=== PATIENT | male | born 1970 | race Caucasian/White ===

== ENCOUNTER 2016-09-28 19:17 | Emergency (ER) | payer MEDICAID, OTHER ==
[~2016-09-28] VITALS: Ht 170.2 cm; Wt 86.2 kg
[2016-09-28 19:56] LABS: BASOPHILS # (AUTO) 0.1 /CMM (0.0-0.2); BASOPHILS % (AUTO) 1.1 % (0.0-2.0); DIFF TOTAL % 100 %; EOSINOPHILS # (AUTO) 0.2 /CMM (0.0-0.7); EOSINOPHILS % (AUTO) 2.5 % (0.0-6.0); HEMATOCRIT 43 % (39-51); HEMOGLOBIN 14.6 g/dL (13.5-17.5); LYMPHOCYTES # (AUTO) 1.7 /CMM (0.8-4.8); LYMPHOCYTES % (AUTO) 22.7 % (20.0-44.0); MEAN CORPUSCULAR HEMOGLOBIN 31 PG (26.0-33.0); MEAN CORPUSCULAR HGB CONC 34 g/dl (31.0-36.0); MEAN CORPUSCULAR VOLUME 89 fL (80-96); MONOCYTES # (AUTO) 0.8 /CMM (0.1-1.30); MONOCYTES % (AUTO) 10.1 % (2.0-12.0); NEUTROPHILS # (AUTO) 4.9 /CMM (1.8-8.9); NEUTROPHILS % (AUTO) 63.6 % (43.0-81.0); PLATELET COUNT (AUTO) 317 /CMM (150-450); RED BLOOD CELL COUNT(AUTO) 4.78 MIL/uL (4.5-6.0); WHITE BLOOD COUNT (AUTO) 7.7 K/uL (4.3-11.0)
[2016-09-28 20:07] LABS: ANION GAP 13 (5-14); CALCIUM, SERUM 8.5 mg/dL (8.5-10.1); CARBON DIOXIDE 26 mmol/L (21-32); CHLORIDE 104 mmol/L (98-107); GFR 80 mL/min (>60); GLUCOSE 102 mg/dL (74-106); POTASSIUM 3.9 mmol/L (3.5-5.1); SODIUM SERUM 139 mmol/L (136-145); UREA NITROGEN, BLOOD 13 mg/dL (7-18)
[2016-09-28 20:17] LABS: ALANINE AMINOTRANSFERASE 67 U/L (12-78); ALBUMIN 3.9 g/dL (3.4-5.0); ASPARTATE AMINOTRANSFERASE 30 U/L (15-37); BILIRUBIN,TOTAL 0.2 mg/dL (0.2-1.0); TOTAL PROTEIN, SERUM 7.3 g/dL (6.4-8.2)
[2016-09-28 20:18] LABS: ACETAMINOPHEN 0 ug/ml (10-30); INDIRECT BILIRUBIN 0.2 mg/dL (0.0-1.1); SALICYLATE 2.7 mg/dL (2.8-20.0)
[2016-09-28 20:41] LABS: ADD UA MICROSCOPIC NO; KETONES,URINE Negative (NEGATIVE); LEUKOCYTE ESTERASE ,URINE Negative (NEGATIVE); PH,URINE 5.5 (5.0-8.0)
[2016-09-28 20:46] LABS: CANNABINOID, URINE NEGATIVE (NEGATIVE); PHENCYCLIDINE SCREEN,URINE NEGATIVE (NEGATIVE)
[2016-09-29 00:07] VITALS: BP 128/84
== END 2016-09-29 00:07 | disposition home or self-care (01) ==
LOC: ER 19:21
DX: F41.9 Anxiety disorder, unspecified (principal); K75.9 Inflammatory liver disease, unspecified; F22 Delusional disorders; Z88.1 Allergy status to other antibiotic agents; Z88.6 Allergy status to analgesic agent
CPT/HCPCS: 36415; 80048-TC; 80076-TC; 80305; 81000-TC; 85025-TC; A4606; G6038-TC; G6039-TC; G6040-TC; Z7610

== ENCOUNTER 2016-09-29 07:30 | Emergency (ER) | payer OTHER ==
[~2016-09-29] VITALS: Ht 170.2 cm; Wt 86.2 kg
[2016-09-29 07:38] VITALS: BP 141/79
== END 2016-09-29 08:20 | disposition left against medical advice (07) ==
LOC: ER 07:32
DX: F41.9 Anxiety disorder, unspecified (principal); Z88.1 Allergy status to other antibiotic agents; Z88.6 Allergy status to analgesic agent
CPT/HCPCS: A4606; Z7610

== ENCOUNTER 2017-05-17 16:50 | Emergency (ER) | payer OTHER ==
[~2017-05-17] VITALS: Ht 170.2 cm; Wt 86.2 kg
[2017-05-17 17:08] VITALS: BP 141/69
== END 2017-05-17 17:35 | disposition home or self-care (01) ==
LOC: ER 16:51
DX: Z76.0 Encounter for issue of repeat prescription (principal); Z76.5 Malingerer [conscious simulation]; K75.9 Inflammatory liver disease, unspecified; F20.0 Paranoid schizophrenia; F41.9 Anxiety disorder, unspecified; K46.9 Unspecified abdominal hernia without obstruction or gangrene; Z88.1 Allergy status to other antibiotic agents; Z88.8 Allergy status to other drugs, medicaments and biological substances
CPT/HCPCS: 99283; A4606; Z7610

== ENCOUNTER 2017-06-29 13:57 | Emergency (ER) | payer OTHER ==
[~2017-06-29] VITALS: Ht 170.2 cm; Wt 93.0 kg
[2017-06-29 14:06] VITALS: BP 128/72
--- NOTE | 2017-06-29 14:33 | NUR ---
URINE SENT TO LAB
[2017-06-29 14:57] LABS: BASOPHILS % (AUTO) 0.6 % (0.0-2.0); EOSINOPHILS # (AUTO) 0.2 /CMM (0.0-0.7); EOSINOPHILS % (AUTO) 2.9 % (0.0-6.0); HEMATOCRIT 42 % (39-51); HEMOGLOBIN 14.1 g/dL (13.5-17.5); LYMPHOCYTES # (AUTO) 2.2 /CMM (0.8-4.8); LYMPHOCYTES % (AUTO) 30.9 % (20.0-44.0); MEAN CORPUSCULAR HEMOGLOBIN 29 PG (26.0-33.0); MEAN CORPUSCULAR HGB CONC 33 g/dl (31.0-36.0); MEAN CORPUSCULAR VOLUME 88 fL (80-96); MONOCYTES # (AUTO) 0.9 /CMM (0.1-1.30); MONOCYTES % (AUTO) 11.7 % (2.0-12.0); NEUTROPHILS % (AUTO) 53.9 % (43.0-81.0); PLATELET COUNT (AUTO) 252 /CMM (150-450); RDW COEFFICIENT OF VARIATION 13.3 (11.5-15.0); RED BLOOD CELL COUNT(AUTO) 4.81 MIL/uL (4.5-6.0); WHITE BLOOD COUNT (AUTO) 7.3 K/uL (4.3-11.0)
[2017-06-29 15:06] LABS: CALCIUM, SERUM 8.6 mg/dL (8.5-10.1); POTASSIUM 4.3 mmol/L (3.5-5.1)
[2017-06-29 15:12] LABS: ALBUMIN 3.6 g/dL (3.4-5.0); BILIRUBIN,TOTAL 0.2 mg/dL (0.2-1.0)
[2017-06-29] MEDS ORDERED: LORAZEPAM INJ 2 MG/ML VIAL ONE (15:28)
[2017-06-29] MEDS ORDERED: LORAZEPAM INJ 2 MG/ML VIAL IM ONE (15:30)
== END 2017-06-29 15:44 | disposition home or self-care (01) ==
LOC: ER 14:01
DX: F41.9 Anxiety disorder, unspecified (principal); F20.9 Schizophrenia, unspecified; Z88.1 Allergy status to other antibiotic agents; Z88.6 Allergy status to analgesic agent
CPT/HCPCS: 36415; 80053; 83690; 85025; 96372; 99284; A4606; J2060; Z7610

== ENCOUNTER 2017-07-12 12:27 | Emergency (ER) | payer OTHER ==
[~2017-07-12] VITALS: Ht 170.2 cm; Wt 72.6 kg
[2017-07-12 12:31] VITALS: BP 132/98
--- NOTE | 2017-07-12 12:39 | NUR ---
PT VERBALLY DISCHARGE. STABLE CONDITION.
== END 2017-07-12 12:40 | disposition home or self-care (01) ==
LOC: ER 12:28
DX: F41.9 Anxiety disorder, unspecified (principal); Z76.0 Encounter for issue of repeat prescription; K75.9 Inflammatory liver disease, unspecified; F20.0 Paranoid schizophrenia; Z88.1 Allergy status to other antibiotic agents; Z88.8 Allergy status to other drugs, medicaments and biological substances
CPT/HCPCS: 99284; A4606; Z7610

== ENCOUNTER 2017-07-15 12:10 | Emergency (ER) | payer OTHER ==
[~2017-07-15] VITALS: Ht 170.2 cm; Wt 90.7 kg
--- NOTE | 2017-07-15 12:20 | NUR ---
SELF PRESENTS TO ER C/O " PARANOID ANXIOUS, PEOPLE FOLLOWING ME" DENIES SI/HI. A/OX4. BREATHING EVEN AND UNLABORED. NO SOB. VITALS STABLE. SAFETY AND COMFORT MEASURES IN PLACE. AWAITING MD ORDERS.
[2017-07-15] MEDS ORDERED: LORAZEPAM INJ 2 MG/ML VIAL ONE (12:47)
[2017-07-15 12:58] LABS: BASOPHILS # (AUTO) 0.1 /CMM (0.0-0.2); BASOPHILS % (AUTO) 0.8 % (0.0-2.0); EOSINOPHILS # (AUTO) 0.2 /CMM (0.0-0.7); EOSINOPHILS % (AUTO) 3.3 % (0.0-6.0); HEMATOCRIT 42 % (39-51); HEMOGLOBIN 14.1 g/dL (13.5-17.5); LYMPHOCYTES # (AUTO) 2.5 /CMM (0.8-4.8); LYMPHOCYTES % (AUTO) 33.9 % (20.0-44.0); MEAN CORPUSCULAR HEMOGLOBIN 30 PG (26.0-33.0); MEAN CORPUSCULAR HGB CONC 34 g/dl (31.0-36.0); MEAN CORPUSCULAR VOLUME 89 fL (80-96); MONOCYTES # (AUTO) 0.9 /CMM (0.1-1.30); MONOCYTES % (AUTO) 11.9 % (2.0-12.0); NEUTROPHILS # (AUTO) 3.5 /CMM (1.8-8.9); NEUTROPHILS % (AUTO) 50.1 % (43.0-81.0); PLATELET COUNT (AUTO) 266 /CMM (150-450); WHITE BLOOD COUNT (AUTO) 7.2 K/uL (4.3-11.0)
[2017-07-15 13:00] LABS: APPEARANCE,URINE Clear (CLEAR); BILIRUBIN,URINE Negative (NEGATIVE); BLOOD, URINE Negative Ery/uL (NEGATIVE); COLOR,URINE Yellow (YELLOW); KETONES,URINE Negative (NEGATIVE); LEUKOCYTE ESTERASE ,URINE Negative (NEGATIVE); NITRITE, URINE Negative (NEGATIVE); PH,URINE 5.5 (5.0-8.0); PROTEIN,URINE Negative (NEGATIVE); UGLUCOSE Negative (NEGATIVE); UROBILINOGEN,URINE 0.2 EU/dL (0.2)
[2017-07-15] MEDS ORDERED: LORAZEPAM INJ 2 MG/ML VIAL IVP ONE (13:00)
[2017-07-15] MEDS ORDERED: IV NS 0.9% 1,000 ML BAG IV ONE (13:00)
--- NOTE | 2017-07-15 13:02 | NUR ---
NEW IV STARTED ON LAC, 18 G. BLOOD DRAWN AND SENT TO LAB. PATIENT MEDICATED PER MD ORDERS.
[2017-07-15 13:09] LABS: CALCIUM, SERUM 8.5 mg/dL (8.5-10.1); CREATININE 0.9 mg/dL (0.6-1.3); POTASSIUM 3.8 mmol/L (3.5-5.1)
[2017-07-15 13:12] LABS: INR 0.86 (0.87-1.13); PROTHROMBIN TIME 8.9 SECS (9.5-12.7)
[2017-07-15 13:15] LABS: ALBUMIN 3.6 g/dL (3.4-5.0); BILIRUBIN,TOTAL 0.2 mg/dL (0.2-1.0)
[2017-07-15 16:03] VITALS: BP 134/76
--- NOTE | 2017-07-15 16:04 | NUR ---
IV removed. Catheter intact and site benign. Pressure and 4x4 applied to site. No bleeding noted. Patient discharged to home in stable condition. Written and verbal after care instructions given. Patient verbalizes understanding of instruction.
== END 2017-07-15 16:03 | disposition home or self-care (01) ==
LOC: ER 12:12
DX: F41.0 Panic disorder [episodic paroxysmal anxiety] (principal); Z86.19 Personal history of other infectious and parasitic diseases; F20.9 Schizophrenia, unspecified; F22 Delusional disorders; F17.200 Nicotine dependence, unspecified, uncomplicated; R79.1 Abnormal coagulation profile; Z88.6 Allergy status to analgesic agent; Z88.1 Allergy status to other antibiotic agents
CPT/HCPCS: 36415; 80048; 80076; 81001; 83690; 85025; 85730; 96361; 96374; 99284; A4606; J2060; J7030; Z7610; 81000-TC

== ENCOUNTER 2017-07-16 15:00 | Emergency (ER) | payer OTHER ==
[~2017-07-16] VITALS: Ht 170.2 cm; Wt 90.7 kg
--- NOTE | 2017-07-16 15:10 | NUR ---
SELF PRESENTS TO ER C/O DEPRESSION . DENIES SI/HI. ALSO C/O MILD NECK AND BACK PAIN. A/OX 4. BREATHING EVEN AND UNLABORED. NO SOB. VITALS STABLE. SAFETY AND COMFORT MEASURES IN PLACE. AWAITING MD ORDERS.
--- NOTE | 2017-07-16 16:03 | NUR ---
CALLED ART FOR PSYCH EVAL, ETA WITHIN THE HOUR
[2017-07-16] MEDS ORDERED: TRAMADOL HCL 50 MG TABLET ONE (16:26)
[2017-07-16] MEDS ORDERED: TRAMADOL HCL 50 MG TABLET PO ONE (16:30)
--- NOTE | 2017-07-16 16:30 | NUR ---
PATIENT MEDICATED PER MD ORDERS.
[2017-07-16] MEDS ORDERED: OLANZAPINE 5 MG/TAB.RAPDIS ONE (18:30)
[2017-07-16] MEDS ORDERED: OLANZAPINE 5 MG/TAB.RAPDIS PO ONE (18:30)
--- NOTE | 2017-07-16 19:00 | NUR ---
ASSUME PT CARE. RESTING IN BED. PROVIDED W/ SANDWICH AND ORAL FLUIDS. STABLE VITALS. SILVIA CONTINUE TO MONITOR.
--- NOTE | 2017-07-16 19:25 | NUR ---
FAXED PAPER WORK TO INTAKE AT [facility], I ALSO SPOKE WITH MAURILIO AND SHE NOTIFIED ME THAT THEY ARE WAITING FOR A DISCHARGE
--- NOTE | 2017-07-16 21:30 | NUR ---
SLEEPING. ON MONITOR. STABLE VITALS. WILL CONT TO MONITOR.
--- NOTE | 2017-07-16 23:25 | NUR ---
REPORT TO CHARGE NURSE ALLIE FOR [facility].
--- NOTE | 2017-07-17 01:53 | NUR ---
PT SLEEPING IN NAD, PT ON MONITOR, MD MADE AWARE WILL CONTINUE TO MONITOR.
--- NOTE | 2017-07-17 03:59 | NUR ---
Patient is resting comfortably in bed with eyes closed. Easily aroused. VSS
--- NOTE | 2017-07-17 05:51 | NUR ---
PT IN BED SLEEPING IN NAD, PT EASILY ARROUSIBLE, MD MADE AWARE WILL CONTINUE TO MONITOR.
--- NOTE | 2017-07-17 05:55 | NUR ---
[facility] CALLED AND THERE IS A BED AVAILABLE FOR PT
--- NOTE | 2017-07-17 06:30 | NUR ---
PT TOOK A TRAXI TO [facility] ALL LABS WERE GIVEN TO PT PRIOR TO LEAVING
[2017-07-17 07:14] VITALS: BP 116/76
== END 2017-07-17 07:14 ==
LOC: ER 15:05
DX: Z02.89 Encounter for other administrative examinations (principal); F32.9 Major depressive disorder, single episode, unspecified; F20.9 Schizophrenia, unspecified; F41.9 Anxiety disorder, unspecified; F17.200 Nicotine dependence, unspecified, uncomplicated; F22 Delusional disorders; Z86.19 Personal history of other infectious and parasitic diseases; Z88.1 Allergy status to other antibiotic agents; Z88.6 Allergy status to analgesic agent
CPT/HCPCS: 36415; 80305; A4606; G0480; Z7610

== ENCOUNTER 2017-08-16 13:43 | Emergency (ER) | payer OTHER ==
[~2017-08-16] VITALS: Ht 167.6 cm; Wt 72.6 kg
--- NOTE | 2017-08-16 15:25 | NUR ---
PRESENTS TO ER C/O PARANOIA. PATIENT A/OX 4, BUT SEEN TALKING TO SELF. PATIENT BREATHING EVEN AND UNLABORED. NO SOB. VITALS STABLE. SAFETY AND COMFORT MEASURES IN PLACE. AWAITING MD ORDERS.
[2017-08-16] MEDS ORDERED: OLANZAPINE 10 MG VIAL IM ONE ×2 (15:30→15:40)
[2017-08-16 15:42] LABS: BASOPHILS # (AUTO) 0.1 /CMM (0.0-0.2); BASOPHILS % (AUTO) 1.1 % (0.0-2.0); EOSINOPHILS # (AUTO) 0.2 /CMM (0.0-0.7); EOSINOPHILS % (AUTO) 2.8 % (0.0-6.0); HEMATOCRIT 45 % (39-51); LYMPHOCYTES # (AUTO) 2.6 /CMM (0.8-4.8); LYMPHOCYTES % (AUTO) 37.9 % (20.0-44.0); MEAN CORPUSCULAR HEMOGLOBIN 29 PG (26.0-33.0); MEAN CORPUSCULAR HGB CONC 33 g/dl (31.0-36.0); MEAN CORPUSCULAR VOLUME 88 fL (80-96); MONOCYTES # (AUTO) 0.7 /CMM (0.1-1.30); NEUTROPHILS # (AUTO) 3.2 /CMM (1.8-8.9); NEUTROPHILS % (AUTO) 47.2 % (43.0-81.0); PLATELET COUNT (AUTO) 347 /CMM (150-450); RDW COEFFICIENT OF VARIATION 13.2 (11.5-15.0); WHITE BLOOD COUNT (AUTO) 6.8 K/uL (4.3-11.0)
--- NOTE | 2017-08-16 15:46 | NUR ---
PATIENT MEDICATED PER MD ORDERS.
[2017-08-16 15:51] LABS: CARBON DIOXIDE 29 mmol/L (21-32); CHLORIDE 103 mmol/L (98-107); GLUCOSE 87 mg/dL (74-106); POTASSIUM 3.7 mmol/L (3.5-5.1); SODIUM SERUM 141 mmol/L (136-145); UREA NITROGEN, BLOOD 8 mg/dL (7-18)
[2017-08-16 16:04] LABS: ALANINE AMINOTRANSFERASE 81 U/L (12-78); ALBUMIN 4.3 g/dL (3.4-5.0); ALCOHOL, BLOOD < 3 mg/dL (0-0); ALKALINE PHOSPHATASE 85 U/L (46-116); ASPARTATE AMINOTRANSFERASE 38 U/L (15-37); BILIRUBIN,DIRECT 0.1 mg/dL (0.0-0.2); BILIRUBIN,TOTAL 0.7 mg/dL (0.2-1.0)
[2017-08-16 16:05] LABS: ACETAMINOPHEN < 2 ug/ml (10-30); SALICYLATE 2.2 mg/dL (2.8-20.0)
--- NOTE | 2017-08-16 19:00 | NUR ---
patient is resting in er bed. no distress noted, skin warm and dry. 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 will continue to monitor
--- NOTE | 2017-08-16 22:31 | NUR ---
urine sample obtained and sent to lab
[2017-08-16 23:07] LABS: APPEARANCE,URINE CLEAR (CLEAR); BILIRUBIN,URINE NEGATIVE (NEGATIVE); BLOOD, URINE NEGATIVE Ery/uL (NEGATIVE); COLOR,URINE YELLOW (YELLOW); KETONES,URINE NEGATIVE (NEGATIVE); LEUKOCYTE ESTERASE ,URINE NEGATIVE (NEGATIVE); NITRITE, URINE NEGATIVE (NEGATIVE); PROTEIN,URINE NEGATIVE (NEGATIVE); UGLUCOSE NEGATIVE (NEGATIVE); UROBILINOGEN,URINE 0.2 EU/dL (0.2)
--- NOTE | 2017-08-16 23:15 | NUR ---
CALLED ART PRODUCT MARKETING INTERN.
--- NOTE | 2017-08-17 01:05 | NUR ---
ART AT BED SIDE FOR PSYCH EVAL
--- NOTE | 2017-08-17 01:32 | NUR ---
per Art, we are awaiting call back from [facility] for placement Luan agrawal; [phone]
--- NOTE | 2017-08-17 01:59 | NUR ---
SPOKE WITH YI FROM [facility]. ACCEPTED DR. MARTINEZ. CALL [phone] FOR [id number] REPORT. CAN TRANSPORT S/P REPORT PER YI
--- NOTE | 2017-08-17 02:10 | NUR ---
SARIKA RN TOOK REPORT. PT WILL GO TO UNIT 1
--- NOTE | 2017-08-17 02:14 | NUR ---
[facility] CALLED FOR TRANSPORT. ETA: [phone] TRIP #: [id number]
--- NOTE | 2017-08-17 03:14 | NUR ---
REPORT WAS GIVEN TO EMT FOR TRANSPORT TO [facility]
[2017-08-17 03:16] VITALS: BP 126/77
== END 2017-08-17 03:16 ==
LOC: ER 13:46
DX: Z04.6 Encounter for general psychiatric examination, requested by authority (principal); F41.9 Anxiety disorder, unspecified; Z86.19 Personal history of other infectious and parasitic diseases; F20.0 Paranoid schizophrenia; F17.200 Nicotine dependence, unspecified, uncomplicated; Z88.1 Allergy status to other antibiotic agents; Z88.6 Allergy status to analgesic agent
CPT/HCPCS: 36415; 80048; 80076; 80305; 80329; 81001; 85025; 96372; 99284; A4606; G0480 ×2; J3490; Z7610; 81000-TC

== ENCOUNTER 2017-08-24 12:51 | Emergency (ER) | payer OTHER ==
[~2017-08-24] VITALS: Ht 170.2 cm; Wt 90.7 kg
--- NOTE | 2017-08-24 13:20 | NUR ---
AAOX3, C/O COUGH AND HEADACHE. RR IS EVEN AND UNLABORED WITH NAD NOTED. SKIN IS WARM AND DRY. AWIATING MD FOR EVAL.
--- NOTE | 2017-08-24 13:42 | NUR ---
CALLED RT FOR BREATHING TREATMENT.
[2017-08-24] MEDS: ALBUTEROL FS 2.5 MG/3 ML VIAL.NEB NEB ONE (13:46)
[2017-08-24] MEDS: IPRATROPIUM NEB FS 0.5 MG/2.5 ML AMPUL.NEB NEB ONE (13:46)
[2017-08-24] MEDS ORDERED: IPRATROPIUM NEB FS 0.5 MG/2.5 ML AMPUL.NEB ONE (13:49)
[2017-08-24] MEDS ORDERED: ALBUTEROL FS 2.5 MG/0.5 ML VIAL.NEB ONE (13:49)
[2017-08-24] MEDS ORDERED: HYDROCODONE/APAP 5/325MG 1 EACH TABLET ONE (14:17)
[2017-08-24] MEDS ORDERED: IBUPROFEN 600 MG TABLET PO ONE (14:18)
[2017-08-24] MEDS: HYDROCODONE/APAP 5/325MG 1 EACH TABLET PO ONE (14:18)
[2017-08-24] MEDS: IBUPROFEN 600 MG TABLET PO ONE (14:20)
[2017-08-24] MEDS ORDERED: LORAZEPAM 1 MG TABLET ONE (14:54)
[2017-08-24] MEDS: LORAZEPAM 1 MG TABLET PO ONE (14:56)
[2017-08-24] MEDS: predniSONE 20 MG TABLET PO ONE (14:56)
--- NOTE | 2017-08-24 14:56 | NUR ---
Patient discharged to home in stable condition. Written and verbal after care instructions given. Patient verbalizes understanding of instruction.
[2017-08-24 14:57] VITALS: BP 136/92
== END 2017-08-24 15:00 | disposition home or self-care (01) ==
LOC: ER 12:55
DX: J40 Bronchitis, not specified as acute or chronic (principal); F41.9 Anxiety disorder, unspecified; F17.200 Nicotine dependence, unspecified, uncomplicated; F20.9 Schizophrenia, unspecified; Z86.19 Personal history of other infectious and parasitic diseases; Z88.1 Allergy status to other antibiotic agents; Z88.6 Allergy status to analgesic agent
CPT/HCPCS: 71010; 94640; 99284; 99406; A4606; J7512; Z7610

== ENCOUNTER 2017-09-03 02:42 | Emergency (ER) | payer OTHER ==
[~2017-09-03] VITALS: Ht 170.2 cm; Wt 90.7 kg
--- NOTE | 2017-09-03 03:00 | NUR ---
TO BED 12 A 46 YO MALE PATIENT BIBSELF C/O INABILITY TO CONCETRATE DUE TO ANXIETY. ALSO PATIENT IS COMPLAINING OF LEFT ANKLE PAIN. PATIENT UNABLE TO DETERMINE CAUSE OF PAIN. VSS. NAD NOTED. NONDIAPHORETIC. COMFORT AND SAFETY MEASURES IN PLACE.
[2017-09-03] MEDS ORDERED: LORAZEPAM 1 MG TABLET PO ONE (04:00)
[2017-09-03] MEDS ORDERED: HYDROCODONE/APAP 5/325MG 1 EACH TABLET PO ONE (04:00)
--- NOTE | 2017-09-03 06:00 | NUR ---
PATIENT REFUSED NANCY WRAP ORDERED BY DR HAIR. ENCOURAGED PATIENT X3, HEALTH TEACHINGS DONE, PATIENT STILL REFUSED AND SAID, "I DONT NEED IT."
[2017-09-03] MEDS ORDERED: LORAZEPAM 1 MG TABLET ONE (06:04)
[2017-09-03] MEDS ORDERED: HYDROCODONE/APAP 5/325MG 1 EACH TABLET ONE (06:04)
--- NOTE | 2017-09-03 06:13 | NUR ---
Patient discharged to home in stable condition. Written and verbal after care instructions given. Patient verbalizes understanding of instruction. Cj is ambulatory with steady gait. vss. nad on dc. No further complaints.
[2017-09-03 06:14] VITALS: BP 154/98
== END 2017-09-03 06:14 | disposition home or self-care (01) ==
LOC: ER 02:44
DX: M25.572 Pain in left ankle and joints of left foot (principal); B19.20 Unspecified viral hepatitis C without hepatic coma; F41.9 Anxiety disorder, unspecified; F17.200 Nicotine dependence, unspecified, uncomplicated; Z59.0 Homelessness; Z71.6 Tobacco abuse counseling; F20.9 Schizophrenia, unspecified; Z88.1 Allergy status to other antibiotic agents; Z88.6 Allergy status to analgesic agent
CPT/HCPCS: 73610-TC; A4606; Z7610

== ENCOUNTER 2017-09-05 07:50 | Emergency (ER) | payer OTHER ==
[~2017-09-05] VITALS: Ht 170.2 cm; Wt 90.7 kg
--- NOTE | 2017-09-05 07:53 | NUR ---
CALLED FOR TRIAGE, NO RESPONSE, PT PHYSICALLY NOT IN WAITING ROOM
--- NOTE | 2017-09-05 08:12 | NUR ---
BB SELF FOR MEDICAL CLEARANCE FOR [facility] PER PT. PATIENT REPORTED SI WITH NO SPECIFIC PLAN. PT IS AFEBRILE. VSS.
--- NOTE | 2017-09-05 08:22 | NUR ---
CALLED [facility]YCHAITRIC LABOR[facility] JULIAN SHIN FOR EVALUATION
[2017-09-05] MEDS ORDERED: LORAZEPAM 1 MG TABLET PO ONE (08:30)
[2017-09-05] MEDS ORDERED: LORAZEPAM 1 MG TABLET ONE (08:34)
[2017-09-05 08:39] LABS: BASOPHILS # (AUTO) 0.1 /CMM (0.0-0.2); BASOPHILS % (AUTO) 0.7 % (0.0-2.0); EOSINOPHILS # (AUTO) 0.1 /CMM (0.0-0.7); EOSINOPHILS % (AUTO) 0.7 % (0.0-6.0); HEMATOCRIT 40 % (39-51); HEMOGLOBIN 13.5 g/dL (13.5-17.5); LYMPHOCYTES # (AUTO) 2.6 /CMM (0.8-4.8); LYMPHOCYTES % (AUTO) 24.2 % (20.0-44.0); MEAN CORPUSCULAR HEMOGLOBIN 30 PG (26.0-33.0); MEAN CORPUSCULAR HGB CONC 34 g/dl (31.0-36.0); MEAN CORPUSCULAR VOLUME 88 fL (80-96); MONOCYTES # (AUTO) 0.9 /CMM (0.1-1.30); MONOCYTES % (AUTO) 8.8 % (2.0-12.0); NEUTROPHILS # (AUTO) 6.9 /CMM (1.8-8.9); NEUTROPHILS % (AUTO) 65.6 % (43.0-81.0); PLATELET COUNT (AUTO) 395 /CMM (150-450); RDW COEFFICIENT OF VARIATION 13.6 (11.5-15.0); RED BLOOD CELL COUNT(AUTO) 4.53 MIL/uL (4.5-6.0); WHITE BLOOD COUNT (AUTO) 10.6 K/uL (4.3-11.0)
[2017-09-05 08:47] LABS: CALCIUM, SERUM 8.6 mg/dL (8.5-10.1); CARBON DIOXIDE 28 mmol/L (21-32); CHLORIDE 104 mmol/L (98-107); CREATININE 0.9 mg/dL (0.6-1.3); GLUCOSE 93 mg/dL (74-106); POTASSIUM 3.4 mmol/L (3.5-5.1); SODIUM SERUM 141 mmol/L (136-145); UREA NITROGEN, BLOOD 20 mg/dL (7-18)
[2017-09-05 08:56] LABS: ALANINE AMINOTRANSFERASE 59 U/L (12-78); ALBUMIN 3.6 g/dL (3.4-5.0); ALCOHOL, BLOOD < 3 mg/dL (0-0); ALKALINE PHOSPHATASE 78 U/L (46-116); ASPARTATE AMINOTRANSFERASE 25 U/L (15-37); BILIRUBIN,DIRECT 0.1 mg/dL (0.0-0.2); BILIRUBIN,TOTAL 0.7 mg/dL (0.2-1.0); TOTAL PROTEIN, SERUM 7.3 g/dL (6.4-8.2)
[2017-09-05 08:57] LABS: ACETAMINOPHEN < 10 ug/ml (10-30); SALICYLATE 2.3 mg/dL (2.8-20.0)
[2017-09-05] MEDS ORDERED: FLUOXETINE HCL 20 MG CAPSULE PO SCH (09:00)
[2017-09-05 10:08] LABS: APPEARANCE,URINE Clear (CLEAR); BILIRUBIN,URINE SMALL (NEGATIVE); BLOOD, URINE Negative Ery/uL (NEGATIVE); COLOR,URINE Yellow (YELLOW); KETONES,URINE Negative (NEGATIVE); LEUKOCYTE ESTERASE ,URINE Negative (NEGATIVE); NITRITE, URINE Negative (NEGATIVE); PH,URINE 5.5 (5.0-8.0); PROTEIN,URINE 30 mg/dl (NEGATIVE); UGLUCOSE Negative (NEGATIVE); UROBILINOGEN,URINE 0.2 EU/dL (0.2)
[2017-09-05 10:18] LABS: RBC,URINE 0-2 /HPF (0-2); WBC,URINE 0-2 /HPF (0-3)
[2017-09-05 10:19] LABS: BACTERIA,URINE Rare /HPF (None Seen); SQUAMOUS EPITHELIAL CELL,UR Few /HPF (None Seen)
[2017-09-05 12:29] VITALS: BP 129/68
== END 2017-09-05 12:29 | disposition home or self-care (01) ==
LOC: ER 07:53
DX: R45.851 Suicidal ideations (principal); F32.9 Major depressive disorder, single episode, unspecified; F41.9 Anxiety disorder, unspecified; F15.10 Other stimulant abuse, uncomplicated; F10.10 Alcohol abuse, uncomplicated; F17.200 Nicotine dependence, unspecified, uncomplicated; B19.20 Unspecified viral hepatitis C without hepatic coma; F20.0 Paranoid schizophrenia; Z88.6 Allergy status to analgesic agent; Z88.1 Allergy status to other antibiotic agents
CPT/HCPCS: 36415; 80048; 80076; 80305; 80329; 81001; 85025; 99284; 99406; A4606; G0480 ×2; Z7610; 81000-TC

== ENCOUNTER 2017-09-05 21:43 | Emergency (ER) | payer OTHER ==
[~2017-09-05] VITALS: Ht 170.2 cm; Wt 90.7 kg
[2017-09-05 22:13] VITALS: BP 115/71
== END 2017-09-06 06:55 | disposition home or self-care (01) ==
LOC: ER 21:45
DX: Z00.8 Encounter for other general examination (principal); B19.20 Unspecified viral hepatitis C without hepatic coma; F41.9 Anxiety disorder, unspecified; F17.200 Nicotine dependence, unspecified, uncomplicated; F20.0 Paranoid schizophrenia; Z88.6 Allergy status to analgesic agent; Z88.1 Allergy status to other antibiotic agents
CPT/HCPCS: 99281; A4606; Z7610; Z7502

== ENCOUNTER 2017-10-22 12:33 | Emergency (ER) | payer OTHER ==
[~2017-10-22] VITALS: Ht 170.2 cm; Wt 90.7 kg
--- NOTE | 2017-10-22 12:40 | NUR ---
PRESENTS TO ER, DISCHARGED 3 HRS AGO FROM [facility], STILL FEELING DEPRESSED. NO SI/HI. A/OX 4. BREATHING EVEN AND UNLABORED. NO SOB. VITALS STABLE. SAFTEY AND COMFORT MEASURES IN PLACE. AWAITING MD ORDERS.
--- NOTE | 2017-10-22 13:11 | NUR ---
SPOKE WITH [place],INTAKE AT [facility], WANTS FACESHEET AND MEDICAL CLEARANCE FAXED TO [phone], CELL IS [phone], CARI WILLIS AWARE. PT ALSO REQUESTED TO GO TO [facility]
[2017-10-22] MEDS ORDERED: ACETAMINOPHEN 325 MG TABLET PO ONE (13:30)
[2017-10-22 13:44] LABS: BASOPHILS % (AUTO) 0.7 % (0.0-2.0); EOSINOPHILS # (AUTO) 0.2 /CMM (0.0-0.7); EOSINOPHILS % (AUTO) 3.6 % (0.0-6.0); HEMATOCRIT 40 % (39-51); HEMOGLOBIN 13.5 g/dL (13.5-17.5); MEAN CORPUSCULAR HEMOGLOBIN 30 PG (26.0-33.0); MEAN CORPUSCULAR HGB CONC 34 g/dl (31.0-36.0); MEAN CORPUSCULAR VOLUME 88 fL (80-96); MONOCYTES # (AUTO) 0.9 /CMM (0.1-1.30); NEUTROPHILS # (AUTO) 3.1 /CMM (1.8-8.9); NEUTROPHILS % (AUTO) 49.7 % (43.0-81.0); PLATELET COUNT (AUTO) 277 /CMM (150-450); RDW COEFFICIENT OF VARIATION 14.5 (11.5-15.0); RED BLOOD CELL COUNT(AUTO) 4.48 MIL/uL (4.5-6.0); WHITE BLOOD COUNT (AUTO) 6.3 K/uL (4.3-11.0)
[2017-10-22 13:47] LABS: APPEARANCE,URINE CLEAR (CLEAR); BILIRUBIN,URINE NEGATIVE (NEGATIVE); BLOOD, URINE NEGATIVE Ery/uL (NEGATIVE); COLOR,URINE YELLOW (YELLOW); KETONES,URINE NEGATIVE (NEGATIVE); LEUKOCYTE ESTERASE ,URINE NEGATIVE (NEGATIVE); NITRITE, URINE NEGATIVE (NEGATIVE); PROTEIN,URINE NEGATIVE (NEGATIVE); UGLUCOSE NEGATIVE (NEGATIVE); UROBILINOGEN,URINE 0.2 EU/dL (0.2)
[2017-10-22] MEDS ORDERED: ACETAMINOPHEN ES 500 MG TABLET ONE (13:51)
--- NOTE | 2017-10-22 14:00 | NUR ---
PATIENT MEDICATED PER MD ORDERS.
[2017-10-22 14:14] LABS: ALANINE AMINOTRANSFERASE 74 U/L (12-78); ALBUMIN 3.5 g/dL (3.4-5.0); ALCOHOL, BLOOD < 3 mg/dL (0-0); ALKALINE PHOSPHATASE 97 U/L (46-116); ASPARTATE AMINOTRANSFERASE 30 U/L (15-37); BILIRUBIN,DIRECT 0.1 mg/dL (0.0-0.2); BILIRUBIN,TOTAL 0.2 mg/dL (0.2-1.0); CALCIUM, SERUM 8.8 mg/dL (8.5-10.1); CARBON DIOXIDE 27 mmol/L (21-32); CHLORIDE 106 mmol/L (98-107); CREATININE 0.9 mg/dL (0.6-1.3); GLUCOSE 86 mg/dL (74-106); POTASSIUM 4.3 mmol/L (3.5-5.1); SALICYLATE 3.1 mg/dL (2.8-20.0); SODIUM SERUM 142 mmol/L (136-145); UREA NITROGEN, BLOOD 15 mg/dL (7-18)
[2017-10-22 14:16] LABS: ACETAMINOPHEN < 2 ug/ml (10-30)
--- NOTE | 2017-10-22 14:40 | NUR ---
CALLED ART HOT PLATE PLYWOOD PRESS OPERATOR
--- NOTE | 2017-10-22 16:40 | NUR ---
CALLED [facility] INTAKE SPOKE WITH ANASTASIA, HE SAID HE WOULD CALL US WHEN A BED IS AVAILABLE.
[2017-10-22] MEDS ORDERED: LORAZEPAM 1 MG TABLET PO ONE (17:00)
--- NOTE | 2017-10-22 17:12 | NUR ---
CALLED [facility] FOR TRANSPORT ETA OF 1814 WAS GIVEN. TRIP#[id number]
--- NOTE | 2017-10-22 17:15 | NUR ---
REPORT GIVEN TO CHAKA SHIN AT [facility] UPON ADMISSION.
[2017-10-22] MEDS ORDERED: LORAZEPAM 1 MG TABLET ONE (17:23)
[2017-10-22 19:40] VITALS: BP 138/71
--- NOTE | 2017-10-22 19:40 | NUR ---
PATIENT TRANSFERRED TO [facility]. REPORT GIVEN TO EMT AT BEDSIDE. PATIENT TRANSFERRED IN STABLE CONDITION VIA AMBULANCE.
== END 2017-10-22 19:40 ==
LOC: ER 12:34
DX: Z04.6 Encounter for general psychiatric examination, requested by authority (principal); F32.9 Major depressive disorder, single episode, unspecified; M79.672 Pain in left foot; R45.851 Suicidal ideations; F15.10 Other stimulant abuse, uncomplicated; F41.9 Anxiety disorder, unspecified; F20.9 Schizophrenia, unspecified; F17.200 Nicotine dependence, unspecified, uncomplicated; Z88.1 Allergy status to other antibiotic agents; Z86.19 Personal history of other infectious and parasitic diseases; Z88.6 Allergy status to analgesic agent; Z60.2 Problems related to living alone
CPT/HCPCS: 36415; 73630; 80048; 80076; 80305; 80329; 81001; 85025; 99285; A4606; G0480 ×2; Z7610; 81000-TC

== ENCOUNTER 2017-12-14 17:31 | Emergency (ER) | payer OTHER ==
[~2017-12-14] VITALS: Ht 170.2 cm; Wt 97.1 kg
[2017-12-14 17:56] VITALS: BP 151/94
[2017-12-14] MEDS ORDERED: ALPRAZOLAM 0.5 MG TABLET ONE (18:19)
[2017-12-14] MEDS: ALPRAZOLAM 0.5 MG TABLET PO ONE (18:22)
== END 2017-12-14 18:33 | disposition home or self-care (01) ==
LOC: ER 17:32
DX: Z76.0 Encounter for issue of repeat prescription (principal); F41.9 Anxiety disorder, unspecified; F32.9 Major depressive disorder, single episode, unspecified; F20.0 Paranoid schizophrenia; F17.200 Nicotine dependence, unspecified, uncomplicated; Z86.19 Personal history of other infectious and parasitic diseases; Z88.1 Allergy status to other antibiotic agents; Z88.6 Allergy status to analgesic agent; Z60.2 Problems related to living alone
CPT/HCPCS: A4606; Z7610

== ENCOUNTER 2017-12-21 14:01 | Emergency (ER) | payer OTHER ==
[~2017-12-21] VITALS: Ht 170.2 cm; Wt 97.5 kg
[2017-12-21 14:07] VITALS: BP 119/84
[2017-12-21] MEDS ORDERED: LORAZEPAM 1 MG TABLET PO ONE (14:30)
[2017-12-21] MEDS ORDERED: LORAZEPAM 1 MG TABLET ONE (14:33)
== END 2017-12-21 14:41 | disposition home or self-care (01) ==
LOC: ER 14:02
DX: F41.9 Anxiety disorder, unspecified (principal); M54.5 Low back pain; F20.9 Schizophrenia, unspecified; F17.210 Nicotine dependence, cigarettes, uncomplicated; F15.10 Other stimulant abuse, uncomplicated; Z88.6 Allergy status to analgesic agent; Z86.19 Personal history of other infectious and parasitic diseases; Z88.1 Allergy status to other antibiotic agents; Z60.2 Problems related to living alone
CPT/HCPCS: 99284; A4606; Z7610

== ENCOUNTER 2018-01-20 20:44 | Emergency (ER) | payer OTHER ==
[~2018-01-20] VITALS: Ht 170.2 cm; Wt 93.0 kg
[2018-01-20] MEDS ORDERED: OLANZAPINE 5 MG TABLET PO ONE (21:30)
[2018-01-20] MEDS ORDERED: OLANZAPINE 5 MG TABLET ONE (21:37)
--- NOTE | 2018-01-20 21:42 | NUR ---
BB SELF; "I FEEL PARANOID, HEADACHE, CALF PAIN,", NAD NOTED, VSS, RESP EVEN AND UNLABORED, PT WAS PUT ON MONITOR, WAITING FOR MD SHARP.
[2018-01-20 21:43] LABS: BASOPHILS # (AUTO) 0.1 /CMM (0.0-0.2); BASOPHILS % (AUTO) 0.8 % (0.0-2.0); EOSINOPHILS % (AUTO) 4.4 % (0.0-6.0); HEMATOCRIT 41 % (39-51); HEMOGLOBIN 14.2 g/dL (13.5-17.5); LYMPHOCYTES # (AUTO) 2.6 /CMM (0.8-4.8); LYMPHOCYTES % (AUTO) 37.7 % (20.0-44.0); MEAN CORPUSCULAR HGB CONC 35 g/dl (31.0-36.0); MEAN CORPUSCULAR VOLUME 88 fL (80-96); MONOCYTES % (AUTO) 14.6 % (2.0-12.0); NEUTROPHILS # (AUTO) 2.9 /CMM (1.8-8.9); NEUTROPHILS % (AUTO) 42.5 % (43.0-81.0); PLATELET COUNT (AUTO) 283 /CMM (150-450); RDW COEFFICIENT OF VARIATION 13.5 (11.5-15.0); RED BLOOD CELL COUNT(AUTO) 4.61 MIL/uL (4.5-6.0); WHITE BLOOD COUNT (AUTO) 6.9 K/uL (4.3-11.0)
[2018-01-20 21:49] LABS: APPEARANCE,URINE Clear (CLEAR); BILIRUBIN,URINE Negative (NEGATIVE); BLOOD, URINE Negative Ery/uL (NEGATIVE); COLOR,URINE Yellow (YELLOW); KETONES,URINE Negative (NEGATIVE); LEUKOCYTE ESTERASE ,URINE Negative (NEGATIVE); NITRITE, URINE Negative (NEGATIVE); PROTEIN,URINE Negative (NEGATIVE); UGLUCOSE Negative (NEGATIVE)
[2018-01-20 21:52] LABS: BACTERIA,URINE Rare /HPF (None Seen); RBC,URINE NONE SEEN /HPF (0-2); SQUAMOUS EPITHELIAL CELL,UR Few /HPF (None Seen); WBC,URINE NONE SEEN /HPF (0-3)
[2018-01-20 21:54] LABS: CALCIUM, SERUM 8.3 mg/dL (8.5-10.1); CARBON DIOXIDE 27 mmol/L (21-32); CHLORIDE 105 mmol/L (98-107); GLUCOSE 98 mg/dL (74-106); POTASSIUM 3.5 mmol/L (3.5-5.1); SODIUM SERUM 139 mmol/L (136-145); UREA NITROGEN, BLOOD 21 mg/dL (7-18)
[2018-01-20 22:07] LABS: ALANINE AMINOTRANSFERASE 71 U/L (12-78); ALBUMIN 3.5 g/dL (3.4-5.0); ALKALINE PHOSPHATASE 94 U/L (46-116); ASPARTATE AMINOTRANSFERASE 50 U/L (15-37); BILIRUBIN,DIRECT 0.1 mg/dL (0.0-0.2); BILIRUBIN,TOTAL 0.4 mg/dL (0.2-1.0)
[2018-01-20 22:09] LABS: SALICYLATE 2.3 mg/dL (2.8-20.0)
[2018-01-20 22:12] LABS: ACETAMINOPHEN 0 ug/ml (10-30); ALCOHOL, BLOOD < 3 mg/dL (0-0)
--- NOTE | 2018-01-20 22:52 | NUR ---
CALLED ART CASING SEWER
--- NOTE | 2018-01-20 23:24 | NUR ---
Patient is resting comfortably in bed with eyes closed. Easily aroused. VSS
--- NOTE | 2018-01-21 08:10 | NUR ---
call received from [facility],accepted by dr gottlieb,report to [phone]
--- NOTE | 2018-01-21 08:33 | NUR ---
[facility]anz eta 2830
[2018-01-21 10:52] VITALS: BP 109/53
== END 2018-01-21 10:57 ==
LOC: ER 20:54
DX: R45.851 Suicidal ideations (principal); R51 Headache; R44.0 Auditory hallucinations; F20.9 Schizophrenia, unspecified; F41.9 Anxiety disorder, unspecified; F20.0 Paranoid schizophrenia; F10.10 Alcohol abuse, uncomplicated; F17.200 Nicotine dependence, unspecified, uncomplicated; Z88.6 Allergy status to analgesic agent; Z88.1 Allergy status to other antibiotic agents; Z88.8 Allergy status to other drugs, medicaments and biological substances; Z60.2 Problems related to living alone; Z98.890 Other specified postprocedural states; Z86.19 Personal history of other infectious and parasitic diseases
CPT/HCPCS: 36415; 70450-TC; 80048-TC; 80076-TC; 80305; 81000-TC; 85025-TC; A4606; G0480; Z7610

== ENCOUNTER 2018-02-09 04:12 | Emergency (ER) | payer OTHER ==
[~2018-02-09] VITALS: Ht 167.6 cm; Wt 72.6 kg
[2018-02-09 05:04] LABS: BASOPHILS # (AUTO) 0.1 /CMM (0.0-0.2); BASOPHILS % (AUTO) 0.8 % (0.0-2.0); EOSINOPHILS % (AUTO) 0.9 % (0.0-6.0); HEMATOCRIT 45 % (39-51); HEMOGLOBIN 15.3 g/dL (13.5-17.5); LYMPHOCYTES # (AUTO) 2.3 /CMM (0.8-4.8); LYMPHOCYTES % (AUTO) 23.9 % (20.0-44.0); MEAN CORPUSCULAR HGB CONC 34 g/dl (31.0-36.0); MEAN CORPUSCULAR VOLUME 88 fL (80-96); MONOCYTES # (AUTO) 1.1 /CMM (0.1-1.30); MONOCYTES % (AUTO) 10.9 % (2.0-12.0); NEUTROPHILS # (AUTO) 6.2 /CMM (1.8-8.9); NEUTROPHILS % (AUTO) 63.5 % (43.0-81.0); PLATELET COUNT (AUTO) 310 /CMM (150-450); RDW COEFFICIENT OF VARIATION 13.9 (11.5-15.0); RED BLOOD CELL COUNT(AUTO) 5.12 MIL/uL (4.5-6.0); WHITE BLOOD COUNT (AUTO) 9.8 K/uL (4.3-11.0)
[2018-02-09 05:12] LABS: APPEARANCE,URINE CLEAR (CLEAR); BILIRUBIN,URINE NEGATIVE (NEGATIVE); BLOOD, URINE NEGATIVE Ery/uL (NEGATIVE); COLOR,URINE YELLOW (YELLOW); KETONES,URINE NEGATIVE (NEGATIVE); LEUKOCYTE ESTERASE ,URINE NEGATIVE (NEGATIVE); NITRITE, URINE NEGATIVE (NEGATIVE); PROTEIN,URINE NEGATIVE (NEGATIVE); UGLUCOSE NEGATIVE (NEGATIVE); UROBILINOGEN,URINE 0.2 EU/dL (0.2)
[2018-02-09 05:13] LABS: CALCIUM, SERUM 9.1 mg/dL (8.5-10.1); CARBON DIOXIDE 25 mmol/L (21-32); CHLORIDE 101 mmol/L (98-107); GLUCOSE 106 mg/dL (74-106); SODIUM SERUM 138 mmol/L (136-145); UREA NITROGEN, BLOOD 16 mg/dL (7-18)
[2018-02-09 05:17] LABS: ALANINE AMINOTRANSFERASE 60 U/L (12-78); ALBUMIN 4.2 g/dL (3.4-5.0); ALCOHOL, BLOOD < 3 mg/dL (0-0); ALKALINE PHOSPHATASE 89 U/L (46-116); ASPARTATE AMINOTRANSFERASE 40 U/L (15-37); BILIRUBIN,DIRECT 0.2 mg/dL (0.0-0.2); BILIRUBIN,TOTAL 0.9 mg/dL (0.2-1.0); TOTAL PROTEIN, SERUM 8.2 g/dL (6.4-8.2)
[2018-02-09 05:18] LABS: ACETAMINOPHEN 0 ug/ml (10-30); SALICYLATE 2.5 mg/dL (2.8-20.0)
--- NOTE | 2018-02-09 05:33 | NUR ---
PT BIBSELF PT STATES "BEEN OFF OF MY SEROQUEL, XANAX AND PROZAC; NOW I FEEL SUICIDAL" PT AOX3 RR EVEN AND UNLABORED. NO SOB NOTED. NAD NOTED. NO NVD AT THIS TIME. PT WAITING FOR MD SHARP. URINE COLLECTED.
[2018-02-09] MEDS ORDERED: OLANZAPINE 5 MG TABLET ONE (06:58)
[2018-02-09] MEDS: OLANZAPINE 5 MG TABLET PO ONE (07:00)
--- NOTE | 2018-02-09 07:17 | NUR ---
RECEIVED REPORT FOR [facility].
--- NOTE | 2018-02-09 07:17 | NUR ---
REPORT GIVEN TO ALEIDA BUTCHER
--- NOTE | 2018-02-09 09:24 | NUR ---
[id number] PER TAMI ETA 30 MIN
--- NOTE | 2018-02-09 10:30 | NUR ---
REPORT GIVEN TO EMT AT BEDSIDE FOR TRANSFER TO [facility].
[2018-02-09 10:33] VITALS: BP 148/86
--- NOTE | 2018-02-09 10:34 | NUR ---
PATIENT TRANSFERRED TO [facility] VIA STRETCHER. DISCHARGE INSTRUCTIONS PROVIDED, PATIENT VERBALIZES UNDERSTANDING.
== END 2018-02-09 10:34 ==
LOC: ER 04:12
DX: R45.851 Suicidal ideations (principal); F19.10 Other psychoactive substance abuse, uncomplicated; F12.10 Cannabis abuse, uncomplicated; F15.10 Other stimulant abuse, uncomplicated; F32.9 Major depressive disorder, single episode, unspecified; F41.9 Anxiety disorder, unspecified; F20.9 Schizophrenia, unspecified; F20.0 Paranoid schizophrenia; F17.200 Nicotine dependence, unspecified, uncomplicated; Z60.2 Problems related to living alone; Z88.1 Allergy status to other antibiotic agents; Z88.6 Allergy status to analgesic agent; Z86.19 Personal history of other infectious and parasitic diseases; Z98.890 Other specified postprocedural states
CPT/HCPCS: 36415; 80048-TC; 80076-TC; 80305; 81000-TC; 85025-TC; A4606; G0480; Z7610

== ENCOUNTER 2018-04-04 22:32 | Emergency (ER) | payer OTHER ==
[~2018-04-04] VITALS: Ht 177.8 cm; Wt 95.3 kg
--- NOTE | 2018-04-04 22:32 | NUR ---
BB SELF; "I NEED MEDICAL CLEARANCE FOR [facility], I HAVENT TAKEN MY MEDICATIONS IN A WHILE". PT IS HYPERTENISVE BUT OTHERWISE VSS NO ACUTE DISTRESS NOTED AT THIS TIME. PT IS AMBULATORY AND ALERT/ORIENTED X4 ABLE TO MAKE NEEDS KNOWN. WILL CONTINUE TO MONITOR FOR ANY CHANEGHS DURING THE SHIFT.
--- NOTE | 2018-04-04 22:33 | NUR ---
ER MD HAIR AT BEDSIDE
--- NOTE | 2018-04-04 23:20 | NUR ---
CASUALTY UNDERWRITER AT BEDSIDE TO COLLECT BLOOD SAMPLES
[2018-04-04 23:48] LABS: BASOPHILS % (AUTO) 0.4 % (0.0-2.0); EOSINOPHILS % (AUTO) 3.6 % (0.0-6.0); HEMATOCRIT 41 % (39-51); HEMOGLOBIN 13.7 g/dL (13.5-17.5); LYMPHOCYTES # (AUTO) 3.1 /CMM (0.8-4.8); LYMPHOCYTES % (AUTO) 44.3 % (20.0-44.0); MEAN CORPUSCULAR HEMOGLOBIN 30 PG (26.0-33.0); MEAN CORPUSCULAR HGB CONC 34 g/dl (31.0-36.0); MEAN CORPUSCULAR VOLUME 91 fL (80-96); MONOCYTES # (AUTO) 0.7 /CMM (0.1-1.30); MONOCYTES % (AUTO) 10.7 % (2.0-12.0); NEUTROPHILS # (AUTO) 2.9 /CMM (1.8-8.9); PLATELET COUNT (AUTO) 286 /CMM (150-450); RDW COEFFICIENT OF VARIATION 13.8 (11.5-15.0); RED BLOOD CELL COUNT(AUTO) 4.49 MIL/uL (4.5-6.0)
[2018-04-04 23:52] LABS: APPEARANCE,URINE CLEAR (CLEAR); BILIRUBIN,URINE NEGATIVE (NEGATIVE); BLOOD, URINE NEGATIVE Ery/uL (NEGATIVE); COLOR,URINE YELLOW (YELLOW); KETONES,URINE NEGATIVE (NEGATIVE); LEUKOCYTE ESTERASE ,URINE NEGATIVE (NEGATIVE); NITRITE, URINE NEGATIVE (NEGATIVE); PH,URINE 5.5 (5.0-8.0); PROTEIN,URINE NEGATIVE (NEGATIVE); UGLUCOSE NEGATIVE (NEGATIVE); UROBILINOGEN,URINE 0.2 EU/dL (0.2)
[2018-04-05 00:01] LABS: CALCIUM, SERUM 7.9 mg/dL (8.5-10.1); CARBON DIOXIDE 23 mmol/L (21-32); CHLORIDE 102 mmol/L (98-107); CREATININE 0.9 mg/dL (0.6-1.3); GLUCOSE 84 mg/dL (74-106); POTASSIUM 3.5 mmol/L (3.5-5.1); SODIUM SERUM 133 mmol/L (136-145); UREA NITROGEN, BLOOD 9 mg/dL (7-18)
[2018-04-05 00:18] LABS: ALANINE AMINOTRANSFERASE 62 U/L (12-78); ALBUMIN 3.5 g/dL (3.4-5.0); ALKALINE PHOSPHATASE 91 U/L (46-116); ASPARTATE AMINOTRANSFERASE 32 U/L (15-37); BILIRUBIN,DIRECT 0.1 mg/dL (0.0-0.2); BILIRUBIN,TOTAL 0.4 mg/dL (0.2-1.0); TOTAL PROTEIN, SERUM 6.7 g/dL (6.4-8.2)
[2018-04-05 00:19] LABS: ACETAMINOPHEN 0 ug/ml (10-30); ALCOHOL, BLOOD < 3 mg/dL (0-0); SALICYLATE 2.6 mg/dL (2.8-20.0)
[2018-04-05] MEDS ORDERED: OLANZAPINE 5 MG TABLET ONE (01:27)
[2018-04-05] MEDS ORDERED: OLANZAPINE 5 MG TABLET PO ONE (01:30)
--- NOTE | 2018-04-05 02:01 | NUR ---
PT ACCEPTED BY DR DAVENPORT AT [facility]. # FOR REPORT [phone]
[2018-04-05 02:20] VITALS: BP 155/81
== END 2018-04-05 02:21 | disposition home or self-care (01) ==
LOC: ER 22:32
DX: Z04.6 Encounter for general psychiatric examination, requested by authority (principal); F20.9 Schizophrenia, unspecified; F22 Delusional disorders; F41.9 Anxiety disorder, unspecified; F32.9 Major depressive disorder, single episode, unspecified; F17.200 Nicotine dependence, unspecified, uncomplicated; F10.10 Alcohol abuse, uncomplicated; Y90.0 Blood alcohol level of less than 20 mg/100 ml; Z98.890 Other specified postprocedural states; Z88.1 Allergy status to other antibiotic agents; Z88.6 Allergy status to analgesic agent; Z60.2 Problems related to living alone; Z86.19 Personal history of other infectious and parasitic diseases
CPT/HCPCS: 36415; 80048; 80076; 80305; 80329; 81001; 85025; 99284; A4606; G0480 ×2; Z7610; 81000-TC

== ENCOUNTER 2018-04-15 14:48 | Emergency (ER) | payer OTHER ==
[~2018-04-15] VITALS: Ht 170.2 cm; Wt 95.3 kg
[2018-04-15 16:08] LABS: BASOPHILS # (AUTO) 0.1 /CMM (0.0-0.2); EOSINOPHILS % (AUTO) 3.5 % (0.0-6.0); HEMATOCRIT 41 % (39-51); LYMPHOCYTES # (AUTO) 2.4 /CMM (0.8-4.8); MEAN CORPUSCULAR HEMOGLOBIN 30 PG (26.0-33.0); MEAN CORPUSCULAR HGB CONC 34 g/dl (31.0-36.0); MEAN CORPUSCULAR VOLUME 88 fL (80-96); MONOCYTES # (AUTO) 0.8 /CMM (0.1-1.30); MONOCYTES % (AUTO) 10.7 % (2.0-12.0); NEUTROPHILS # (AUTO) 4.1 /CMM (1.8-8.9); NEUTROPHILS % (AUTO) 53.8 % (43.0-81.0); PLATELET COUNT (AUTO) 321 /CMM (150-450); RDW COEFFICIENT OF VARIATION 12.8 (11.5-15.0); RED BLOOD CELL COUNT(AUTO) 4.66 MIL/uL (4.5-6.0); WHITE BLOOD COUNT (AUTO) 7.7 K/uL (4.3-11.0)
[2018-04-15 16:18] LABS: APPEARANCE,URINE Clear (CLEAR); BILIRUBIN,URINE Negative (NEGATIVE); BLOOD, URINE Negative Ery/uL (NEGATIVE); CALCIUM, SERUM 8.9 mg/dL (8.5-10.1); CARBON DIOXIDE 31 mmol/L (21-32); CHLORIDE 100 mmol/L (98-107); COLOR,URINE Yellow (YELLOW); GLUCOSE 87 mg/dL (74-106); KETONES,URINE Negative (NEGATIVE); LEUKOCYTE ESTERASE ,URINE Negative (NEGATIVE); NITRITE, URINE Negative (NEGATIVE); PH,URINE 5.5 (5.0-8.0); POTASSIUM 3.9 mmol/L (3.5-5.1); PROTEIN,URINE Negative (NEGATIVE); SODIUM SERUM 135 mmol/L (136-145); UGLUCOSE 100 MG/DL mg/dL (NEGATIVE); UREA NITROGEN, BLOOD 15 mg/dL (7-18)
[2018-04-15 16:23] LABS: ALANINE AMINOTRANSFERASE 55 U/L (12-78); ALBUMIN 3.9 g/dL (3.4-5.0); ALCOHOL, BLOOD < 3 mg/dL (0-0); ALKALINE PHOSPHATASE 105 U/L (46-116); ASPARTATE AMINOTRANSFERASE 29 U/L (15-37); BILIRUBIN,DIRECT 0.1 mg/dL (0.0-0.2); BILIRUBIN,TOTAL 0.4 mg/dL (0.2-1.0); SALICYLATE 3.2 mg/dL (2.8-20.0); TOTAL PROTEIN, SERUM 7.7 g/dL (6.4-8.2)
[2018-04-15 16:24] LABS: ACETAMINOPHEN 0 ug/ml (10-30)
[2018-04-15 16:34] LABS: RBC,URINE NONE SEEN /HPF (0-2); WBC,URINE 0-2 /HPF (0-3)
[2018-04-15 16:35] LABS: BACTERIA,URINE Rare /HPF (None Seen); SQUAMOUS EPITHELIAL CELL,UR Rare /HPF (None Seen)
--- NOTE | 2018-04-15 17:30 | NUR ---
CLINICALS WERE FAXED TO [facility]
--- NOTE | 2018-04-15 17:50 | NUR ---
SERVED WITH FOOD TRAY
--- NOTE | 2018-04-15 18:10 | NUR ---
PATIENT NOT IN HIS BED BUT BELONGINGS ARE AT BEDSIDE
--- NOTE | 2018-04-15 19:03 | NUR ---
PATIENT WAS ACCEPTED TO [facility] PER MAURILIO - SET UP [facility] FOR TRANSPORT - TRIP# [id number] - AWAITING ETA FROM [facility]
--- NOTE | 2018-04-15 19:07 | NUR ---
NUMBER FOR REPORT EXT. [phone]
--- NOTE | 2018-04-15 19:25 | NUR ---
REPORT GIVEN KAMLESH.
[2018-04-15 20:08] VITALS: BP 127/72
--- NOTE | 2018-04-15 20:08 | NUR ---
REPORT GIVEN TO TRANSPORT PARAMEDICS GOMEZ.
== END 2018-04-15 20:11 ==
LOC: ER 14:49
DX: Z04.6 Encounter for general psychiatric examination, requested by authority (principal); R45.851 Suicidal ideations; F32.9 Major depressive disorder, single episode, unspecified; F41.9 Anxiety disorder, unspecified; F20.9 Schizophrenia, unspecified; F17.200 Nicotine dependence, unspecified, uncomplicated; F22 Delusional disorders; Z86.19 Personal history of other infectious and parasitic diseases; Z98.890 Other specified postprocedural states; Z88.6 Allergy status to analgesic agent; Z88.1 Allergy status to other antibiotic agents; Z60.2 Problems related to living alone
CPT/HCPCS: 36415; 80048; 80076; 80305; 80329; 81001; 85025; 99285; A4606; G0480 ×2; Z7610; 81000-TC

== ENCOUNTER 2018-05-07 16:54 | Emergency (ER) | payer OTHER ==
[~2018-05-07] VITALS: Ht 170.2 cm; Wt 90.7 kg
[2018-05-07 17:35] LABS: BASOPHILS % (AUTO) 0.6 % (0.0-2.0); HEMATOCRIT 40 % (39-51); HEMOGLOBIN 13.6 g/dL (13.5-17.5); LYMPHOCYTES # (AUTO) 2.4 /CMM (0.8-4.8); LYMPHOCYTES % (AUTO) 40.2 % (20.0-44.0); MEAN CORPUSCULAR HEMOGLOBIN 30 PG (26.0-33.0); MEAN CORPUSCULAR HGB CONC 34 g/dl (31.0-36.0); MEAN CORPUSCULAR VOLUME 89 fL (80-96); MONOCYTES # (AUTO) 0.6 /CMM (0.1-1.30); MONOCYTES % (AUTO) 10.7 % (2.0-12.0); NEUTROPHILS # (AUTO) 2.7 /CMM (1.8-8.9); NEUTROPHILS % (AUTO) 43.5 % (43.0-81.0); PLATELET COUNT (AUTO) 281 /CMM (150-450); RDW COEFFICIENT OF VARIATION 13.5 (11.5-15.0); RED BLOOD CELL COUNT(AUTO) 4.49 MIL/uL (4.5-6.0)
[2018-05-07 17:45] LABS: CALCIUM, SERUM 8.2 mg/dL (8.5-10.1); CARBON DIOXIDE 30 mmol/L (21-32); CHLORIDE 105 mmol/L (98-107); GLUCOSE 93 mg/dL (74-106); POTASSIUM 3.8 mmol/L (3.5-5.1); SODIUM SERUM 140 mmol/L (136-145); UREA NITROGEN, BLOOD 10 mg/dL (7-18)
[2018-05-07 17:51] LABS: ACETAMINOPHEN < 10 ug/ml (10-30); ALANINE AMINOTRANSFERASE 51 U/L (12-78); ALBUMIN 3.4 g/dL (3.4-5.0); ALCOHOL, BLOOD < 3 mg/dL (0-0); ALKALINE PHOSPHATASE 113 U/L (46-116); ASPARTATE AMINOTRANSFERASE 22 U/L (15-37); BILIRUBIN,DIRECT 0.1 mg/dL (0.0-0.2); BILIRUBIN,TOTAL 0.3 mg/dL (0.2-1.0); SALICYLATE 2.7 mg/dL (2.8-20.0); TOTAL PROTEIN, SERUM 6.5 g/dL (6.4-8.2)
[2018-05-07 18:06] LABS: APPEARANCE,URINE Clear (CLEAR); BILIRUBIN,URINE Negative (NEGATIVE); BLOOD, URINE Negative Ery/uL (NEGATIVE); COLOR,URINE Yellow (YELLOW); KETONES,URINE Negative (NEGATIVE); LEUKOCYTE ESTERASE ,URINE Negative (NEGATIVE); NITRITE, URINE Negative (NEGATIVE); PH,URINE 5.5 (5.0-8.0); PROTEIN,URINE Negative (NEGATIVE); UGLUCOSE Negative (NEGATIVE); UROBILINOGEN,URINE 0.2 EU/dL (0.2)
--- NOTE | 2018-05-07 19:07 | NUR ---
ENDORSED BY PREVIOUS RN WILLIAM. Patient is resting comfortably in bed with eyes closed. Easily aroused. VSS. STABLE CONDITION.
--- NOTE | 2018-05-07 20:35 | NUR ---
RN CRISIS RECEPTION AT BEDSIDE.
--- NOTE | 2018-05-07 21:27 | NUR ---
PT CONTINUES TO REST COMFORTABLY IN BED. AWAKEN, AA/OX4, VSS. NAD. WILL CONTINUE TO MONITOR.
--- NOTE | 2018-05-08 01:21 | NUR ---
PT ACCEPTED TO [facility] BY DR. MARTINEZ. RN TO RN REPORT CALL [phone] EXT [phone].
--- NOTE | 2018-05-08 01:27 | NUR ---
[facility] ETA [phone]
--- NOTE | 2018-05-08 02:39 | NUR ---
REPORT GIVEN TO [facility]. PT TRANSPORTED WITH STABLE CONDITION. RACHEAL. SILKE.
[2018-05-08 02:40] VITALS: BP 109/78
== END 2018-05-08 02:42 ==
LOC: ER 16:57
DX: R44.0 Auditory hallucinations (principal); F22 Delusional disorders; F41.9 Anxiety disorder, unspecified; F20.9 Schizophrenia, unspecified; F32.9 Major depressive disorder, single episode, unspecified; F17.200 Nicotine dependence, unspecified, uncomplicated; Z86.19 Personal history of other infectious and parasitic diseases; Z98.890 Other specified postprocedural states; Z88.6 Allergy status to analgesic agent; Z88.1 Allergy status to other antibiotic agents; Z60.2 Problems related to living alone
CPT/HCPCS: 36415; 80048; 80076; 80305; 80329; 81001; 85025; 99285; A4606; G0480 ×2; Z7610; 81000-TC

== ENCOUNTER 2018-08-27 18:06 | Emergency (ER) | payer OTHER ==
[~2018-08-27] VITALS: Ht 170.2 cm; Wt 104.3 kg
--- NOTE | 2018-08-27 18:29 | NUR ---
PT WALKED INTO EMERGENCY ROOM WITH BACK AJITH AND SOCKS WITH C/C OF SUICIDAL IDEALTION WITH OUT A PLANA PT DRESSED DISCHEIVABLE ALSO PT CARRING SHOES. WILL CONTINUE TO MONITOR
[2018-08-27 19:18] LABS: BASOPHILS # (AUTO) 0.1 /CMM (0.0-0.2); BASOPHILS % (AUTO) 0.7 % (0.0-2.0); EOSINOPHILS % (AUTO) 3.1 % (0.0-6.0); HEMATOCRIT 44 % (39-51); HEMOGLOBIN 14.6 g/dL (13.5-17.5); LYMPHOCYTES # (AUTO) 2.3 /CMM (0.8-4.8); MEAN CORPUSCULAR HGB CONC 34 g/dl (31.0-36.0); MEAN CORPUSCULAR VOLUME 91 fL (80-96); MONOCYTES # (AUTO) 0.9 /CMM (0.1-1.30); NEUTROPHILS # (AUTO) 4.3 /CMM (1.8-8.9); NEUTROPHILS % (AUTO) 55.2 % (43.0-81.0); PLATELET COUNT (AUTO) 279 /CMM (150-450); RED BLOOD CELL COUNT(AUTO) 4.78 MIL/uL (4.5-6.0); WHITE BLOOD COUNT (AUTO) 7.8 K/uL (4.3-11.0)
--- NOTE | 2018-08-27 19:22 | NUR ---
AMBULATED TO BATHROOM WITH STABLE GAIT. NAD. VSS. WILL CONTINUE TO MONITOR.
--- NOTE | 2018-08-27 19:26 | NUR ---
PT MEDICALLY CLEARED TO BE DISCHARGED BY [facility] FLOOR LAYER TILEMessi SPRINGER. Addendum: 08/27/18 at 1927 by SHEREEN STABLE CONDITION.
[2018-08-27 19:29] LABS: CALCIUM, SERUM 8.7 mg/dL (8.5-10.1); CARBON DIOXIDE 28 mmol/L (21-32); CHLORIDE 101 mmol/L (98-107); CREATININE 1.1 mg/dL (0.6-1.3); GLUCOSE 71 mg/dL (74-106); POTASSIUM 3.4 mmol/L (3.5-5.1); SODIUM SERUM 138 mmol/L (136-145); UREA NITROGEN, BLOOD 14 mg/dL (7-18)
--- NOTE | 2018-08-27 19:42 | NUR ---
Patient discharged to home in stable condition. Written and verbal after care instructions given. Patient verbalizes understanding of instruction. AMBULATED WITH STABLE GAIT. SILKE. RACHEAL.
[2018-08-27 19:44] VITALS: BP 114/82
[2018-08-27 19:47] LABS: ALANINE AMINOTRANSFERASE 91 U/L (12-78); ALBUMIN 3.8 g/dL (3.4-5.0); ALCOHOL, BLOOD < 3 mg/dL (0-0); ALKALINE PHOSPHATASE 75 U/L (46-116); ASPARTATE AMINOTRANSFERASE 50 U/L (15-37); BILIRUBIN,DIRECT 0.2 mg/dL (0.0-0.2); BILIRUBIN,TOTAL 0.8 mg/dL (0.2-1.0); TOTAL PROTEIN, SERUM 7.4 g/dL (6.4-8.2)
[2018-08-27 19:48] LABS: ACETAMINOPHEN < 10 ug/ml (10-30); SALICYLATE 2.6 mg/dL (2.8-20.0)
== END 2018-08-27 19:46 | disposition home or self-care (01) ==
LOC: ER 18:11
DX: F32.9 Major depressive disorder, single episode, unspecified (principal); F22 Delusional disorders; F20.9 Schizophrenia, unspecified; F41.9 Anxiety disorder, unspecified; F17.200 Nicotine dependence, unspecified, uncomplicated; Z86.19 Personal history of other infectious and parasitic diseases; Z98.890 Other specified postprocedural states; Z88.1 Allergy status to other antibiotic agents; Z88.6 Allergy status to analgesic agent
CPT/HCPCS: 36415; 80048-TC; 80076-TC; 85025-TC; A4606; G0480; Z7610

== ENCOUNTER 2018-09-06 09:42 | Emergency (ER) | payer OTHER ==
[~2018-09-06] VITALS: Ht 170.2 cm; Wt 90.7 kg
--- NOTE | 2018-09-06 09:55 | NUR ---
AMBULATORY TO ROOM - NO DISTRESS - NOW C/O SI BUT NO PLAN SEEN AND EVAL BY ED MD.
[2018-09-06] MEDS ORDERED: LORAZEPAM 1 MG TABLET PO ONE (10:00)
[2018-09-06] MEDS ORDERED: OLANZAPINE 5 MG/TAB.RAPDIS PO ONE (10:00)
[2018-09-06] MEDS ORDERED: OLANZAPINE 5 MG TABLET ONE (10:03)
[2018-09-06] MEDS ORDERED: LORAZEPAM 1 MG TABLET ONE (10:04)
--- NOTE | 2018-09-06 10:07 | NUR ---
MEDS GIVEN PO ORDERED
[2018-09-06 10:23] LABS: BASOPHILS % (AUTO) 0.5 % (0.0-2.0); EOSINOPHILS % (AUTO) 3.5 % (0.0-6.0); HEMATOCRIT 41 % (39-51); LYMPHOCYTES # (AUTO) 2.3 /CMM (0.8-4.8); LYMPHOCYTES % (AUTO) 33.5 % (20.0-44.0); MEAN CORPUSCULAR HGB CONC 34 g/dl (31.0-36.0); MEAN CORPUSCULAR VOLUME 91 fL (80-96); MONOCYTES # (AUTO) 0.8 /CMM (0.1-1.30); MONOCYTES % (AUTO) 11.9 % (2.0-12.0); NEUTROPHILS # (AUTO) 3.5 /CMM (1.8-8.9); NEUTROPHILS % (AUTO) 50.6 % (43.0-81.0); PLATELET COUNT (AUTO) 251 /CMM (150-450); RED BLOOD CELL COUNT(AUTO) 4.54 MIL/uL (4.5-6.0)
[2018-09-06 10:33] LABS: CARBON DIOXIDE 27 mmol/L (21-32); CHLORIDE 102 mmol/L (98-107); CREATININE 0.8 mg/dL (0.6-1.3); GLUCOSE 87 mg/dL (74-106); POTASSIUM 3.3 mmol/L (3.5-5.1); SODIUM SERUM 137 mmol/L (136-145); UREA NITROGEN, BLOOD 11 mg/dL (7-18)
[2018-09-06 10:35] LABS: ALCOHOL, BLOOD < 3 mg/dL (0-0)
--- NOTE | 2018-09-06 11:04 | NUR ---
URINE COLLECTED AND SENT TO LAB. PT AMBULATED TO BATHROOM WITH STEADY GAIT
--- NOTE | 2018-09-06 16:19 | NUR ---
SINGH ANTHONY; DR. MARTINEZ; [facility]
[2018-09-06 16:21] VITALS: BP 130/90
--- NOTE | 2018-09-06 16:42 | NUR ---
REPORT GIVEN TO DAISY FROM [facility] FOR [facility]
--- NOTE | 2018-09-06 16:45 | NUR ---
CALLED [facility] FOR BLS TRIP #[id number] SPOKE WITH SINDHU. ETA 1800
--- NOTE | 2018-09-06 18:34 | NUR ---
PT TRANSPORTED TO [facility]IA [facility] VIA GURNEY WITH 2EMT'S; PT LEFT IN STABLE CONDITION
== END 2018-09-06 18:37 ==
LOC: ER 09:45
DX: F29 Unspecified psychosis not due to a substance or known physiological condition (principal); F15.10 Other stimulant abuse, uncomplicated; R45.851 Suicidal ideations; F32.9 Major depressive disorder, single episode, unspecified; F10.10 Alcohol abuse, uncomplicated; F17.200 Nicotine dependence, unspecified, uncomplicated; Y90.0 Blood alcohol level of less than 20 mg/100 ml; Z86.19 Personal history of other infectious and parasitic diseases; Z98.890 Other specified postprocedural states; Z88.1 Allergy status to other antibiotic agents; Z88.6 Allergy status to analgesic agent
CPT/HCPCS: 36415; 80048-TC; 80305; 85025-TC; G0480

== ENCOUNTER 2018-09-26 06:48 | Emergency (ER) | payer OTHER ==
[~2018-09-26] VITALS: Ht 170.2 cm; Wt 104.3 kg
--- NOTE | 2018-09-26 07:10 | NUR ---
PT BIBSELF C/O "HEARING VOICES" TELLING HIM TO HURT HIMSELF.+SI/+HI. ALERT AND ORIENTED X 3. ON ROOM AIR, BREATHING EVENLY AND UNLABORED. KEPT COMFROTABLE. WILL CONTINUE TO MONITOR ACCORDINGLY. AWAITING FOR MD FOR EVAL.
--- NOTE | 2018-09-26 07:18 | NUR ---
DR. MORRIS AT BEDSIDE FOR EVAL.
[2018-09-26 07:40] LABS: BASOPHILS # (AUTO) 0.1 /CMM (0.0-0.2); BASOPHILS % (AUTO) 0.7 % (0.0-2.0); EOSINOPHILS % (AUTO) 3.5 % (0.0-6.0); HEMATOCRIT 40 % (39-51); HEMOGLOBIN 13.4 g/dL (13.5-17.5); LYMPHOCYTES # (AUTO) 2.2 /CMM (0.8-4.8); LYMPHOCYTES % (AUTO) 26.1 % (20.0-44.0); MEAN CORPUSCULAR HGB CONC 34 g/dl (31.0-36.0); MEAN CORPUSCULAR VOLUME 90 fL (80-96); MONOCYTES # (AUTO) 0.7 /CMM (0.1-1.30); MONOCYTES % (AUTO) 8.7 % (2.0-12.0); NEUTROPHILS # (AUTO) 5.2 /CMM (1.8-8.9); PLATELET COUNT (AUTO) 265 /CMM (150-450); RED BLOOD CELL COUNT(AUTO) 4.41 MIL/uL (4.5-6.0); WHITE BLOOD COUNT (AUTO) 8.5 K/uL (4.3-11.0)
[2018-09-26 07:49] LABS: CALCIUM, SERUM 8.3 mg/dL (8.5-10.1); CARBON DIOXIDE 26 mmol/L (21-32); CHLORIDE 106 mmol/L (98-107); GLUCOSE 122 mg/dL (74-106); POTASSIUM 3.1 mmol/L (3.5-5.1); SODIUM SERUM 142 mmol/L (136-145); UREA NITROGEN, BLOOD 10 mg/dL (7-18)
[2018-09-26 07:56] LABS: ACETAMINOPHEN < 10 ug/ml (10-30); ALANINE AMINOTRANSFERASE 65 U/L (12-78); ALBUMIN 3.4 g/dL (3.4-5.0); ALCOHOL, BLOOD < 3 mg/dL (0-0); ALKALINE PHOSPHATASE 80 U/L (46-116); ASPARTATE AMINOTRANSFERASE 28 U/L (15-37); BILIRUBIN,DIRECT 0.1 mg/dL (0.0-0.2); BILIRUBIN,TOTAL 0.5 mg/dL (0.2-1.0); SALICYLATE 1.7 mg/dL (2.8-20.0); TOTAL PROTEIN, SERUM 6.8 g/dL (6.4-8.2)
[2018-09-26] MEDS ORDERED: POTASSIUM CHLORIDE 20 MEQ TAB.PRT.SR PO ONE ×2 (08:00→08:05)
--- NOTE | 2018-09-26 08:00 | NUR ---
Pt complains of suicidal ideation and plans to run into traffic
[2018-09-26 08:05] LABS: APPEARANCE,URINE CLEAR (CLEAR); BILIRUBIN,URINE 1+ (NEGATIVE); BLOOD, URINE NEGATIVE Ery/uL (NEGATIVE); KETONES,URINE TRACE (NEGATIVE); LEUKOCYTE ESTERASE ,URINE NEGATIVE (NEGATIVE); NITRITE, URINE NEGATIVE (NEGATIVE); PROTEIN,URINE NEGATIVE (NEGATIVE); UGLUCOSE NEGATIVE (NEGATIVE)
[2018-09-26 08:06] LABS: COLOR,URINE DARK YELLOW (YELLOW)
--- NOTE | 2018-09-26 08:28 | NUR ---
Dee Randhawa LCSW for psychiatric admission. Addendum: 09/26/18 at 0829 by RBATACLAN Dee Randhawa LCSW for psychiatric workup
--- NOTE | 2018-09-26 09:45 | NUR ---
TRACY AT BEDSIDE FOR EVAL.
--- NOTE | 2018-09-26 11:13 | NUR ---
Received a call from [facility] and was told that this patient has been accepted under Dr Roberts. Number for report is [phone] ext [phone].
--- NOTE | 2018-09-26 11:23 | NUR ---
Alex [facility]IMMER[facility] transport ETA of 1200 Trip#: [id number]
[2018-09-26 12:10] VITALS: BP 128/78
--- NOTE | 2018-09-26 12:14 | NUR ---
AMBULANCE CAME AND PICKED UP THE PATIENT GOING TO [facility], IN NO APPARENT DISTRESS NOTED.
== END 2018-09-26 12:14 ==
LOC: ER 06:48
DX: F32.9 Major depressive disorder, single episode, unspecified (principal); F20.9 Schizophrenia, unspecified; F98.8 Other specified behavioral and emotional disorders with onset usually occurring in childhood and adolescence; F17.200 Nicotine dependence, unspecified, uncomplicated; Z86.19 Personal history of other infectious and parasitic diseases; Z98.890 Other specified postprocedural states; Z88.6 Allergy status to analgesic agent; Z88.1 Allergy status to other antibiotic agents
CPT/HCPCS: 36415; 80048; 80076; 80305; 80329; 81001; 85025; 99285; A4606; G0480 ×2; Z7610; 81000-TC

== ENCOUNTER 2018-11-05 17:36 | Emergency (ER) | payer OTHER ==
[~2018-11-05] VITALS: Ht 167.6 cm; Wt 74.8 kg
[2018-11-05 18:09] LABS: BASOPHILS % (AUTO) 0.3 % (0.0-2.0); EOSINOPHILS % (AUTO) 1.1 % (0.0-6.0); HEMATOCRIT 47 % (39-51); HEMOGLOBIN 15.7 g/dL (13.5-17.5); LYMPHOCYTES # (AUTO) 1.4 /CMM (0.8-4.8); LYMPHOCYTES % (AUTO) 16.5 % (20.0-44.0); MEAN CORPUSCULAR HGB CONC 33 g/dl (31.0-36.0); MEAN CORPUSCULAR VOLUME 90 fL (80-96); MONOCYTES # (AUTO) 0.8 /CMM (0.1-1.30); MONOCYTES % (AUTO) 9.3 % (2.0-12.0); NEUTROPHILS # (AUTO) 6.4 /CMM (1.8-8.9); NEUTROPHILS % (AUTO) 72.8 % (43.0-81.0); PLATELET COUNT (AUTO) 313 /CMM (150-450); RED BLOOD CELL COUNT(AUTO) 5.23 MIL/uL (4.5-6.0); WHITE BLOOD COUNT (AUTO) 8.8 K/uL (4.3-11.0)
[2018-11-05 18:18] LABS: CALCIUM, SERUM 9.2 mg/dL (8.5-10.1); CARBON DIOXIDE 30 mmol/L (21-32); CHLORIDE 102 mmol/L (98-107); CREATININE 0.9 mg/dL (0.6-1.3); GLUCOSE 93 mg/dL (74-106); POTASSIUM 3.2 mmol/L (3.5-5.1); SODIUM SERUM 140 mmol/L (136-145); UREA NITROGEN, BLOOD 15 mg/dL (7-18)
[2018-11-05 18:24] LABS: ALANINE AMINOTRANSFERASE 85 U/L (12-78); ALBUMIN 4.3 g/dL (3.4-5.0); ALCOHOL, BLOOD < 3 mg/dL (0-0); ALKALINE PHOSPHATASE 110 U/L (46-116); ASPARTATE AMINOTRANSFERASE 50 U/L (15-37); BILIRUBIN,DIRECT 0.2 mg/dL (0.0-0.2); BILIRUBIN,TOTAL 0.7 mg/dL (0.2-1.0); TOTAL PROTEIN, SERUM 8.2 g/dL (6.4-8.2)
[2018-11-05 18:27] LABS: ACETAMINOPHEN 0 ug/ml (10-30); SALICYLATE 2.3 mg/dL (2.8-20.0)
[2018-11-05] MEDS ORDERED: POTASSIUM CHLORIDE 20 MEQ TAB.PRT.SR PO ONE ×2 (19:00→19:21)
--- NOTE | 2018-11-05 19:00 | NUR ---
ASSUMED FOR THIS PT, PT CAME IN FOR S/I S/P SMOKING METH; PT ON MONITOR, SI PRECAUTIONS STARTED FOR SAFERTY, VSS, NAD NOTED.
--- NOTE | 2018-11-05 19:17 | NUR ---
CALLED [facility] REGARDING PSYCH EVAL FOR THIS PATIENT STATES ETA 1 HOUR
[2018-11-05 20:14] LABS: APPEARANCE,URINE Clear (CLEAR); BILIRUBIN,URINE Negative (NEGATIVE); BLOOD, URINE Negative Ery/uL (NEGATIVE); COLOR,URINE Yellow (YELLOW); KETONES,URINE 40 (NEGATIVE); LEUKOCYTE ESTERASE ,URINE Negative (NEGATIVE); NITRITE, URINE Negative (NEGATIVE); PROTEIN,URINE 30 mg/dl (NEGATIVE); UGLUCOSE Negative (NEGATIVE); UROBILINOGEN,URINE 0.2 EU/dL (0.2)
--- NOTE | 2018-11-05 20:20 | NUR ---
ALEIDA ARREOLA AT BEDSIDE FOR PSYC EVAL.
--- NOTE | 2018-11-05 20:35 | NUR ---
PER ALEIDA ARREOLA PATIENT INFO FAXED TO [facility] FOR REVIEW.
[2018-11-05 20:56] LABS: BACTERIA,URINE None seen /HPF (None Seen); RBC,URINE 0-2 /HPF (0-2); SQUAMOUS EPITHELIAL CELL,UR Few /HPF (None Seen); WBC,URINE 0-2 /HPF (0-3)
--- NOTE | 2018-11-05 20:59 | NUR ---
[facility] RN FOR REPORT [phone]
--- NOTE | 2018-11-05 21:23 | NUR ---
[facility] TRIP NUMBER [id number]
--- NOTE | 2018-11-05 21:27 | NUR ---
GAVE REPORT TO SHELBY SHIN FROM [facility] FOR [facility]
--- NOTE | 2018-11-05 21:30 | NUR ---
PROVIDED W SANDWICH AND WATER, TOLERATING PO WELL
--- NOTE | 2018-11-05 21:54 | NUR ---
PT HYPERTENSIVE, MD AWARE
[2018-11-05] MEDS ORDERED: CLONIDINE HCL 0.1 MG TABLET ONE (22:20)
[2018-11-05] MEDS ORDERED: CLONIDINE HCL 0.1 MG TABLET PO ONE (22:30)
[2018-11-05 22:43] VITALS: BP 154/95
--- NOTE | 2018-11-05 22:54 | NUR ---
REPORT GIVEN TO [facility] FOR TRANSPORT.
--- NOTE | 2018-11-05 23:03 | NUR ---
PT LEFT IN STABLE CONDTION VIA [facility]; GIVEN PPW TO AMBULANCE STAFF.
== END 2018-11-05 23:04 ==
LOC: ER 17:38
DX: R45.851 Suicidal ideations (principal); F32.9 Major depressive disorder, single episode, unspecified; F20.9 Schizophrenia, unspecified; F10.10 Alcohol abuse, uncomplicated; F17.200 Nicotine dependence, unspecified, uncomplicated; F15.10 Other stimulant abuse, uncomplicated; Y90.0 Blood alcohol level of less than 20 mg/100 ml; Z86.19 Personal history of other infectious and parasitic diseases; Z98.890 Other specified postprocedural states; Z88.1 Allergy status to other antibiotic agents; Z88.6 Allergy status to analgesic agent
CPT/HCPCS: 36415; 80048; 80076; 80305; 80307; 80329; 81001; 85025; 99285; A4606; G0480; 81000-TC

== ENCOUNTER 2018-11-21 19:42 | Emergency (ER) | payer OTHER ==
[~2018-11-21] VITALS: Ht 170.2 cm; Wt 99.8 kg
[2018-11-21 20:11] LABS: BASOPHILS # (AUTO) 0.1 /CMM (0.0-0.2); BASOPHILS % (AUTO) 0.9 % (0.0-2.0); EOSINOPHILS % (AUTO) 3.4 % (0.0-6.0); HEMATOCRIT 44 % (39-51); LYMPHOCYTES # (AUTO) 2.9 /CMM (0.8-4.8); LYMPHOCYTES % (AUTO) 29.9 % (20.0-44.0); MEAN CORPUSCULAR HGB CONC 34 g/dl (31.0-36.0); MEAN CORPUSCULAR VOLUME 90 fL (80-96); MONOCYTES # (AUTO) 1.1 /CMM (0.1-1.30); MONOCYTES % (AUTO) 11.2 % (2.0-12.0); NEUTROPHILS # (AUTO) 5.2 /CMM (1.8-8.9); NEUTROPHILS % (AUTO) 54.6 % (43.0-81.0); PLATELET COUNT (AUTO) 261 /CMM (150-450); RED BLOOD CELL COUNT(AUTO) 4.92 MIL/uL (4.5-6.0); WHITE BLOOD COUNT (AUTO) 9.6 K/uL (4.3-11.0)
[2018-11-21 20:13] LABS: APPEARANCE,URINE Clear (CLEAR); BILIRUBIN,URINE Negative (NEGATIVE); BLOOD, URINE Negative Ery/uL (NEGATIVE); COLOR,URINE Yellow (YELLOW); KETONES,URINE Negative (NEGATIVE); LEUKOCYTE ESTERASE ,URINE Negative (NEGATIVE); NITRITE, URINE Negative (NEGATIVE); PH,URINE 5.5 (5.0-8.0); PROTEIN,URINE Negative (NEGATIVE); UGLUCOSE Negative (NEGATIVE); UROBILINOGEN,URINE 0.2 EU/dL (0.2)
[2018-11-21 20:18] LABS: CALCIUM, SERUM 9.2 mg/dL (8.5-10.1); CARBON DIOXIDE 26 mmol/L (21-32); CHLORIDE 101 mmol/L (98-107); CREATININE 1.1 mg/dL (0.6-1.3); GLUCOSE 109 mg/dL (74-106); POTASSIUM 4.1 mmol/L (3.5-5.1); SODIUM SERUM 137 mmol/L (136-145); UREA NITROGEN, BLOOD 22 mg/dL (7-18)
[2018-11-21 20:32] LABS: ALANINE AMINOTRANSFERASE 63 U/L (12-78); ALBUMIN 3.9 g/dL (3.4-5.0); ALCOHOL, BLOOD < 3 mg/dL (0-0); ALKALINE PHOSPHATASE 134 U/L (46-116); ASPARTATE AMINOTRANSFERASE 32 U/L (15-37); BILIRUBIN,TOTAL 0.2 mg/dL (0.2-1.0); SALICYLATE 3.1 mg/dL (2.8-20.0); TOTAL PROTEIN, SERUM 7.7 g/dL (6.4-8.2)
[2018-11-21 20:33] LABS: ACETAMINOPHEN 0 ug/ml (10-30)
--- NOTE | 2018-11-21 20:48 | NUR ---
SPOKE TO VB NET DEVELOPER CLINICIAN TO COME IN AND DO A PSYCH EVAL
--- NOTE | 2018-11-21 21:28 | NUR ---
PINKY CRISIS INSIDE PARTS SALES AT BEDSIDE
--- NOTE | 2018-11-21 21:34 | NUR ---
PT OK TO DISCHARGE PER LISA LIAISON OFFICER. Patient discharged to home in stable condition. Written and verbal after care instructions given. Patient verbalizes understanding of instruction.Patient is awake and alert to self, day, and place. PT ambulatory with a steady gait
[2018-11-22 01:50] VITALS: BP 152/93
== END 2018-11-22 01:50 | disposition home or self-care (01) ==
LOC: ER 19:47
DX: R44.0 Auditory hallucinations (principal); F60.0 Paranoid personality disorder; F32.9 Major depressive disorder, single episode, unspecified; F17.200 Nicotine dependence, unspecified, uncomplicated; F98.8 Other specified behavioral and emotional disorders with onset usually occurring in childhood and adolescence; Z86.19 Personal history of other infectious and parasitic diseases; Z98.890 Other specified postprocedural states; Z88.1 Allergy status to other antibiotic agents; Z88.6 Allergy status to analgesic agent
CPT/HCPCS: 36415; 80048; 80076; 80305; 80307; 80329; 81001; 85025; 99284; A4606; G0480; 81000-TC

== ENCOUNTER 2018-12-21 14:19 | Emergency (ER) | payer OTHER ==
--- NOTE | 2018-12-21 15:22 | NUR ---
CALLED FOR TRIAGE NOT IN THE WAITING ROOM
--- NOTE | 2018-12-21 15:51 | NUR ---
CALLED FOR TRIAGE NOT IN THE WAITING ROOM
--- NOTE | 2018-12-21 16:01 | NUR ---
CALLED FOR TRIAGE NOT IN THE WAITING ROOM
== END 2018-12-21 16:03 | disposition left against medical advice (07) ==
LOC: ER 14:19
DX: Z53.21 Procedure and treatment not carried out due to patient leaving prior to being seen by health care provider (principal)

== ENCOUNTER 2018-12-21 23:38 | Emergency (ER) | payer OTHER ==
[~2018-12-21] VITALS: Ht 177.8 cm; Wt 95.3 kg
[2018-12-22 00:49] LABS: APPEARANCE,URINE Clear (CLEAR); BILIRUBIN,URINE Negative (NEGATIVE); BLOOD, URINE Trace-intact Ery/uL (NEGATIVE); COLOR,URINE Yellow (YELLOW); KETONES,URINE Negative (NEGATIVE); LEUKOCYTE ESTERASE ,URINE Negative (NEGATIVE); NITRITE, URINE Negative (NEGATIVE); PH,URINE 5.5 (5.0-8.0); PROTEIN,URINE Negative (NEGATIVE); UGLUCOSE Negative (NEGATIVE)
[2018-12-22 00:54] LABS: BASOPHILS % (AUTO) 0.5 % (0.0-2.0); EOSINOPHILS % (AUTO) 1.4 % (0.0-6.0); HEMATOCRIT 43 % (39-51); HEMOGLOBIN 14.8 g/dL (13.5-17.5); LYMPHOCYTES # (AUTO) 2.1 /CMM (0.8-4.8); LYMPHOCYTES % (AUTO) 23.4 % (20.0-44.0); MEAN CORPUSCULAR HGB CONC 34 g/dl (31.0-36.0); MEAN CORPUSCULAR VOLUME 90 fL (80-96); MONOCYTES # (AUTO) 1.2 /CMM (0.1-1.30); MONOCYTES % (AUTO) 13.9 % (2.0-12.0); NEUTROPHILS # (AUTO) 5.4 /CMM (1.8-8.9); NEUTROPHILS % (AUTO) 60.8 % (43.0-81.0); PLATELET COUNT (AUTO) 280 /CMM (150-450); WHITE BLOOD COUNT (AUTO) 8.9 K/uL (4.3-11.0)
[2018-12-22 01:01] LABS: CALCIUM, SERUM 8.5 mg/dL (8.5-10.1); CARBON DIOXIDE 26 mmol/L (21-32); CHLORIDE 102 mmol/L (98-107); GLUCOSE 104 mg/dL (74-106); POTASSIUM 3.7 mmol/L (3.5-5.1); SODIUM SERUM 136 mmol/L (136-145); UREA NITROGEN, BLOOD 19 mg/dL (7-18)
[2018-12-22 01:10] LABS: BACTERIA,URINE Rare /HPF (None Seen); SQUAMOUS EPITHELIAL CELL,UR Rare /HPF (None Seen); WBC,URINE 0-2 /HPF (0-3)
[2018-12-22 01:11] LABS: ALANINE AMINOTRANSFERASE 90 U/L (12-78); ALBUMIN 4.1 g/dL (3.4-5.0); ALKALINE PHOSPHATASE 108 U/L (46-116); ASPARTATE AMINOTRANSFERASE 37 U/L (15-37); BILIRUBIN,DIRECT 0.1 mg/dL (0.0-0.2); BILIRUBIN,TOTAL 0.5 mg/dL (0.2-1.0); TOTAL PROTEIN, SERUM 7.7 g/dL (6.4-8.2)
[2018-12-22 01:12] LABS: ACETAMINOPHEN 0 ug/ml (10-30); ALCOHOL, BLOOD < 3 mg/dL (0-0)
--- NOTE | 2018-12-22 03:58 | NUR ---
CALLED [facility] FOR TRANSPORT ETA OF 4193 WAS GIVEN. TRIP#[id number]
--- NOTE | 2018-12-22 04:01 | NUR ---
pt accepted to [facility] by dr gottlieb. # for report [phone]
--- NOTE | 2018-12-22 04:13 | NUR ---
Report given to Ja SHIN for conitnuation of care.
--- NOTE | 2018-12-22 04:24 | NUR ---
prashanth at bedside for transport.
[2018-12-22 04:37] VITALS: BP 152/80
== END 2018-12-22 04:30 ==
LOC: ER 23:43
DX: F32.9 Major depressive disorder, single episode, unspecified (principal); F20.9 Schizophrenia, unspecified; F98.8 Other specified behavioral and emotional disorders with onset usually occurring in childhood and adolescence; F17.200 Nicotine dependence, unspecified, uncomplicated; Z86.19 Personal history of other infectious and parasitic diseases; Z98.890 Other specified postprocedural states; Z88.6 Allergy status to analgesic agent; Z88.1 Allergy status to other antibiotic agents
CPT/HCPCS: 36415; 71045; 80048; 80076; 80305; 80307; 80329; 81001; 85025; 99285; G0480; 81000-TC

== ENCOUNTER 2019-01-07 15:48 | Emergency (ER) | payer OTHER, MEDICAID ==
[~2019-01-07] VITALS: Ht 167.6 cm; Wt 95.3 kg
[2019-01-07 17:36] VITALS: BP 155/88
[2019-01-07 18:10] LABS: BASOPHILS % (AUTO) 0.6 % (0.0-2.0); EOSINOPHILS % (AUTO) 2.6 % (0.0-6.0); HEMATOCRIT 43 % (39-51); HEMOGLOBIN 14.4 g/dL (13.5-17.5); LYMPHOCYTES # (AUTO) 2.2 /CMM (0.8-4.8); LYMPHOCYTES % (AUTO) 29.6 % (20.0-44.0); MEAN CORPUSCULAR HGB CONC 34 g/dl (31.0-36.0); MEAN CORPUSCULAR VOLUME 90 fL (80-96); MONOCYTES % (AUTO) 12.9 % (2.0-12.0); NEUTROPHILS # (AUTO) 4.1 /CMM (1.8-8.9); NEUTROPHILS % (AUTO) 54.3 % (43.0-81.0); PLATELET COUNT (AUTO) 277 /CMM (150-450); RED BLOOD CELL COUNT(AUTO) 4.72 MIL/uL (4.5-6.0); WHITE BLOOD COUNT (AUTO) 7.6 K/uL (4.3-11.0)
[2019-01-07 18:17] LABS: CALCIUM, SERUM 8.6 mg/dL (8.5-10.1); CARBON DIOXIDE 30 mmol/L (21-32); CHLORIDE 102 mmol/L (98-107); CREATININE 0.9 mg/dL (0.6-1.3); GLUCOSE 87 mg/dL (74-106); POTASSIUM 3.9 mmol/L (3.5-5.1); SODIUM SERUM 137 mmol/L (136-145); UREA NITROGEN, BLOOD 17 mg/dL (7-18)
[2019-01-07 18:23] LABS: ACETAMINOPHEN < 2 ug/ml (10-30); ALANINE AMINOTRANSFERASE 65 U/L (12-78); ALBUMIN 3.9 g/dL (3.4-5.0); ALCOHOL, BLOOD < 3 mg/dL (0-0); ALKALINE PHOSPHATASE 83 U/L (46-116); ASPARTATE AMINOTRANSFERASE 46 U/L (15-37); BILIRUBIN,DIRECT 0.2 mg/dL (0.0-0.2); BILIRUBIN,TOTAL 1.1 mg/dL (0.2-1.0); SALICYLATE 1.5 mg/dL (2.8-20.0); TOTAL PROTEIN, SERUM 7.6 g/dL (6.4-8.2)
--- NOTE | 2019-01-07 18:35 | NUR ---
CALLED TRACY GARCIA LCSW FOR CONSULT. LEFT MESSAGE.
[2019-01-07 19:17] LABS: APPEARANCE,URINE Slightly Cloudy (CLEAR); BILIRUBIN,URINE Negative (NEGATIVE); BLOOD, URINE Negative Ery/uL (NEGATIVE); COLOR,URINE Yellow (YELLOW); KETONES,URINE 15 (NEGATIVE); LEUKOCYTE ESTERASE ,URINE Negative (NEGATIVE); NITRITE, URINE Negative (NEGATIVE); PROTEIN,URINE Negative (NEGATIVE); UGLUCOSE Negative (NEGATIVE)
[2019-01-07 19:28] LABS: BACTERIA,URINE Few /HPF (None Seen); RBC,URINE 0-2 /HPF (0-2); SQUAMOUS EPITHELIAL CELL,UR Few /HPF (None Seen); WBC,URINE 0-2 /HPF (0-3)
[2019-01-07] MEDS ORDERED: OLANZAPINE 5 MG TABLET PO ONE (19:30)
[2019-01-07] MEDS ORDERED: OLANZAPINE 5 MG TABLET ONE (19:31)
--- NOTE | 2019-01-07 21:55 | NUR ---
PT ACCEPTED TO [facility] BY DR MARTINEZ. # FOR REPORT [phone]
--- NOTE | 2019-01-07 22:06 | NUR ---
Suzan aaron in [facility] - 01/07/19 at 2207 by ANNETTE JUDAH EUGENE FOR BLS TRANSPORT. TRIP NUMBER [id number]
--- NOTE | 2019-01-07 22:07 | NUR ---
CALLED [facility] FOR BLS TRANSPORT. ETA 2 HOURS. TRIP NUMBER [id number]
--- NOTE | 2019-01-07 23:25 | NUR ---
REPORT GIVEN TO BRIGITTE SHIN FOR CONTINUATION OF CARE.
--- NOTE | 2019-01-07 23:26 | NUR ---
[facility] AT BEDSIDE FOR TRANSPORT TO [facility].
== END 2019-01-07 23:33 ==
LOC: ER 15:48
DX: R45.851 Suicidal ideations (principal); F98.8 Other specified behavioral and emotional disorders with onset usually occurring in childhood and adolescence; F17.200 Nicotine dependence, unspecified, uncomplicated; Z98.890 Other specified postprocedural states; Z88.1 Allergy status to other antibiotic agents; Z88.6 Allergy status to analgesic agent
CPT/HCPCS: 36415; 80048; 80076; 80305; 80307; 80329; 81001; 85025; 99285; G0480; 81000-TC

== ENCOUNTER 2019-01-25 00:48 | Emergency (ER) | payer MEDICAID, OTHER ==
[~2019-01-25] VITALS: Ht 165.1 cm; Wt 94.8 kg
--- NOTE | 2019-01-25 01:20 | NUR ---
PT BIBSELF BIBS. C/O +SI - HI, NO ACTUVE PLANS AT THIS TIME. PT AOX4 RR EVEN AND UNLABORED. NO SOB NOTED. NO NVD AT THIS TIME. PT PLACED ON SUICIDE PRECAUTION. BELONGINGS AT NURSES STATION.
[2019-01-25 01:22] LABS: BASOPHILS # (AUTO) 0.1 /CMM (0.0-0.2); BASOPHILS % (AUTO) 0.6 % (0.0-2.0); HEMATOCRIT 46 % (39-51); HEMOGLOBIN 15.9 g/dL (13.5-17.5); LYMPHOCYTES # (AUTO) 2.5 /CMM (0.8-4.8); LYMPHOCYTES % (AUTO) 24.8 % (20.0-44.0); MEAN CORPUSCULAR HGB CONC 35 g/dl (31.0-36.0); MEAN CORPUSCULAR VOLUME 89 fL (80-96); MONOCYTES # (AUTO) 0.9 /CMM (0.1-1.30); MONOCYTES % (AUTO) 9.3 % (2.0-12.0); NEUTROPHILS # (AUTO) 6.5 /CMM (1.8-8.9); NEUTROPHILS % (AUTO) 64.3 % (43.0-81.0); PLATELET COUNT (AUTO) 324 /CMM (150-450); RED BLOOD CELL COUNT(AUTO) 5.14 MIL/uL (4.5-6.0); WHITE BLOOD COUNT (AUTO) 10.1 K/uL (4.3-11.0)
[2019-01-25 01:34] LABS: CALCIUM, SERUM 8.9 mg/dL (8.5-10.1); CARBON DIOXIDE 24 mmol/L (21-32); CHLORIDE 102 mmol/L (98-107); GLUCOSE 116 mg/dL (74-106); POTASSIUM 3.5 mmol/L (3.5-5.1); SODIUM SERUM 139 mmol/L (136-145); UREA NITROGEN, BLOOD 11 mg/dL (7-18)
[2019-01-25 01:36] LABS: APPEARANCE,URINE Clear (CLEAR); BILIRUBIN,URINE SMALL (NEGATIVE); BLOOD, URINE Negative Ery/uL (NEGATIVE); COLOR,URINE Yellow (YELLOW); KETONES,URINE Trace (NEGATIVE); LEUKOCYTE ESTERASE ,URINE Negative (NEGATIVE); NITRITE, URINE Negative (NEGATIVE); PH,URINE 5.5 (5.0-8.0); PROTEIN,URINE Trace mg/dl (NEGATIVE); UGLUCOSE Negative (NEGATIVE); UROBILINOGEN,URINE 0.2 EU/dL (0.2)
[2019-01-25 01:39] LABS: ACETAMINOPHEN 0 ug/ml (10-30); ALANINE AMINOTRANSFERASE 61 U/L (12-78); ALBUMIN 4.2 g/dL (3.4-5.0); ALCOHOL, BLOOD < 3 mg/dL (0-0); ALKALINE PHOSPHATASE 93 U/L (46-116); ASPARTATE AMINOTRANSFERASE 25 U/L (15-37); BILIRUBIN,DIRECT 0.1 mg/dL (0.0-0.2); BILIRUBIN,TOTAL 0.5 mg/dL (0.2-1.0); SALICYLATE 3.5 mg/dL (2.8-20.0)
--- NOTE | 2019-01-25 01:49 | NUR ---
MITCH LANDSCAPING MANAGER PAGED FOR EVAL.
[2019-01-25 02:08] LABS: BACTERIA,URINE Few /HPF (None Seen); HYALINE CASTS, URINE Few /LPF (None Seen); RBC,URINE 0-2 /HPF (0-2); SQUAMOUS EPITHELIAL CELL,UR Rare /HPF (None Seen)
[2019-01-25] MEDS ORDERED: OLANZAPINE 5 MG/TAB.RAPDIS ONE (02:53)
--- NOTE | 2019-01-25 04:29 | NUR ---
REFER TO DOWN TIME CHARTING PRIOR TO THIS TIME.
--- NOTE | 2019-01-25 07:23 | NUR ---
PT APPEARS COMFORTABLE AT THIS TIME. PT RESTING WITH EYES CLOSED, PT AROUSABLE, REPORT GIVEN TO ALEIDA CORONEL.
--- NOTE | 2019-01-25 13:22 | NUR ---
PATIENT RESPONSIVE TO VERBAL AND TACTILE STIMULI. NO DISTRESS NOTED. WILL MONITOR.
--- NOTE | 2019-01-25 14:51 | NUR ---
PATIENT A/OX3, AMBULATES INDEPENDENTLY, MEALS PROVIDED. PATIENT IS BEING EVALUATED BY ELBA SHIN FOR CRISIS CONSULT. NEEDS ATTENDED. WILL MONITOR.
--- NOTE | 2019-01-25 14:58 | NUR ---
PT TO GO [facility]. # FOR REPORT, EXT [phone] ACCEPTED BY BART MARTINEZ
--- NOTE | 2019-01-25 15:10 | NUR ---
REPORT GIVEN TO AMARILIS AT [facility], AMBULANCE ETA 1 HOUR.
--- NOTE | 2019-01-25 16:11 | NUR ---
60 MIN ETA FOR AMBULANCE
--- NOTE | 2019-01-25 17:55 | NUR ---
PATIENT LEFT FOR [facility] IN STABLE CONDITION. REPORT GIVEN TO PATTERN GRADER SUPERVISOR, PAPERWORKS GIVEN.
[2019-01-25 17:57] VITALS: BP 118/84
== END 2019-01-25 17:57 ==
LOC: ER 00:51
DX: R45.851 Suicidal ideations (principal); F20.9 Schizophrenia, unspecified; F31.9 Bipolar disorder, unspecified; F10.10 Alcohol abuse, uncomplicated; F17.200 Nicotine dependence, unspecified, uncomplicated; Y90.0 Blood alcohol level of less than 20 mg/100 ml; Z86.19 Personal history of other infectious and parasitic diseases; Z98.890 Other specified postprocedural states; Z88.1 Allergy status to other antibiotic agents; Z88.6 Allergy status to analgesic agent
CPT/HCPCS: 36415; 80048; 80076; 80305; 80307; 80329; 81001; 85025; 99285; G0480; 81000-TC

== ENCOUNTER 2019-02-18 19:59 | Emergency (ER) | payer OTHER ==
[~2019-02-18] VITALS: Ht 170.2 cm; Wt 99.8 kg
[2019-02-18 20:08] VITALS: BP 157/94
[2019-02-18] MEDS ORDERED: LORAZEPAM 1 MG TABLET ONE (20:21)
[2019-02-18] MEDS ORDERED: LORAZEPAM 1 MG TABLET PO ONE (20:30)
--- NOTE | 2019-02-18 20:30 | NUR ---
BIB SELF, AAOX4. NAD, BREATHING EVEN AND UNLABORED. AMBULATORY. C/O HEARING VOICES AND PARANOIA, HE THINKS PEOPLE ARE STALKING HIM. DENIES SI AND HI. TO ER BED 13. AWAITING MD FOR EVAL
--- NOTE | 2019-02-18 20:39 | NUR ---
STYLIST APPRENTICE AT BEDSIDE FOR BLOOD DRAW.
[2019-02-18 20:42] LABS: BASOPHILS # (AUTO) 0.1 /CMM (0.0-0.2); BASOPHILS % (AUTO) 0.6 % (0.0-2.0); EOSINOPHILS % (AUTO) 0.6 % (0.0-6.0); HEMATOCRIT 46 % (39-51); HEMOGLOBIN 15.9 g/dL (13.5-17.5); LYMPHOCYTES # (AUTO) 2.1 /CMM (0.8-4.8); LYMPHOCYTES % (AUTO) 18.9 % (20.0-44.0); MEAN CORPUSCULAR HGB CONC 34 g/dl (31.0-36.0); MEAN CORPUSCULAR VOLUME 89 fL (80-96); MONOCYTES # (AUTO) 1.6 /CMM (0.1-1.30); MONOCYTES % (AUTO) 14.7 % (2.0-12.0); NEUTROPHILS # (AUTO) 7.2 /CMM (1.8-8.9); NEUTROPHILS % (AUTO) 65.2 % (43.0-81.0); PLATELET COUNT (AUTO) 308 /CMM (150-450); RED BLOOD CELL COUNT(AUTO) 5.18 MIL/uL (4.5-6.0)
[2019-02-18 20:59] LABS: ALANINE AMINOTRANSFERASE 77 U/L (12-78); ALBUMIN 4.3 g/dL (3.4-5.0); ALKALINE PHOSPHATASE 94 U/L (46-116); ASPARTATE AMINOTRANSFERASE 59 U/L (15-37); BILIRUBIN,DIRECT 0.1 mg/dL (0.0-0.2); BILIRUBIN,TOTAL 0.9 mg/dL (0.2-1.0); CALCIUM, SERUM 9.6 mg/dL (8.5-10.1); CARBON DIOXIDE 25 mmol/L (21-32); CHLORIDE 103 mmol/L (98-107); CREATININE 1.1 mg/dL (0.6-1.3); GLUCOSE 109 mg/dL (74-106); POTASSIUM 4.1 mmol/L (3.5-5.1); SODIUM SERUM 143 mmol/L (136-145); TOTAL PROTEIN, SERUM 8.3 g/dL (6.4-8.2); UREA NITROGEN, BLOOD 20 mg/dL (7-18)
[2019-02-18 21:15] LABS: ACETAMINOPHEN < 2 ug/ml (10-30); SALICYLATE 2.3 mg/dL (2.8-20.0)
[2019-02-18 21:16] LABS: ALCOHOL, BLOOD < 3 mg/dL (0-0)
--- NOTE | 2019-02-18 23:58 | NUR ---
PT REFUSES TO HAVE HIS VS TAKEN.
[2019-02-19 00:37] LABS: APPEARANCE,URINE Clear (CLEAR); BILIRUBIN,URINE SMALL (NEGATIVE); BLOOD, URINE Negative Ery/uL (NEGATIVE); COLOR,URINE Yellow (YELLOW); KETONES,URINE 15 (NEGATIVE); LEUKOCYTE ESTERASE ,URINE Negative (NEGATIVE); NITRITE, URINE Negative (NEGATIVE); PROTEIN,URINE 30 mg/dl (NEGATIVE); UGLUCOSE Negative (NEGATIVE); UROBILINOGEN,URINE 0.2 EU/dL (0.2)
[2019-02-19 01:22] LABS: BACTERIA,URINE Few /HPF (None Seen); RBC,URINE 0-2 /HPF (0-2); WBC,URINE 0-2 /HPF (0-3)
[2019-02-19 01:23] LABS: SQUAMOUS EPITHELIAL CELL,UR Few /HPF (None Seen)
--- NOTE | 2019-02-19 01:47 | NUR ---
PT ACCEPTED TO [facility] NUMBER FOR REPORT: [phone] ACCEPTING PHYSICIAN: DR. MARTINEZ
--- NOTE | 2019-02-19 01:51 | NUR ---
CALLED [facility] FOR TRANSPORTATION ETA 30-40 MIN. TRIP#[id number]
--- NOTE | 2019-02-19 02:12 | NUR ---
[facility] AT BEDSIDE FOR TRANSPORT TO [facility],
== END 2019-02-19 02:27 ==
LOC: ER 20:03
DX: F20.9 Schizophrenia, unspecified (principal); F32.9 Major depressive disorder, single episode, unspecified; F98.8 Other specified behavioral and emotional disorders with onset usually occurring in childhood and adolescence; F17.200 Nicotine dependence, unspecified, uncomplicated; Z86.19 Personal history of other infectious and parasitic diseases; Z98.890 Other specified postprocedural states; Z88.1 Allergy status to other antibiotic agents; Z88.6 Allergy status to analgesic agent
CPT/HCPCS: 36415; 80048; 80076; 80305; 80307; 80329; 81001; 85025; 99285; G0480; 81000-TC

== ENCOUNTER 2019-03-04 01:46 | Emergency (ER) | payer OTHER ==
[~2019-03-04] VITALS: Ht 170.2 cm; Wt 99.8 kg
--- NOTE | 2019-03-04 02:15 | NUR ---
PT IN BED 13 IN A GOWN. ALL BELONGINGS TAKEN AND STORED AWAY FROM THE PATIENT. SECURITY CALLED FOR PT TO BE WANDED.
[2019-03-04 02:22] LABS: APPEARANCE,URINE Clear (CLEAR); BILIRUBIN,URINE Negative (NEGATIVE); BLOOD, URINE Negative Ery/uL (NEGATIVE); COLOR,URINE Yellow (YELLOW); KETONES,URINE Negative (NEGATIVE); LEUKOCYTE ESTERASE ,URINE Negative (NEGATIVE); NITRITE, URINE Negative (NEGATIVE); PROTEIN,URINE Negative (NEGATIVE); UGLUCOSE Negative (NEGATIVE); UROBILINOGEN,URINE 0.2 EU/dL (0.2)
[2019-03-04 02:43] LABS: CALCIUM, SERUM 8.5 mg/dL (8.5-10.1); CARBON DIOXIDE 26 mmol/L (21-32); CHLORIDE 103 mmol/L (98-107); CREATININE 0.9 mg/dL (0.6-1.3); GLUCOSE 104 mg/dL (74-106); POTASSIUM 3.7 mmol/L (3.5-5.1); SODIUM SERUM 137 mmol/L (136-145); UREA NITROGEN, BLOOD 21 mg/dL (7-18)
[2019-03-04 02:48] LABS: ALANINE AMINOTRANSFERASE 60 U/L (12-78); ALBUMIN 3.5 g/dL (3.4-5.0); ALCOHOL, BLOOD < 3 mg/dL (0-0); ALKALINE PHOSPHATASE 113 U/L (46-116); ASPARTATE AMINOTRANSFERASE 29 U/L (15-37); BILIRUBIN,DIRECT 0.1 mg/dL (0.0-0.2); BILIRUBIN,TOTAL 0.4 mg/dL (0.2-1.0)
[2019-03-04 02:49] LABS: BASOPHILS # (AUTO) 0.1 /CMM (0.0-0.2); BASOPHILS % (AUTO) 1.3 % (0.0-2.0); EOSINOPHILS % (AUTO) 4.9 % (0.0-6.0); HEMATOCRIT 41 % (39-51); LYMPHOCYTES # (AUTO) 2.2 /CMM (0.8-4.8); LYMPHOCYTES % (AUTO) 29.4 % (20.0-44.0); MEAN CORPUSCULAR HGB CONC 34 g/dl (31.0-36.0); MEAN CORPUSCULAR VOLUME 89 fL (80-96); MONOCYTES # (AUTO) 0.9 /CMM (0.1-1.30); MONOCYTES % (AUTO) 12.2 % (2.0-12.0); NEUTROPHILS # (AUTO) 3.8 /CMM (1.8-8.9); NEUTROPHILS % (AUTO) 52.2 % (43.0-81.0); PLATELET COUNT (AUTO) 272 /CMM (150-450); WHITE BLOOD COUNT (AUTO) 7.3 K/uL (4.3-11.0)
[2019-03-04 02:50] LABS: ACETAMINOPHEN 0 ug/ml (10-30)
--- NOTE | 2019-03-04 03:23 | NUR ---
PT AMBULATORY TO THE BATHROOM WITH STEADY GAIT NOTED. PT CALM AND COOPERATIVE AT THIS TIME.
--- NOTE | 2019-03-04 03:31 | NUR ---
TRACY CRISIS TEAM AT BEDSIDE FOR EVAL .
--- NOTE | 2019-03-04 04:39 | NUR ---
PT RESTING IN GURNEY. NO SIGNS OF DISTRESS NOTED. PT VITAL SIGNS STABLE. WILL CONT TO MONITOR PT.
--- NOTE | 2019-03-04 06:36 | NUR ---
PT ACCEPTED TO [facility] BY DR MARTINEZ. # FOR REPORT [phone].
--- NOTE | 2019-03-04 07:19 | NUR ---
[facility] CALLED FOR TRANSPORT [phone]. ETA 0830, [facility]
--- NOTE | 2019-03-04 07:34 | NUR ---
REPORT GIVEN TO CHRISTA SHIN OF [facility] PSYCH 2 UNIT
--- NOTE | 2019-03-04 08:38 | NUR ---
Patient discharged to [facility] in stable condition going to [facility]. Written and verbal after care instructions given. Patient verbalized understanding of instruction.
[2019-03-04 08:42] VITALS: BP 122/60
== END 2019-03-04 08:43 ==
LOC: ER 01:49
DX: R45.851 Suicidal ideations (principal); F15.10 Other stimulant abuse, uncomplicated; F17.200 Nicotine dependence, unspecified, uncomplicated; F20.9 Schizophrenia, unspecified; F32.9 Major depressive disorder, single episode, unspecified; F10.10 Alcohol abuse, uncomplicated; Y90.0 Blood alcohol level of less than 20 mg/100 ml; Z86.19 Personal history of other infectious and parasitic diseases; Z98.890 Other specified postprocedural states; Z88.1 Allergy status to other antibiotic agents; Z88.6 Allergy status to analgesic agent
CPT/HCPCS: 36415; 80048-TC; 80076-TC; 80305; 81000-TC; 85025-TC; G0480

== ENCOUNTER 2019-03-15 07:26 | Emergency (ER) | payer OTHER ==
[~2019-03-15] VITALS: Ht 170.2 cm; Wt 102.1 kg
--- NOTE | 2019-03-15 07:32 | NUR ---
PT BIB SELF C/O "IM FEELING SUICIDAL SINCE LAST NIGHT." I HAVENT TAKEN MY MEDS X 2 DAYS. PT IS AAOX4, NOT IN RESPIRATORY DISTRESS, KEPT RESTED AND COMFORTABLE, WILL CONTINUE TO MONITOR.
--- NOTE | 2019-03-15 07:35 | NUR ---
PT PLACED ON GOWN. BELONGINGS TAKEN OUT OF THE ROOM. SECURITY AT BEDSIDE FOR WANDING AND SEARCH.
--- NOTE | 2019-03-15 07:55 | NUR ---
SEEN AND EXAMINED BY JORDY ANTHONY.
[2019-03-15] MEDS ORDERED: LORAZEPAM 1 MG TABLET PO ONE (08:00)
[2019-03-15] MEDS ORDERED: LORAZEPAM 1 MG TABLET ONE (08:02)
--- NOTE | 2019-03-15 08:05 | NUR ---
URINE SPECIMEN COLLECTED AND SENT T TO LAB.
[2019-03-15 08:07] LABS: APPEARANCE,URINE Clear (CLEAR); BILIRUBIN,URINE Negative (NEGATIVE); BLOOD, URINE Negative Ery/uL (NEGATIVE); KETONES,URINE Trace (NEGATIVE); LEUKOCYTE ESTERASE ,URINE Negative (NEGATIVE); NITRITE, URINE Negative (NEGATIVE); PROTEIN,URINE 30 mg/dl (NEGATIVE); UGLUCOSE Negative (NEGATIVE); UROBILINOGEN,URINE 0.2 EU/dL (0.2)
[2019-03-15 08:08] LABS: COLOR,URINE Dark Yellow (YELLOW)
--- NOTE | 2019-03-15 08:10 | NUR ---
ER PHLEB AT BEDSIDE FOR BLOOD DRAW.
[2019-03-15 08:17] LABS: BASOPHILS # (AUTO) 0.1 /CMM (0.0-0.2); EOSINOPHILS % (AUTO) 2.6 % (0.0-6.0); HEMATOCRIT 45 % (39-51); HEMOGLOBIN 15.3 g/dL (13.5-17.5); LYMPHOCYTES # (AUTO) 1.8 /CMM (0.8-4.8); LYMPHOCYTES % (AUTO) 14.9 % (20.0-44.0); MEAN CORPUSCULAR HGB CONC 34 g/dl (31.0-36.0); MEAN CORPUSCULAR VOLUME 89 fL (80-96); MONOCYTES # (AUTO) 0.9 /CMM (0.1-1.30); MONOCYTES % (AUTO) 7.3 % (2.0-12.0); NEUTROPHILS # (AUTO) 9.1 /CMM (1.8-8.9); NEUTROPHILS % (AUTO) 74.2 % (43.0-81.0); PLATELET COUNT (AUTO) 300 /CMM (150-450); RED BLOOD CELL COUNT(AUTO) 5.08 MIL/uL (4.5-6.0); WHITE BLOOD COUNT (AUTO) 12.2 K/uL (4.3-11.0)
[2019-03-15 08:20] LABS: MUCUS,URINE Few /LPF (None Seen); SQUAMOUS EPITHELIAL CELL,UR None Seen /HPF (None Seen)
[2019-03-15 08:21] LABS: BACTERIA,URINE Few /HPF (None Seen); RBC,URINE 0-2 /HPF (0-2); WBC,URINE 0-2 /HPF (0-3)
[2019-03-15 08:22] LABS: CALCIUM, SERUM 8.8 mg/dL (8.5-10.1); CARBON DIOXIDE 25 mmol/L (21-32); CHLORIDE 101 mmol/L (98-107); CREATININE 1.1 mg/dL (0.6-1.3); GLUCOSE 99 mg/dL (74-106); POTASSIUM 4.1 mmol/L (3.5-5.1); SODIUM SERUM 139 mmol/L (136-145); UREA NITROGEN, BLOOD 25 mg/dL (7-18)
[2019-03-15 08:28] LABS: ACETAMINOPHEN < 2 ug/ml (10-30); ALANINE AMINOTRANSFERASE 81 U/L (12-78); ALBUMIN 4.3 g/dL (3.4-5.0); ALCOHOL, BLOOD < 3 mg/dL (0-0); ALKALINE PHOSPHATASE 95 U/L (46-116); ASPARTATE AMINOTRANSFERASE 76 U/L (15-37); BILIRUBIN,DIRECT 0.2 mg/dL (0.0-0.2); SALICYLATE 2.9 mg/dL (2.8-20.0); TOTAL PROTEIN, SERUM 8.2 g/dL (6.4-8.2)
--- NOTE | 2019-03-15 08:52 | NUR ---
CALLED [facility] RN CRISIS TEAM FOR PT PSYCH EVAL.
[2019-03-15 08:58] LABS: EOSINOPHILS % (MANUAL) 2 % (0-4); LYMPHOCYTES % (MANUAL) 20 % (16-48); MONOCYTES % (MANUAL) 10 % (0-11.0); NEUTROPHILS % (MANUAL) 68 (42-76)
--- NOTE | 2019-03-15 11:00 | NUR ---
ELBA SHIN CRISISTEAM AT BEDSIDE FOR EVAL.
[2019-03-15] MEDS ORDERED: ACETAMINOPHEN 325 MG TABLET PO ONE (14:30)
--- NOTE | 2019-03-15 15:32 | NUR ---
FOOD TRAY PROVIDED.
[2019-03-15 18:52] VITALS: BP 133/86
--- NOTE | 2019-03-15 22:00 | NUR ---
Report given to Daniele SHIN for continuation of care.
--- NOTE | 2019-03-15 22:16 | NUR ---
CALLED [facility] FOR BLS TRANSPORT, 60 MIN ETA (APPROX 4840)
--- NOTE | 2019-03-15 22:53 | NUR ---
[facility] at bedside for transport to [facility].
== END 2019-03-15 23:01 ==
LOC: ER 07:26
DX: R45.851 Suicidal ideations (principal); F15.929 Other stimulant use, unspecified with intoxication, unspecified; F32.9 Major depressive disorder, single episode, unspecified; F20.9 Schizophrenia, unspecified; F19.10 Other psychoactive substance abuse, uncomplicated; F10.10 Alcohol abuse, uncomplicated; F17.200 Nicotine dependence, unspecified, uncomplicated; R00.0 Tachycardia, unspecified; H57.04 Mydriasis; Y90.0 Blood alcohol level of less than 20 mg/100 ml; Z04.6 Encounter for general psychiatric examination, requested by authority; Z86.19 Personal history of other infectious and parasitic diseases; Z98.890 Other specified postprocedural states; Z88.1 Allergy status to other antibiotic agents; Z88.6 Allergy status to analgesic agent
CPT/HCPCS: 36415; 80048-TC; 80076-TC; 80305; 81000-TC; 85025-TC; G0480

== ENCOUNTER 2019-03-25 23:37 | Emergency (ER) | payer OTHER ==
[~2019-03-25] VITALS: Ht 170.2 cm; Wt 99.8 kg
--- NOTE | 2019-03-26 01:15 | NUR ---
CALLED IN [facility], NO ANSWER.
--- NOTE | 2019-03-26 02:38 | NUR ---
PATIENT NOT IN THE WR.
--- NOTE | 2019-03-26 02:45 | NUR ---
PT IN BED 15 WITH ALL BELONGINGS LABELED AND TAKEN AWAY FROM PT. PT IN HOSPITAL GOWN IN BED AWAITING TO BE WANDED BY SECURITY.
--- NOTE | 2019-03-26 02:50 | NUR ---
PT WANDED BY SECURITY.
--- NOTE | 2019-03-26 03:07 | NUR ---
URINE COLLECTED AND SENT TO LAB
--- NOTE | 2019-03-26 03:21 | NUR ---
PHLEB AT BEDSIDE FOR LAB DRAW
[2019-03-26 03:37] LABS: BASOPHILS % (AUTO) 0.4 % (0.0-2.0); HEMATOCRIT 42 % (39-51); HEMOGLOBIN 14.6 g/dL (13.5-17.5); LYMPHOCYTES # (AUTO) 2.3 /CMM (0.8-4.8); LYMPHOCYTES % (AUTO) 25.6 % (20.0-44.0); MEAN CORPUSCULAR HGB CONC 35 g/dl (31.0-36.0); MEAN CORPUSCULAR VOLUME 88 fL (80-96); MONOCYTES % (AUTO) 11.6 % (2.0-12.0); NEUTROPHILS # (AUTO) 5.3 /CMM (1.8-8.9); NEUTROPHILS % (AUTO) 59.4 % (43.0-81.0); PLATELET COUNT (AUTO) 242 /CMM (150-450); RED BLOOD CELL COUNT(AUTO) 4.77 MIL/uL (4.5-6.0)
[2019-03-26 03:39] LABS: CALCIUM, SERUM 8.5 mg/dL (8.5-10.1); CARBON DIOXIDE 25 mmol/L (21-32); CHLORIDE 102 mmol/L (98-107); CREATININE 0.9 mg/dL (0.6-1.3); GLUCOSE 82 mg/dL (74-106); POTASSIUM 3.5 mmol/L (3.5-5.1); SODIUM SERUM 138 mmol/L (136-145); UREA NITROGEN, BLOOD 14 mg/dL (7-18)
[2019-03-26 03:45] LABS: ALANINE AMINOTRANSFERASE 57 U/L (12-78); ALBUMIN 3.8 g/dL (3.4-5.0); ALCOHOL, BLOOD < 3 mg/dL (0-0); ALKALINE PHOSPHATASE 81 U/L (46-116); ASPARTATE AMINOTRANSFERASE 31 U/L (15-37); BILIRUBIN,DIRECT 0.2 mg/dL (0.0-0.2); BILIRUBIN,TOTAL 0.8 mg/dL (0.2-1.0); SALICYLATE 3.4 mg/dL (2.8-20.0); TOTAL PROTEIN, SERUM 7.3 g/dL (6.4-8.2)
[2019-03-26 03:50] LABS: ACETAMINOPHEN 0 ug/ml (10-30)
--- NOTE | 2019-03-26 05:40 | NUR ---
[facility] CALLED [phone], TRANSPORT NUMBER#[id number]. WILL CALL BACK WITH
--- NOTE | 2019-03-26 05:45 | NUR ---
ACCEPTING DR. MCGINNIS, CALL [phone] EXT [phone] FOR REPORT.
--- NOTE | 2019-03-26 05:47 | NUR ---
[facility] ETA [phone].
--- NOTE | 2019-03-26 06:57 | NUR ---
REPORT GIVEN TO [facility] EMT FOR TRANSPORT.
[2019-03-26 07:02] VITALS: BP 133/80
== END 2019-03-26 07:03 ==
LOC: ER 23:37
DX: R44.3 Hallucinations, unspecified (principal); F32.9 Major depressive disorder, single episode, unspecified; R45.851 Suicidal ideations; F10.10 Alcohol abuse, uncomplicated; F17.200 Nicotine dependence, unspecified, uncomplicated; F15.10 Other stimulant abuse, uncomplicated; Y90.0 Blood alcohol level of less than 20 mg/100 ml; Z59.0 Homelessness; Z71.6 Tobacco abuse counseling; Z86.19 Personal history of other infectious and parasitic diseases; Z98.890 Other specified postprocedural states; Z88.1 Allergy status to other antibiotic agents; Z88.6 Allergy status to analgesic agent
CPT/HCPCS: 36415; 80048; 80076; 80305; 80307; 80329; 85025; 99285; 99406; G0480

== ENCOUNTER 2019-04-09 15:22 | Emergency (ER) | payer OTHER ==
[~2019-04-09] VITALS: Ht 170.2 cm; Wt 102.5 kg
--- NOTE | 2019-04-09 15:25 | NUR ---
PT AMBULATORY TO ED BED 14. C/O DEPRESSION AND [facility] STATES SI. DENIES ANY SPECIFIC PLAN SEPTIC CLEANER. AAOX3. COOPERATIVE TO STAFF. AWAITING MD SHARP.
--- NOTE | 2019-04-09 15:33 | NUR ---
DR FATIMA AT BEDSIDE FOR EVAL.
--- NOTE | 2019-04-09 15:38 | NUR ---
LANG PATH THERAPIST AT BEDSIDE FOR BLOOD DRAW.
[2019-04-09 15:53] LABS: BASOPHILS % (AUTO) 0.4 % (0.0-2.0); EOSINOPHILS % (AUTO) 3.3 % (0.0-6.0); HEMATOCRIT 46 % (39-51); HEMOGLOBIN 15.4 g/dL (13.5-17.5); LYMPHOCYTES # (AUTO) 2.3 /CMM (0.8-4.8); LYMPHOCYTES % (AUTO) 27.3 % (20.0-44.0); MEAN CORPUSCULAR HGB CONC 34 g/dl (31.0-36.0); MEAN CORPUSCULAR VOLUME 89 fL (80-96); MONOCYTES # (AUTO) 0.7 /CMM (0.1-1.30); MONOCYTES % (AUTO) 8.9 % (2.0-12.0); NEUTROPHILS % (AUTO) 60.1 % (43.0-81.0); PLATELET COUNT (AUTO) 275 /CMM (150-450); WHITE BLOOD COUNT (AUTO) 8.4 K/uL (4.3-11.0)
[2019-04-09 15:57] LABS: APPEARANCE,URINE CLEAR (CLEAR); BILIRUBIN,URINE NEGATIVE (NEGATIVE); BLOOD, URINE NEGATIVE Ery/uL (NEGATIVE); COLOR,URINE YELLOW (YELLOW); KETONES,URINE NEGATIVE (NEGATIVE); LEUKOCYTE ESTERASE ,URINE NEGATIVE (NEGATIVE); NITRITE, URINE NEGATIVE (NEGATIVE); PROTEIN,URINE NEGATIVE (NEGATIVE); UGLUCOSE NEGATIVE (NEGATIVE); UROBILINOGEN,URINE 0.2 EU/dL (0.2)
[2019-04-09 16:20] LABS: ALANINE AMINOTRANSFERASE 50 U/L (12-78); ALBUMIN 3.6 g/dL (3.4-5.0); ALCOHOL, BLOOD < 3 mg/dL (0-0); ALKALINE PHOSPHATASE 118 U/L (46-116); ASPARTATE AMINOTRANSFERASE 13 U/L (15-37); BILIRUBIN,TOTAL 0.2 mg/dL (0.2-1.0); CALCIUM, SERUM 9.1 mg/dL (8.5-10.1); CHLORIDE 102 mmol/L (98-107); CREATININE 1.2 mg/dL (0.6-1.3); GLUCOSE 116 mg/dL (74-106); POTASSIUM 3.9 mmol/L (3.5-5.1); SODIUM SERUM 139 mmol/L (136-145); TOTAL PROTEIN, SERUM 7.2 g/dL (6.4-8.2); UREA NITROGEN, BLOOD 23 mg/dL (7-18)
[2019-04-09 16:25] LABS: ACETAMINOPHEN 0 ug/ml (10-30); SALICYLATE 2.5 mg/dL (2.8-20.0)
[2019-04-09 16:30] LABS: CARBON DIOXIDE 28 mmol/L (21-32)
--- NOTE | 2019-04-09 19:22 | NUR ---
FACE SHEET AND CLINICALS FAXED TO [facility]
--- NOTE | 2019-04-09 22:05 | NUR ---
PT ACCEPTED TO [facility] NUMBER FOR REPORT: [phone] UNIT 1
--- NOTE | 2019-04-09 22:15 | NUR ---
[facility]
--- NOTE | 2019-04-09 23:05 | NUR ---
FOLLOWED UP ON TRANSPORTATION, ETA [phone]
[2019-04-09 23:06] VITALS: BP 138/59
--- NOTE | 2019-04-10 00:20 | NUR ---
GAVE REPORT TO [facility] FOR TRANSPORTATION [place]
== END 2019-04-10 00:30 | disposition short-term general hospital (02) ==
LOC: ER 15:23
DX: R45.851 Suicidal ideations (principal); F32.9 Major depressive disorder, single episode, unspecified; F20.9 Schizophrenia, unspecified; F10.10 Alcohol abuse, uncomplicated; F17.200 Nicotine dependence, unspecified, uncomplicated; F15.10 Other stimulant abuse, uncomplicated; Y90.0 Blood alcohol level of less than 20 mg/100 ml; Z86.19 Personal history of other infectious and parasitic diseases; Z98.890 Other specified postprocedural states; Z88.1 Allergy status to other antibiotic agents; Z88.6 Allergy status to analgesic agent
CPT/HCPCS: 36415; 80048; 80076; 80305; 80307; 80329; 81001; 85025; 99285; G0480; 81000-TC

== ENCOUNTER 2019-04-21 23:10 | Emergency (ER) | payer OTHER ==
[~2019-04-21] VITALS: Ht 170.2 cm; Wt 99.8 kg
--- NOTE | 2019-04-21 23:15 | NUR ---
BIBSELF C/O AUDITORY HALLUCINATIONS TO RUN INTO TRAFFIC. PT ADMITS TO DRINKING ALCOHOL EARLIER TODAY. PT APPEARS DISSHEVELED AND IS TAKLING TO HIMSELF, EASILY DISTRACTED. VITAL SIGNS STABLE. ABLE TO AMBULATE WITH STEADY GAIT. SUICIDE PRECAUTIONS INITAITED. PLACED IN GOWN AND BELONGINGS COLLECTED. SITTER AT BEDSIDE.
--- NOTE | 2019-04-21 23:44 | NUR ---
ANGLE DOZER OPERATOR AT BEDSIDE FOR BLOOD DRAW
[2019-04-21 23:49] LABS: BASOPHILS % (AUTO) 0.8 % (0.0-2.0); EOSINOPHILS % (AUTO) 4.2 % (0.0-6.0); HEMATOCRIT 40 % (39-51); HEMOGLOBIN 13.8 g/dL (13.5-17.5); LYMPHOCYTES # (AUTO) 1.9 /CMM (0.8-4.8); LYMPHOCYTES % (AUTO) 30.9 % (20.0-44.0); MEAN CORPUSCULAR HGB CONC 34 g/dl (31.0-36.0); MEAN CORPUSCULAR VOLUME 90 fL (80-96); MONOCYTES # (AUTO) 0.9 /CMM (0.1-1.30); MONOCYTES % (AUTO) 14.7 % (2.0-12.0); NEUTROPHILS % (AUTO) 49.4 % (43.0-81.0); PLATELET COUNT (AUTO) 206 /CMM (150-450); RED BLOOD CELL COUNT(AUTO) 4.48 MIL/uL (4.5-6.0); WHITE BLOOD COUNT (AUTO) 6.2 K/uL (4.3-11.0)
[2019-04-22] LABS: ALANINE AMINOTRANSFERASE 75 U/L (12-78); ALBUMIN 3.6 g/dL (3.4-5.0); ALKALINE PHOSPHATASE 85 U/L (46-116); ASPARTATE AMINOTRANSFERASE 38 U/L (15-37); BILIRUBIN,DIRECT 0.2 mg/dL (0.0-0.2); BILIRUBIN,TOTAL 0.6 mg/dL (0.2-1.0); CALCIUM, SERUM 8.5 mg/dL (8.5-10.1); CARBON DIOXIDE 28 mmol/L (21-32); CHLORIDE 105 mmol/L (98-107); CREATININE 1.3 mg/dL (0.6-1.3); GLUCOSE 120 mg/dL (74-106); POTASSIUM 3.3 mmol/L (3.5-5.1); SODIUM SERUM 141 mmol/L (136-145); TOTAL PROTEIN, SERUM 6.8 g/dL (6.4-8.2); UREA NITROGEN, BLOOD 19 mg/dL (7-18)
[2019-04-22] MEDS ORDERED: LORAZEPAM INJ 2 MG/ML VIAL IVP ONE
[2019-04-22] MEDS ORDERED: IV NS 0.9% 1,000 ML BAG IV ONE
[2019-04-22 00:03] LABS: ACETAMINOPHEN < 2 ug/ml (10-30); ALCOHOL, BLOOD < 3 mg/dL (0-0); SALICYLATE 2.1 mg/dL (2.8-20.0)
--- NOTE | 2019-04-22 00:11 | NUR ---
PT UNABLE TO PROVIDE URINE SAMPLE AT THIS TIME, AWARE
[2019-04-22] MEDS ORDERED: LORAZEPAM INJ 2 MG/ML VIAL ONE (00:29)
--- NOTE | 2019-04-22 01:55 | NUR ---
PT UNABLE TO PROVIDE URINE SAMPLE AT THIS TIME, AWARE
--- NOTE | 2019-04-22 02:14 | NUR ---
PT UNABLE TO PROVIDE URINE SAMPLE AT THIS TIME. MD CHEN
--- NOTE | 2019-04-22 03:43 | NUR ---
PT UNABLE TO PROVIDE URINE SAMPLE AT THIS TIME. MD CHEN
--- NOTE | 2019-04-22 04:10 | NUR ---
URINE COLECTED AND SENT TO LAB
[2019-04-22 04:40] LABS: APPEARANCE,URINE CLEAR (CLEAR); BILIRUBIN,URINE NEGATIVE (NEGATIVE); BLOOD, URINE NEGATIVE Ery/uL (NEGATIVE); COLOR,URINE YELLOW (YELLOW); KETONES,URINE NEGATIVE (NEGATIVE); LEUKOCYTE ESTERASE ,URINE NEGATIVE (NEGATIVE); NITRITE, URINE NEGATIVE (NEGATIVE); PH,URINE 5.5 (5.0-8.0); PROTEIN,URINE NEGATIVE (NEGATIVE); UGLUCOSE NEGATIVE (NEGATIVE)
[2019-04-22 04:53] LABS: BACTERIA,URINE None seen /HPF (None Seen); RBC,URINE 0-2 /HPF (0-2); SQUAMOUS EPITHELIAL CELL,UR Few /HPF (None Seen); WBC,URINE 0-2 /HPF (0-3)
--- NOTE | 2019-04-22 05:21 | NUR ---
PT RESTING COMFORTABLY IN BED. EASILY AROUSABLE. STILL EXPRESSING SUICIDAL IDEATION WITH PLAN TO RUN INTO TRAFFIC. WILL CONTINUE TO MONITOR.
[2019-04-22] MEDS ORDERED: POTASSIUM CHLORIDE 20 MEQ TAB.PRT.SR PO ONE ×2 (06:06→06:30)
--- NOTE | 2019-04-22 06:58 | NUR ---
PT ACCEPTED AT [facility] [address]: CHARLA MARTINEZ UNIT 1 NUMBER FOR REPORT: [phone] EXT [id number]
--- NOTE | 2019-04-22 07:08 | NUR ---
ATTEMPTED TO GIVE REPORT TO DANA JONES, NOT TAKING REPORT AT THIS TIME. WILL PASS ON TO AM NURSE
--- NOTE | 2019-04-22 07:09 | NUR ---
CONTACTED CALL THE CAR FOR TRANSPORTATION. ETA 45 MINUTES TO 1 HOUR [facility]IA [facility]. CONFIRMATION NUMBER [id number]
--- NOTE | 2019-04-22 07:27 | NUR ---
GAVE REPORT TO MILEY SHIN FOR [place]
[2019-04-22 08:16] VITALS: BP 115/64
--- NOTE | 2019-04-22 08:26 | NUR ---
Patient discharged to EMS in stable condition going to [facility]. Written and verbal after care instructions given. Patient verbalized understanding of instruction.
== END 2019-04-22 08:31 ==
LOC: ER 04-22 00:58
DX: R45.851 Suicidal ideations (principal); F32.9 Major depressive disorder, single episode, unspecified; F20.9 Schizophrenia, unspecified; F10.10 Alcohol abuse, uncomplicated; F17.200 Nicotine dependence, unspecified, uncomplicated; F15.10 Other stimulant abuse, uncomplicated; Y90.0 Blood alcohol level of less than 20 mg/100 ml; Z86.19 Personal history of other infectious and parasitic diseases; Z98.890 Other specified postprocedural states; Z88.1 Allergy status to other antibiotic agents; Z88.6 Allergy status to analgesic agent; Z60.2 Problems related to living alone
CPT/HCPCS: 36415; 80048; 80076; 80305; 80307; 80329; 81001; 85025; 96374; 99285; A6403; G0480; J2060; J7030; 81000-TC

== ENCOUNTER 2019-05-02 23:12 | Emergency (ER) | payer OTHER ==
[~2019-05-02] VITALS: Ht 170.2 cm; Wt 99.8 kg
--- NOTE | 2019-05-02 23:30 | NUR ---
PT BIBSELF C/O SI WITH PLAN TO RUN INTO TRAFFIC. DENIES HI, HALLUCINATIONS AT THIS TIME. PT ADMITS TO USING METH X1 DAY AGO. PT AAOX4. RESPIRATIONS EVEN AND UNLABORED. SKIN INTACT. ABLE TO AMBULATE WITH STEADY GAIT. SUICIDE PRECAUTIONS INITIATED. WILL CONTINUE TO MONITOR
--- NOTE | 2019-05-02 23:37 | NUR ---
SECURITY AT BEDSIDE FOR WANDING
--- NOTE | 2019-05-02 23:50 | NUR ---
IV INITIATED, LABS DRAWN FROM SITE. STEEP TENDER AT BEDSIDE FOR COLLECTION. IV INTACT AND PATENT, PLACED ON SALINE LOCK
[2019-05-02] MEDS ORDERED: diphenhydrAMINE HCL 50 MG/ML VIAL ONE (23:59)
[2019-05-02] MEDS ORDERED: OLANZAPINE 10 MG VIAL IM ONE (23:59)
[2019-05-03] MEDS ORDERED: LORAZEPAM INJ 2 MG/ML VIAL ONE
[2019-05-03 00:01] LABS: BASOPHILS % (AUTO) 0.5 % (0.0-2.0); EOSINOPHILS % (AUTO) 1.2 % (0.0-6.0); HEMATOCRIT 46 % (39-51); HEMOGLOBIN 15.6 g/dL (13.5-17.5); LYMPHOCYTES # (AUTO) 2.2 /CMM (0.8-4.8); LYMPHOCYTES % (AUTO) 22.4 % (20.0-44.0); MEAN CORPUSCULAR HGB CONC 34 g/dl (31.0-36.0); MEAN CORPUSCULAR VOLUME 90 fL (80-96); MONOCYTES # (AUTO) 1.5 /CMM (0.1-1.30); MONOCYTES % (AUTO) 14.9 % (2.0-12.0); PLATELET COUNT (AUTO) 268 /CMM (150-450); RED BLOOD CELL COUNT(AUTO) 5.09 MIL/uL (4.5-6.0); WHITE BLOOD COUNT (AUTO) 9.8 K/uL (4.3-11.0)
[2019-05-03 00:10] LABS: CALCIUM, SERUM 9.2 mg/dL (8.5-10.1); CARBON DIOXIDE 29 mmol/L (21-32); CHLORIDE 103 mmol/L (98-107); GLUCOSE 109 mg/dL (74-106); POTASSIUM 3.9 mmol/L (3.5-5.1); SODIUM SERUM 140 mmol/L (136-145); UREA NITROGEN, BLOOD 18 mg/dL (7-18)
[2019-05-03] MEDS: OLANZAPINE 10 MG VIAL IM ONE (00:10)
[2019-05-03] MEDS: LORAZEPAM INJ 2 MG/ML VIAL IV ONE (00:10)
[2019-05-03] MEDS: diphenhydrAMINE HCL 50 MG/ML VIAL IV ONE (00:10)
[2019-05-03] MEDS: IV NS 0.9% 1,000 ML BAG IV ONE (00:10)
[2019-05-03 00:16] LABS: ACETAMINOPHEN 0 ug/ml (10-30); ALANINE AMINOTRANSFERASE 64 U/L (12-78); ALBUMIN 4.3 g/dL (3.4-5.0); ALKALINE PHOSPHATASE 89 U/L (46-116); ASPARTATE AMINOTRANSFERASE 73 U/L (15-37); BILIRUBIN,DIRECT 0.2 mg/dL (0.0-0.2); BILIRUBIN,TOTAL 1.1 mg/dL (0.2-1.0); SALICYLATE 1.6 mg/dL (2.8-20.0); TOTAL PROTEIN, SERUM 8.1 g/dL (6.4-8.2)
[2019-05-03 00:17] LABS: ALCOHOL, BLOOD < 3 mg/dL (0-0)
--- NOTE | 2019-05-03 00:22 | NUR ---
PT UNABLE TO PROVIDE URINE SAMPLE AT THIS TIME, ER PA AWARE
--- NOTE | 2019-05-03 01:35 | NUR ---
PT UNABLE TO PROVIDE URINE SAMPLE AT THIS TIME. BRENDEN CHEN
--- NOTE | 2019-05-03 02:01 | NUR ---
PT UNABLE TO PROVIDE URINE SAMPLE AT THIS TIME. BRENDEN CHEN
--- NOTE | 2019-05-03 03:25 | NUR ---
URINE COLLECTED. 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
[2019-05-03 03:39] LABS: APPEARANCE,URINE Clear (CLEAR); BILIRUBIN,URINE Negative (NEGATIVE); BLOOD, URINE Negative Ery/uL (NEGATIVE); COLOR,URINE Yellow (YELLOW); KETONES,URINE Trace (NEGATIVE); LEUKOCYTE ESTERASE ,URINE Negative (NEGATIVE); NITRITE, URINE Negative (NEGATIVE); PROTEIN,URINE 30 mg/dl (NEGATIVE); UGLUCOSE Negative (NEGATIVE); UROBILINOGEN,URINE 0.2 EU/dL (0.2)
[2019-05-03 04:03] LABS: BACTERIA,URINE Few /HPF (None Seen); RBC,URINE 0-2 /HPF (0-2); SPERM,URINE Many /HPF (None Seen); SQUAMOUS EPITHELIAL CELL,UR Rare /HPF (None Seen)
--- NOTE | 2019-05-03 04:38 | NUR ---
SPOKE TO YI, INTAKE FROM [facility] ADMITTING MD REFUSED TO ADMIT D/T D[facility] AND WAS THERE FOR 9 DAYS.
--- NOTE | 2019-05-03 07:02 | NUR ---
PT IN BED SLEEPING .AROUSES EASILY. BREATHING EVENLY. WILL CONT TO MONITOR
--- NOTE | 2019-05-03 08:50 | NUR ---
CHESTER LEWIS AT BEDSIDE
--- NOTE | 2019-05-03 09:10 | NUR ---
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
[2019-05-03 09:11] VITALS: BP 120/72
--- NOTE | 2019-05-03 09:39 | NUR ---
Patient discharged to home in stable condition. Written and verbal after care instructions given. Patient verbalizes understanding of instruction.
== END 2019-05-03 09:37 | disposition home or self-care (01) ==
LOC: ER 23:15
DX: R45.851 Suicidal ideations (principal); F32.9 Major depressive disorder, single episode, unspecified; F20.9 Schizophrenia, unspecified; F15.90 Other stimulant use, unspecified, uncomplicated; F10.10 Alcohol abuse, uncomplicated; F17.200 Nicotine dependence, unspecified, uncomplicated; R45.1 Restlessness and agitation; R00.0 Tachycardia, unspecified; Y90.0 Blood alcohol level of less than 20 mg/100 ml; Z86.19 Personal history of other infectious and parasitic diseases; Z98.890 Other specified postprocedural states; Z88.1 Allergy status to other antibiotic agents; Z88.6 Allergy status to analgesic agent; Z60.2 Problems related to living alone
CPT/HCPCS: 36415; 80048; 80076; 80305; 80307; 80329; 81001; 85025; 96372; 96374; 96375; 99284; G0480; J1200; J2060; J3490; J7030; 81000-TC

== ENCOUNTER 2019-05-06 14:16 | Emergency (ER) | payer OTHER ==
[~2019-05-06] VITALS: Ht 172.7 cm; Wt 97.5 kg
[2019-05-06 14:48] VITALS: BP 103/78
--- NOTE | 2019-05-06 14:49 | NUR ---
""Im feeling Suicidal -run into traffic" PT AAOX4, -SOB, NAD NOTED, VSS, NAD NOTED. PT ON MONITOR, PENDING MD SHARP
[2019-05-06 15:06] LABS: BASOPHILS % (AUTO) 0.4 % (0.0-2.0); EOSINOPHILS % (AUTO) 3.2 % (0.0-6.0); HEMATOCRIT 41 % (39-51); HEMOGLOBIN 13.7 g/dL (13.5-17.5); LYMPHOCYTES # (AUTO) 2.4 /CMM (0.8-4.8); LYMPHOCYTES % (AUTO) 30.4 % (20.0-44.0); MEAN CORPUSCULAR HGB CONC 34 g/dl (31.0-36.0); MEAN CORPUSCULAR VOLUME 90 fL (80-96); MONOCYTES # (AUTO) 0.8 /CMM (0.1-1.30); MONOCYTES % (AUTO) 10.4 % (2.0-12.0); NEUTROPHILS # (AUTO) 4.4 /CMM (1.8-8.9); NEUTROPHILS % (AUTO) 55.6 % (43.0-81.0); PLATELET COUNT (AUTO) 259 /CMM (150-450); RED BLOOD CELL COUNT(AUTO) 4.49 MIL/uL (4.5-6.0); WHITE BLOOD COUNT (AUTO) 7.9 K/uL (4.3-11.0)
[2019-05-06 15:12] LABS: CALCIUM, SERUM 8.2 mg/dL (8.5-10.1); CARBON DIOXIDE 27 mmol/L (21-32); CHLORIDE 105 mmol/L (98-107); GLUCOSE 113 mg/dL (74-106); POTASSIUM 3.4 mmol/L (3.5-5.1); SODIUM SERUM 141 mmol/L (136-145); UREA NITROGEN, BLOOD 5 mg/dL (7-18)
[2019-05-06 15:25] LABS: ALANINE AMINOTRANSFERASE 51 U/L (12-78); ALBUMIN 3.5 g/dL (3.4-5.0); ALKALINE PHOSPHATASE 80 U/L (46-116); ASPARTATE AMINOTRANSFERASE 26 U/L (15-37); BILIRUBIN,DIRECT 0.1 mg/dL (0.0-0.2); BILIRUBIN,TOTAL 0.3 mg/dL (0.2-1.0); TOTAL PROTEIN, SERUM 6.8 g/dL (6.4-8.2)
[2019-05-06 15:27] LABS: ACETAMINOPHEN 0 ug/ml (10-30); ALCOHOL, BLOOD < 3 mg/dL (0-0); SALICYLATE 2.7 mg/dL (2.8-20.0)
[2019-05-06 15:38] LABS: APPEARANCE,URINE Clear (CLEAR); BILIRUBIN,URINE Negative (NEGATIVE); BLOOD, URINE Negative Ery/uL (NEGATIVE); COLOR,URINE Yellow (YELLOW); KETONES,URINE Negative (NEGATIVE); LEUKOCYTE ESTERASE ,URINE Negative (NEGATIVE); NITRITE, URINE Negative (NEGATIVE); PH,URINE 5.5 (5.0-8.0); PROTEIN,URINE Negative (NEGATIVE); UGLUCOSE Negative (NEGATIVE); UROBILINOGEN,URINE 0.2 EU/dL (0.2)
--- NOTE | 2019-05-06 18:49 | NUR ---
PER PARVEZ RN (CRISIS TEAM) CALL [facility] ([facility]) AT 1945 @ [phone].
--- NOTE | 2019-05-06 19:50 | NUR ---
PER ROSALIE AT INTAKE, POTASSIUM ORDER NEEDED DUE TO 3.4 POTASSIUM LEVEL. LAZARO WILCOX
[2019-05-06] MEDS ORDERED: POTASSIUM CHLORIDE 20 MEQ TAB.PRT.SR PO ONE ×2 (20:00→20:05)
--- NOTE | 2019-05-06 20:11 | NUR ---
ORDER FAXED TO ROSAL[facility] AT INTAKE FOR POTASSIUM. THEY WILL CALL BACK WITH ACCEPTING INFORMATION
--- NOTE | 2019-05-06 20:43 | NUR ---
PT ACCEPTED TO [facility] ACCEPTING MD: DR. GIBBS NUMBER FOR REPORT: [phone] BED ASSIGNMENT: [id number]
--- NOTE | 2019-05-06 21:03 | NUR ---
[facility]66 ETA
--- NOTE | 2019-05-06 21:45 | NUR ---
REPORT GIVEN TO NATHAN SHIN FOR [facility] NURSE AT [facility]
--- NOTE | 2019-05-06 22:53 | NUR ---
UPDATED ETA 8163
--- NOTE | 2019-05-06 23:35 | NUR ---
GAVE REPORT TO [facility] FOR TRANSPORTATION [facility]
== END 2019-05-06 23:35 ==
LOC: ER 14:16
DX: R45.851 Suicidal ideations (principal); F32.9 Major depressive disorder, single episode, unspecified; F20.9 Schizophrenia, unspecified; F10.10 Alcohol abuse, uncomplicated; F17.200 Nicotine dependence, unspecified, uncomplicated; F13.10 Sedative, hypnotic or anxiolytic abuse, uncomplicated; F15.10 Other stimulant abuse, uncomplicated; Y90.0 Blood alcohol level of less than 20 mg/100 ml; Z86.19 Personal history of other infectious and parasitic diseases; Z98.890 Other specified postprocedural states; Z88.1 Allergy status to other antibiotic agents; Z88.6 Allergy status to analgesic agent; Z60.2 Problems related to living alone
CPT/HCPCS: 36415; 80048; 80076; 80305; 80307; 80329; 81001; 85025; 99285; G0480; 81000-TC

== ENCOUNTER 2019-05-22 15:10 | Emergency (ER) | payer OTHER ==
[~2019-05-22] VITALS: Ht 175.3 cm; Wt 108.0 kg
--- NOTE | 2019-05-22 15:30 | NUR ---
C/O RLQ PAIN ON AND OFF x 1 MONTH. PATIENT A/OX4, NO DISTRESS NOTED. C/O ABDOMINAL PAIN. ATTACHED TO THE AROMATHERAPIST.
[2019-05-22] MEDS ORDERED: ONDANSETRON HCL/PF 4 MG/2 ML VIAL ONE (15:50)
[2019-05-22] MEDS ORDERED: MORPHINE SULFATE INJ 4 MG/ML DISP.SYRIN ONE (15:50)
--- NOTE | 2019-05-22 15:55 | NUR ---
BLOOD DRAWN AND SENT TO LAB
[2019-05-22 15:58] LABS: BASOPHILS % (AUTO) 0.5 % (0.0-2.0); EOSINOPHILS % (AUTO) 2.1 % (0.0-6.0); HEMATOCRIT 44 % (39-51); LYMPHOCYTES % (AUTO) 24.3 % (20.0-44.0); MEAN CORPUSCULAR HGB CONC 34 g/dl (31.0-36.0); MEAN CORPUSCULAR VOLUME 90 fL (80-96); MONOCYTES # (AUTO) 0.8 /CMM (0.1-1.30); MONOCYTES % (AUTO) 9.2 % (2.0-12.0); NEUTROPHILS # (AUTO) 5.3 /CMM (1.8-8.9); NEUTROPHILS % (AUTO) 63.9 % (43.0-81.0); PLATELET COUNT (AUTO) 251 /CMM (150-450); RED BLOOD CELL COUNT(AUTO) 4.91 MIL/uL (4.5-6.0); WHITE BLOOD COUNT (AUTO) 8.3 K/uL (4.3-11.0)
[2019-05-22] MEDS ORDERED: IV NS 0.9% 1,000 ML BAG IV ONE (16:00)
[2019-05-22] MEDS ORDERED: MORPHINE SULFATE INJ 2 MG/ML DISP.SYRIN IV ONE (16:00)
[2019-05-22] MEDS ORDERED: ONDANSETRON HCL/PF 4 MG/2 ML VIAL IVP ONE (16:00)
[2019-05-22 16:09] LABS: CALCIUM, SERUM 8.9 mg/dL (8.5-10.1); CARBON DIOXIDE 27 mmol/L (21-32); CHLORIDE 103 mmol/L (98-107); CREATININE 1.2 mg/dL (0.6-1.3); GLUCOSE 90 mg/dL (74-106); POTASSIUM 3.9 mmol/L (3.5-5.1); SODIUM SERUM 140 mmol/L (136-145); UREA NITROGEN, BLOOD 18 mg/dL (7-18)
[2019-05-22 16:15] LABS: ACETAMINOPHEN 0 ug/ml (10-30); ALANINE AMINOTRANSFERASE 54 U/L (12-78); ALBUMIN 3.8 g/dL (3.4-5.0); ALCOHOL, BLOOD < 3 mg/dL (0-0); ALKALINE PHOSPHATASE 122 U/L (46-116); ASPARTATE AMINOTRANSFERASE 20 U/L (15-37); BILIRUBIN,DIRECT 0.1 mg/dL (0.0-0.2); BILIRUBIN,TOTAL 0.1 mg/dL (0.2-1.0); SALICYLATE 2.5 mg/dL (2.8-20.0); TOTAL PROTEIN, SERUM 7.2 g/dL (6.4-8.2)
[2019-05-22 16:47] LABS: APPEARANCE,URINE Clear (CLEAR); BILIRUBIN,URINE Negative (NEGATIVE); BLOOD, URINE Negative Ery/uL (NEGATIVE); COLOR,URINE Yellow (YELLOW); KETONES,URINE Negative (NEGATIVE); LEUKOCYTE ESTERASE ,URINE Negative (NEGATIVE); NITRITE, URINE Negative (NEGATIVE); PH,URINE 5.5 (5.0-8.0); PROTEIN,URINE Negative (NEGATIVE); UGLUCOSE Negative (NEGATIVE); UROBILINOGEN,URINE 0.2 EU/dL (0.2)
--- NOTE | 2019-05-22 17:46 | NUR ---
CALLED JULIAN SHIN FOR CRISIS TEAM CONSULT. ETA 1 HOUR
--- NOTE | 2019-05-22 18:24 | NUR ---
CALLED [facility] INTAKE [facility], NO BEDS AVAILABLE AT THIS TIME.
[2019-05-22] MEDS ORDERED: ALPRAZOLAM 0.5 MG TABLET ONE (18:29)
[2019-05-22] MEDS ORDERED: buPROPion 75 MG TABLET PO ONE (18:30)
[2019-05-22] MEDS ORDERED: ALPRAZOLAM 0.5 MG TABLET PO ONE (18:30)
--- NOTE | 2019-05-22 19:18 | NUR ---
PATIENT IN STABLE CONDITION. A/OX3, NO DISTRESS NOTED. ENDORSED TO ARABELLA SHIN FOR [facility].
--- NOTE | 2019-05-22 19:34 | NUR ---
IV removed. Catheter intact and site benign. Pressure and 4x4 applied to site. No bleeding noted.
--- NOTE | 2019-05-22 20:00 | NUR ---
Patient is resting comfortably in bed with eyes closed. Easily aroused. VSS
[2019-05-22] MEDS ORDERED: ACETAMINOPHEN 325 MG TABLET PO ONE (21:00)
[2019-05-22] MEDS ORDERED: ACETAMINOPHEN 325 MG TABLET ONE (21:33)
--- NOTE | 2019-05-23 07:17 | NUR ---
pt remained stable during the shift, ambulatory w/ steady gaits. VSS.
--- NOTE | 2019-05-23 08:24 | NUR ---
SPOKED TO JAVIER OF [facility] INTAKE, WILL CALL BACK FOR AVAILABLE BED.
[2019-05-23] MEDS ORDERED: ALPRAZOLAM 0.5 MG TABLET ONE (08:29)
[2019-05-23] MEDS ORDERED: ALPRAZOLAM 0.5 MG TABLET PO ONE (08:30)
--- NOTE | 2019-05-23 08:40 | NUR ---
CHESTER FORRESTER AT BEDSIDE FOR EVAL.
--- NOTE | 2019-05-23 08:48 | NUR ---
Social service consult for possible placement at [facility]. Pt. is a 48 year old male who came to [facility] with multiple complaints. SW met with pt. bedside. Pt. is alert and oriented x 4. Pt. is ambulatory. SW is familiar with pt. from several ED visits. Pt. would like his prescription for Xanax. Pt. is not suicidal or homicidal. Denies visual/auditory hallucinations at this time. Dr. Yu spoke with the pt. and informed him to go to his psychiatrist or primary care physician. Pt. stated he will go to Dr. Felix Byrd, his PCP to get his prescription. Pt. declined detention placement. Pt. was given the following resources: [facility] located at [address] [facility] ; [facility], [address], [place] ; [employer] [place], [address] [facility] [place] ; [facility] Homeless Resource Directory which includes food stamps, transitional housing, showers and hot meals etc; Mental Health clinics such as [facility] ; [facility] ; Health clinics;[facility] and Alcohol treatment centers such as [facility], ; [facility] Substance Abuse Hotline and [facility] . Homeless Patient waiver form was signed by the pt. and placed in pt's chart. Pt. was provided with a TAP card to get to his doctor's office. NO other social service needs are requested at this time.
[2019-05-23 08:52] VITALS: BP 127/71
--- NOTE | 2019-05-23 08:52 | NUR ---
Patient given written and verbal discharge instructions. Patient verbalizes understanding of instructions. Patient is ambulatory with steady gait. Patient given list of available shelters in surrounding area.
== END 2019-05-23 08:54 | disposition home or self-care (01) ==
LOC: ER 15:14
DX: R10.11 Right upper quadrant pain (principal); F28 Other psychotic disorder not due to a substance or known physiological condition; F32.9 Major depressive disorder, single episode, unspecified; F20.9 Schizophrenia, unspecified; F98.8 Other specified behavioral and emotional disorders with onset usually occurring in childhood and adolescence; F17.200 Nicotine dependence, unspecified, uncomplicated; Z98.890 Other specified postprocedural states; Z88.1 Allergy status to other antibiotic agents; Z88.6 Allergy status to analgesic agent; Z60.2 Problems related to living alone
CPT/HCPCS: 36415; 74176; 80048; 80076; 80305; 80307; 80329; 81001; 85025; 96374; 96375; 99284; G0480; J2270; J2405; J7030; 81000-TC

== ENCOUNTER 2019-06-02 12:58 | Emergency (ER) | payer OTHER ==
[~2019-06-02] VITALS: Ht 175.3 cm; Wt 108.9 kg
--- NOTE | 2019-06-02 13:25 | NUR ---
C/O FEELING SUICIDAL,NO PLAN AT THIS TIME, STS, HE'S BEEN TO [facility] AND WOULD LIKE TO GO THERE VOLUNTARILY FOR ADMISSION. PT AAOX4, VSS. DENIES ANY OTHER DISCOMFORT. CALM & COOPERATIVE. DINHTER @ BS & WILL CONT TO MONITOR.
[2019-06-02 13:41] LABS: BASOPHILS % (AUTO) 0.4 % (0.0-2.0); EOSINOPHILS % (AUTO) 1.7 % (0.0-6.0); HEMATOCRIT 42 % (39-51); HEMOGLOBIN 14.6 g/dL (13.5-17.5); LYMPHOCYTES # (AUTO) 1.7 /CMM (0.8-4.8); LYMPHOCYTES % (AUTO) 23.8 % (20.0-44.0); MEAN CORPUSCULAR HGB CONC 35 g/dl (31.0-36.0); MEAN CORPUSCULAR VOLUME 90 fL (80-96); MONOCYTES # (AUTO) 0.8 /CMM (0.1-1.30); MONOCYTES % (AUTO) 10.8 % (2.0-12.0); NEUTROPHILS # (AUTO) 4.6 /CMM (1.8-8.9); NEUTROPHILS % (AUTO) 63.3 % (43.0-81.0); PLATELET COUNT (AUTO) 256 /CMM (150-450); RED BLOOD CELL COUNT(AUTO) 4.74 MIL/uL (4.5-6.0); WHITE BLOOD COUNT (AUTO) 7.3 K/uL (4.3-11.0)
[2019-06-02 14:09] LABS: CALCIUM, SERUM 8.6 mg/dL (8.5-10.1); CARBON DIOXIDE 24 mmol/L (21-32); CHLORIDE 105 mmol/L (98-107); GLUCOSE 107 mg/dL (74-106); POTASSIUM 3.7 mmol/L (3.5-5.1); SODIUM SERUM 141 mmol/L (136-145); UREA NITROGEN, BLOOD 13 mg/dL (7-18)
[2019-06-02 14:24] LABS: ALANINE AMINOTRANSFERASE 68 U/L (12-78); ALBUMIN 3.8 g/dL (3.4-5.0); ALCOHOL, BLOOD 38 mg/dL (0-0); ALKALINE PHOSPHATASE 90 U/L (46-116); ASPARTATE AMINOTRANSFERASE 37 U/L (15-37); BILIRUBIN,DIRECT 0.1 mg/dL (0.0-0.2); BILIRUBIN,TOTAL 0.5 mg/dL (0.2-1.0); TOTAL PROTEIN, SERUM 7.4 g/dL (6.4-8.2)
[2019-06-02 14:30] LABS: SALICYLATE 1.9 mg/dL (2.8-20.0)
[2019-06-02 14:31] LABS: ACETAMINOPHEN < 3 ug/ml (10-30)
--- NOTE | 2019-06-02 15:01 | NUR ---
CALLED [facility] FOR BED. NO BEDS AVAILABLE AT THE MOMENT. FAXED CLINICALS.
--- NOTE | 2019-06-02 15:39 | NUR ---
Social service consult requested by Lalo Hale for homelessness and suicidal ideations. Pt. is a 48 year old male who came to [facility] stating he can't sleep and having suicidal ideations. USAMA met with pt. bedside. SW is very familiar with the pt. from several ED visits, with the last visit on 05/22/19. Pt. is alert and oriented x 3. Pt. had a t-shirt covering his face the entire time of the assessment. Pt. is homeless and says he has been homeless "forever." Pt. kept mumbling answers and SW had to keep asking pt. to repeat what he said. Pt. initially was suicidal with no plan but when SW inquire if he had a plan, he informed SW that his plan is to " run into traffic." Pt. stated he was discharged from [facility] yesterday. Pt. drinks alcohol and drink of choice is Nataliia. Pt. stated he drank Nataliia this morning. Pt. usually comes to ED requesting for medication refill and is always informed to go to his doctor Dr. Felix Byrd to get his medication refills. Per ED [facility], clinicals were faxed to [facility] intake at and currently there are no beds available. USAMA informed CRN Gener that pt. does not require a crisis team evaluation at this time since pt. is willing to go voluntary to [facility].
--- NOTE | 2019-06-02 16:00 | NUR ---
Patient is resting comfortably in bed with eyes closed. Easily aroused. VSS
[2019-06-02 16:06] LABS: APPEARANCE,URINE Clear (CLEAR); BILIRUBIN,URINE Negative (NEGATIVE); BLOOD, URINE Negative Ery/uL (NEGATIVE); COLOR,URINE Yellow (YELLOW); KETONES,URINE Negative (NEGATIVE); LEUKOCYTE ESTERASE ,URINE Negative (NEGATIVE); NITRITE, URINE Negative (NEGATIVE); PH,URINE 7.5 (5.0-8.0); PROTEIN,URINE Negative (NEGATIVE); UGLUCOSE Negative (NEGATIVE)
[2019-06-02 16:17] LABS: BACTERIA,URINE Few /HPF (None Seen); RBC,URINE 0-2 /HPF (0-2); SQUAMOUS EPITHELIAL CELL,UR Few /HPF (None Seen); WBC,URINE 0-2 /HPF (0-3)
[2019-06-02] MEDS ORDERED: LORAZEPAM 1 MG TABLET PO ONE (16:30)
--- NOTE | 2019-06-02 16:37 | NUR ---
PT ACCEPTED AT [facility]. NUMBER FOR REPORT IS . NURSE IS MARILUZ.
--- NOTE | 2019-06-02 16:37 | NUR ---
USAMA contacted Rodrick at [facility] to inquire if there are beds available since clinicals were faxed by [facility] in ED. Rodrick informed USAMA he will check into it and call back. Addendum: 06/02/19 at 1641 by CHESTER FORRESTER USAMA received a call back from Rodrick, stating pt. is accepted and they will be calling ED for report.
[2019-06-02] MEDS ORDERED: ALPRAZOLAM 0.5 MG TABLET ONE (17:00)
[2019-06-02] MEDS ORDERED: ALPRAZOLAM 0.5 MG TABLET PO ONE (17:00)
--- NOTE | 2019-06-02 18:24 | NUR ---
REPORT GIVEN TO ALEIDA MCGRAW @ [facility]
--- NOTE | 2019-06-02 19:29 | NUR ---
CALLED [facility] FOR TRANSPORT. 2014 FOR PICKUP. TRIP NUMBER [phone].
[2019-06-02 20:21] VITALS: BP 120/78
== END 2019-06-02 20:32 ==
LOC: ER 12:58
DX: R45.851 Suicidal ideations (principal); F17.200 Nicotine dependence, unspecified, uncomplicated; Z88.1 Allergy status to other antibiotic agents; Z86.19 Personal history of other infectious and parasitic diseases; Z60.2 Problems related to living alone; Z98.890 Other specified postprocedural states; Z88.6 Allergy status to analgesic agent
CPT/HCPCS: 36415; 80048; 80076; 80305; 80307; 80329; 81001; 85025; 99285; G0480; 81000-TC

== ENCOUNTER 2019-06-15 20:01 | Emergency (ER) | payer OTHER ==
[~2019-06-15] VITALS: Ht 170.2 cm; Wt 106.2 kg
--- NOTE | 2019-06-15 20:06 | NUR ---
CALLED PT FOR TRIAGE, NO ANSWER.
--- NOTE | 2019-06-15 20:15 | NUR ---
TO ER BED 14 AMBULATORY C/O SUICIDAL THOUGHTS. "I WANT TO BLOW UP MY HEAD OR SOMETHING". ANXIETY. PT REPORTS METH USE 3 DAYS AGO. PT AAOX4 CALM AND COOPERATIVE, NO ACUTE DISTRESS NOTED, RESP EVEN AND UNLABORED. URIND SAMPLE COLLECTED. PT PLACED ON HOSPITAL GOWN, ALL BELINGINGS BAGGED AND PLACED IN THE LOCKER ROOM. SITTER AT BEDSIDE FOR PT SAFETY.
--- NOTE | 2019-06-15 20:47 | NUR ---
FIELD TECHNICAL SPECIALIST AT BEDSIDE FOR BLOOD DRAW.
[2019-06-15 20:55] LABS: BASOPHILS % (AUTO) 0.4 % (0.0-2.0); HEMATOCRIT 43 % (39-51); HEMOGLOBIN 14.7 g/dL (13.5-17.5); LYMPHOCYTES # (AUTO) 2.4 /CMM (0.8-4.8); LYMPHOCYTES % (AUTO) 30.5 % (20.0-44.0); MEAN CORPUSCULAR HGB CONC 35 g/dl (31.0-36.0); MEAN CORPUSCULAR VOLUME 89 fL (80-96); MONOCYTES # (AUTO) 0.8 /CMM (0.1-1.30); MONOCYTES % (AUTO) 9.8 % (2.0-12.0); NEUTROPHILS # (AUTO) 4.5 /CMM (1.8-8.9); NEUTROPHILS % (AUTO) 56.3 % (43.0-81.0); PLATELET COUNT (AUTO) 311 /CMM (150-450); RED BLOOD CELL COUNT(AUTO) 4.78 MIL/uL (4.5-6.0)
[2019-06-15 21:02] LABS: CALCIUM, SERUM 9.2 mg/dL (8.5-10.1); CARBON DIOXIDE 30 mmol/L (21-32); CHLORIDE 100 mmol/L (98-107); CREATININE 1.1 mg/dL (0.6-1.3); GLUCOSE 128 mg/dL (74-106); POTASSIUM 3.7 mmol/L (3.5-5.1); SODIUM SERUM 137 mmol/L (136-145); UREA NITROGEN, BLOOD 16 mg/dL (7-18)
[2019-06-15 21:08] LABS: ACETAMINOPHEN 0 ug/ml (10-30); ALANINE AMINOTRANSFERASE 38 U/L (12-78); ALBUMIN 3.7 g/dL (3.4-5.0); ALCOHOL, BLOOD < 3 mg/dL (0-0); ALKALINE PHOSPHATASE 100 U/L (46-116); ASPARTATE AMINOTRANSFERASE 18 U/L (15-37); BILIRUBIN,DIRECT 0.1 mg/dL (0.0-0.2); BILIRUBIN,TOTAL 0.3 mg/dL (0.2-1.0); SALICYLATE 2.4 mg/dL (2.8-20.0); TOTAL PROTEIN, SERUM 7.1 g/dL (6.4-8.2)
[2019-06-15 21:37] LABS: APPEARANCE,URINE Clear (CLEAR); BILIRUBIN,URINE Negative (NEGATIVE); BLOOD, URINE Negative Ery/uL (NEGATIVE); COLOR,URINE Yellow (YELLOW); KETONES,URINE Negative (NEGATIVE); LEUKOCYTE ESTERASE ,URINE Negative (NEGATIVE); NITRITE, URINE Negative (NEGATIVE); PH,URINE 5.5 (5.0-8.0); PROTEIN,URINE Negative (NEGATIVE); UGLUCOSE Negative (NEGATIVE); UROBILINOGEN,URINE 0.2 EU/dL (0.2)
[2019-06-15] MEDS ORDERED: OLANZAPINE 5 MG TABLET PO ONE (22:00)
[2019-06-15] MEDS ORDERED: OLANZAPINE 5 MG TABLET ONE (22:04)
--- NOTE | 2019-06-15 22:09 | NUR ---
PT MEDICATED ORDERED, LYING IN BED W/ RESP EVEN & UNLABORED, ABLE TO REPOSITION SELF IN BED, CALM AND COOPERATIVE, REPORT FEELING ANXIOUS REQUESTING FOR ATIVAN 2 MG FOR ANXIETY. WILL NOTIFY
--- NOTE | 2019-06-15 22:18 | NUR ---
CALLED [facility]. WAS INFORMED THEY WOULD LOOK OVER FAX INFO AND CALL BACK REGARDING BED AVAILIBILITY AT [facility]
--- NOTE | 2019-06-15 22:38 | NUR ---
S/W AISLINN AT [facility] REPORT NO BEDS AVAILABLE AT THIS TIME, BUT WILL HAVE BEDS AVAILABLE IN THE MORNING. NOTIFIED.
[2019-06-15] MEDS ORDERED: LORAZEPAM 1 MG TABLET ONE (22:51)
--- NOTE | 2019-06-15 22:55 | NUR ---
PT MEDICATED ORDERED. SANDWICH AND JUICE PROVIDED. PT SITTING UP IN BED EATING W/ NO ASPIRATION OF FOOD NOTED. BED LOW TO GROUND. WILL CONTINUE MONITORING. AWAITING PLACEMENT FOR FURTHER PSYCHIATRIC TX.
[2019-06-15] MEDS ORDERED: LORAZEPAM 1 MG TABLET PO ONE (23:00)
--- NOTE | 2019-06-15 23:25 | NUR ---
PT ACCEPTED TO [facility] ACCEPTING MD: DR. MARTINEZ/DR. GIL NUMBER FOR REPORT: [phone]
--- NOTE | 2019-06-15 23:33 | NUR ---
[id number] CALLED FOR S AMBULANCE TRANSPORT TO [facility]. WILL C/B W/ ETA INFO.
--- NOTE | 2019-06-15 23:34 | NUR ---
GAVE REPORT TO ANAMARIA SHIN FROM [facility] FOR [facility]
--- NOTE | 2019-06-15 23:56 | NUR ---
[facility] ETA 0048
--- NOTE | 2019-06-16 00:26 | NUR ---
PT ASLEEP IN BED ON RT SIDE, ABLE TO REPOSITION SELF IN BED W/ RESP EVEN & UNLABORED, EASILY AROUSABLE W/ NO ACUTE DISTRESS NOTED. ON CONTINUOUS MONITORING. AWAITING TRANSPORT TO [facility].
--- NOTE | 2019-06-16 00:44 | NUR ---
GAVE REPORT TO [facility] Marie FOR TRANSPORTATION [facility]
[2019-06-16 00:45] VITALS: BP 121/68
== END 2019-06-16 00:48 | disposition short-term general hospital (02) ==
LOC: ER 20:05
DX: R45.851 Suicidal ideations (principal); F15.10 Other stimulant abuse, uncomplicated; F17.200 Nicotine dependence, unspecified, uncomplicated; Z86.19 Personal history of other infectious and parasitic diseases; Z98.890 Other specified postprocedural states; Z88.1 Allergy status to other antibiotic agents; Z88.6 Allergy status to analgesic agent; Z60.2 Problems related to living alone
CPT/HCPCS: 36415; 80048; 80076; 80305; 80307; 80329; 81001; 85025; 99285; G0480; 81000-TC

== ENCOUNTER 2019-07-09 20:33 | Emergency (ER) | payer OTHER ==
[~2019-07-09] VITALS: Ht 170.2 cm; Wt 99.8 kg
--- NOTE | 2019-07-09 20:50 | NUR ---
PT AAOX4. AMBULATORY. PT C/O "I HAVEN'T HAD MY MEDS FOR COUPLE DAYS, PARANOIA". SUICIDAL WITH PLAN. DENIES HI. -PAIN. ADMITS TO ALCOHOL AND METH USE TODAY. BREATHING EVEN AND UNLABORED. PT PLACED ON MONITOR AND PULSE OX. NO ACUTE DISTRESS NOTED.
[2019-07-09] MEDS ORDERED: LORAZEPAM INJ 2 MG/ML VIAL ONE (21:08)
[2019-07-09 21:29] LABS: BASOPHILS # (AUTO) 0.1 /CMM (0.0-0.2); BASOPHILS % (AUTO) 0.8 % (0.0-2.0); EOSINOPHILS % (AUTO) 3.3 % (0.0-6.0); HEMATOCRIT 45 % (39-51); HEMOGLOBIN 15.2 g/dL (13.5-17.5); LYMPHOCYTES # (AUTO) 1.9 /CMM (0.8-4.8); LYMPHOCYTES % (AUTO) 22.5 % (20.0-44.0); MEAN CORPUSCULAR HGB CONC 34 g/dl (31.0-36.0); MEAN CORPUSCULAR VOLUME 91 fL (80-96); MONOCYTES # (AUTO) 1.1 /CMM (0.1-1.30); MONOCYTES % (AUTO) 12.7 % (2.0-12.0); NEUTROPHILS # (AUTO) 5.2 /CMM (1.8-8.9); NEUTROPHILS % (AUTO) 60.7 % (43.0-81.0); PLATELET COUNT (AUTO) 278 /CMM (150-450); RED BLOOD CELL COUNT(AUTO) 4.98 MIL/uL (4.5-6.0); WHITE BLOOD COUNT (AUTO) 8.5 K/uL (4.3-11.0)
[2019-07-09] MEDS ORDERED: LORAZEPAM INJ 2 MG/ML VIAL IM ONE (21:30)
--- NOTE | 2019-07-09 21:30 | NUR ---
Patient is resting comfortably in bed. Easily aroused. VSS
[2019-07-09 21:37] LABS: CALCIUM, SERUM 9.1 mg/dL (8.5-10.1); CARBON DIOXIDE 29 mmol/L (21-32); CHLORIDE 104 mmol/L (98-107); CREATININE 1.1 mg/dL (0.6-1.3); GLUCOSE 101 mg/dL (74-106); POTASSIUM 3.9 mmol/L (3.5-5.1); SODIUM SERUM 140 mmol/L (136-145); UREA NITROGEN, BLOOD 14 mg/dL (7-18)
[2019-07-09 21:43] LABS: ALANINE AMINOTRANSFERASE 65 U/L (12-78); ALBUMIN 4.1 g/dL (3.4-5.0); ALCOHOL, BLOOD < 3 mg/dL (0-0); ALKALINE PHOSPHATASE 82 U/L (46-116); ASPARTATE AMINOTRANSFERASE 41 U/L (15-37); BILIRUBIN,DIRECT 0.2 mg/dL (0.0-0.2); BILIRUBIN,TOTAL 0.9 mg/dL (0.2-1.0); TOTAL PROTEIN, SERUM 7.6 g/dL (6.4-8.2)
[2019-07-09 21:49] LABS: ACETAMINOPHEN < 2 ug/ml (10-30); SALICYLATE 2.6 mg/dL (2.8-20.0)
--- NOTE | 2019-07-09 22:30 | NUR ---
URINE COLLECTED AND SENT TO LAB
--- NOTE | 2019-07-09 22:35 | NUR ---
Patient is resting comfortably in bed. Easily aroused. VSS.
[2019-07-09 22:38] LABS: APPEARANCE,URINE Clear (CLEAR); BILIRUBIN,URINE Negative (NEGATIVE); BLOOD, URINE Trace-lysed Ery/uL (NEGATIVE); COLOR,URINE Light yellow (YELLOW); KETONES,URINE Negative (NEGATIVE); LEUKOCYTE ESTERASE ,URINE Small (NEGATIVE); NITRITE, URINE Negative (NEGATIVE); PROTEIN,URINE Negative (NEGATIVE); UGLUCOSE Negative (NEGATIVE); UROBILINOGEN,URINE 0.2 EU/dL (0.2)
[2019-07-09 23:02] LABS: BACTERIA,URINE None seen /HPF (None Seen); RBC,URINE 0-2 /HPF (0-2); SQUAMOUS EPITHELIAL CELL,UR Rare /HPF (None Seen)
--- NOTE | 2019-07-10 00:03 | NUR ---
pt resting comfortably in bed. easily aroused. vss at this time. ambulatory to restroom. -acute distress noted
--- NOTE | 2019-07-10 02:16 | NUR ---
pt resting in bed comfortably. easily arousible. -sob -acute distress noted at this time.
--- NOTE | 2019-07-10 04:14 | NUR ---
Patient is resting comfortably in bed with eyes closed. Easily aroused. VSS at this time.
[2019-07-10] MEDS ORDERED: LORAZEPAM 0.5 MG TABLET PO ONE (05:30)
[2019-07-10] MEDS ORDERED: LORAZEPAM 0.5 MG TABLET ONE (05:32)
--- NOTE | 2019-07-10 05:35 | NUR ---
PER [facility] INTAKE, NO BED AVAILABLE AT THIS TIME. WILL FAX OVER CLINICAL INFORMATION
--- NOTE | 2019-07-10 06:48 | NUR ---
PT ACCEPTED TO [facility]. ACCEPTING MD: DR. STONE/DR. CASTRO
--- NOTE | 2019-07-10 06:50 | NUR ---
GAVE REPORT TO JUANA SHIN FOR [facility]
--- NOTE | 2019-07-10 06:57 | NUR ---
CALLED CALL THE CAR THE TRANSPORTATION. CONFIRMATION NUMBER [id number]. WILL CALL BACK WITH ETA Addendum: 07/10/19 at 0702 by GUADALUPE ETA 0900
--- NOTE | 2019-07-10 08:22 | NUR ---
patient asleep, in no distress, breathing evenly and unlabored. sitter at bedside for constant monitoring.
[2019-07-10 10:00] VITALS: BP 130/71
--- NOTE | 2019-07-10 10:00 | NUR ---
patient picked up by private ambulance going to [facility] in no distress. Denies any pain at this time.
== END 2019-07-10 11:42 ==
LOC: ER 20:36
DX: R45.851 Suicidal ideations (principal); F15.10 Other stimulant abuse, uncomplicated; F32.9 Major depressive disorder, single episode, unspecified; F20.9 Schizophrenia, unspecified; F10.10 Alcohol abuse, uncomplicated; F17.200 Nicotine dependence, unspecified, uncomplicated; F22 Delusional disorders; F41.9 Anxiety disorder, unspecified; Y90.0 Blood alcohol level of less than 20 mg/100 ml; Z86.19 Personal history of other infectious and parasitic diseases; Z98.890 Other specified postprocedural states; Z88.6 Allergy status to analgesic agent; Z88.1 Allergy status to other antibiotic agents; Z60.2 Problems related to living alone
CPT/HCPCS: 36415; 80048; 80076; 80305; 80307; 80329; 81001; 82962; 85025; 96372; 99285; G0480; J2060; 81000-TC

== ENCOUNTER 2019-07-30 12:31 | Emergency (ER) | payer OTHER ==
[~2019-07-30] VITALS: Ht 170.2 cm; Wt 97.1 kg
--- NOTE | 2019-07-30 12:45 | NUR ---
"Abdominal Pain "Having a a lot of abdominal pain every day." PT AAOX4, -SOB, NAD NOTED, VSS, PENDING MD SHARP
[2019-07-30 14:59] LABS: APPEARANCE,URINE Clear (CLEAR); BILIRUBIN,URINE Negative (NEGATIVE); BLOOD, URINE Negative Ery/uL (NEGATIVE); COLOR,URINE Yellow (YELLOW); KETONES,URINE Negative (NEGATIVE); LEUKOCYTE ESTERASE ,URINE Negative (NEGATIVE); NITRITE, URINE Negative (NEGATIVE); PROTEIN,URINE Negative (NEGATIVE); UGLUCOSE Negative (NEGATIVE); UROBILINOGEN,URINE 0.2 EU/dL (0.2)
[2019-07-30 15:01] LABS: BASOPHILS # (AUTO) 0.1 /CMM (0.0-0.2); BASOPHILS % (AUTO) 0.8 % (0.0-2.0); EOSINOPHILS % (AUTO) 2.4 % (0.0-6.0); HEMATOCRIT 44 % (39-51); LYMPHOCYTES # (AUTO) 2.1 /CMM (0.8-4.8); LYMPHOCYTES % (AUTO) 24.4 % (20.0-44.0); MEAN CORPUSCULAR HGB CONC 34 g/dl (31.0-36.0); MEAN CORPUSCULAR VOLUME 90 fL (80-96); MONOCYTES # (AUTO) 0.8 /CMM (0.1-1.30); MONOCYTES % (AUTO) 9.7 % (2.0-12.0); NEUTROPHILS # (AUTO) 5.3 /CMM (1.8-8.9); NEUTROPHILS % (AUTO) 62.7 % (43.0-81.0); PLATELET COUNT (AUTO) 248 /CMM (150-450); RED BLOOD CELL COUNT(AUTO) 4.92 MIL/uL (4.5-6.0); WHITE BLOOD COUNT (AUTO) 8.4 K/uL (4.3-11.0)
[2019-07-30 15:07] LABS: CALCIUM, SERUM 9.3 mg/dL (8.5-10.1); CARBON DIOXIDE 29 mmol/L (21-32); CHLORIDE 103 mmol/L (98-107); CREATININE 0.9 mg/dL (0.6-1.3); GLUCOSE 81 mg/dL (74-106); POTASSIUM 3.9 mmol/L (3.5-5.1); SODIUM SERUM 139 mmol/L (136-145); UREA NITROGEN, BLOOD 16 mg/dL (7-18)
[2019-07-30 15:12] LABS: ALANINE AMINOTRANSFERASE 54 U/L (12-78); ALBUMIN 3.9 g/dL (3.4-5.0); ALCOHOL, BLOOD < 3 mg/dL (0-0); ALKALINE PHOSPHATASE 87 U/L (46-116); ASPARTATE AMINOTRANSFERASE 23 U/L (15-37); BILIRUBIN,DIRECT 0.1 mg/dL (0.0-0.2); BILIRUBIN,TOTAL 0.3 mg/dL (0.2-1.0); TOTAL PROTEIN, SERUM 7.6 g/dL (6.4-8.2)
[2019-07-30 15:13] LABS: ACETAMINOPHEN < 2 ug/ml (10-30); SALICYLATE < 2.8 mg/dL (2.8-20.0)
[2019-07-30] MEDS ORDERED: LORAZEPAM 1 MG TABLET ONE (15:43)
[2019-07-30] MEDS: LORAZEPAM 1 MG TABLET PO ONE (15:51)
[2019-07-30] MEDS: ACETAMINOPHEN 325 MG TABLET PO ONE (17:00)
--- NOTE | 2019-07-30 18:50 | NUR ---
clinicals faxed to [facility]
--- NOTE | 2019-07-30 19:40 | NUR ---
spoke to [facility] intake, no beds available, will call if beds are available at [facility]. Pt has prior admission at [facility], accepting md is Dr. Sherman
--- NOTE | 2019-07-30 19:46 | NUR ---
waiting for marleni mensah bed dt pt only wants to go to [facility]
[2019-07-30] MEDS ORDERED: ACETAMINOPHEN 325 MG TABLET ONE (20:04)
--- NOTE | 2019-07-30 21:00 | NUR ---
pt in bed, awake, -sob, nad, vs updated
--- NOTE | 2019-07-31 00:03 | NUR ---
PT RESTING IN BED. AMBULATORY TO RESTROOM. GIVEN SNACKS AT THIS TIME . NO COMPLAINTS NOTED.
--- NOTE | 2019-07-31 02:44 | NUR ---
PT NOTED RESTING IN BED. NO COMPLAINTS AT THIS TIME. SITTER AT BEDSIDE.
[2019-07-31] MEDS ORDERED: diphenhydrAMINE HCL 50 MG CAPSULE ONE (03:02)
[2019-07-31] MEDS: diphenhydrAMINE HCL 25 MG CAPSULE PO ONE (03:05)
--- NOTE | 2019-07-31 05:06 | NUR ---
Patient is resting comfortably in bed with eyes closed. Easily aroused. VSS
--- NOTE | 2019-07-31 07:55 | NUR ---
Awaiting transfer to [facility] facility called intake [phone] they "will check for bed availability".
[2019-07-31] MEDS ORDERED: ALPRAZOLAM 0.5 MG TABLET ONE (08:25)
--- NOTE | 2019-07-31 08:30 | NUR ---
BREAKFAST TRAY PROVIDED, TOLERATED PO WELL.
--- NOTE | 2019-07-31 08:32 | NUR ---
received a call from Rodrick ([facility]) and said that they will accept the patient but not after 12 noon.
[2019-07-31] MEDS: ALPRAZOLAM 0.5 MG TABLET PO ONE (08:39)
[2019-07-31] MEDS: buPROPion 75 MG TABLET PO ONE (08:39)
--- NOTE | 2019-07-31 10:36 | NUR ---
Spoke to [phone] from Intake for report states "will call nursing food and nutrition supervisor [phone] to review clinicals". Will call back"
--- NOTE | 2019-07-31 10:51 | NUR ---
Received a call from Agnes ([facility]) patient can go to [address], number for report. Dr. Young.
--- NOTE | 2019-07-31 11:07 | NUR ---
ACCEPTING DR IS DR JUAN GUEVARA
--- NOTE | 2019-07-31 11:19 | NUR ---
Pt accepted to [facility] going to room 203. Report given to Samantha. Ambulance called for transport
--- NOTE | 2019-07-31 11:25 | NUR ---
Per Mack from [facility] transport eta is 11:50. Ticket # [id number]
[2019-07-31 13:00] VITALS: BP 139/90
--- NOTE | 2019-07-31 13:18 | NUR ---
PT TRANSPORTED TO [facility] VIA PRIVATE AMBULACNE, LEFT INS TABLE CONDTION, PT GOING ON VOLUNTARY BASIS, -SOB, NAD NOTED. REPORT GIVEN TO AMBULANCE STAFF
== END 2019-07-31 13:19 ==
LOC: ER 12:33
DX: F32.9 Major depressive disorder, single episode, unspecified (principal); F20.9 Schizophrenia, unspecified; F10.10 Alcohol abuse, uncomplicated; F17.200 Nicotine dependence, unspecified, uncomplicated; E66.9 Obesity, unspecified; Y90.0 Blood alcohol level of less than 20 mg/100 ml; Z68.33 Body mass index [BMI] 33.0-33.9, adult; Z59.0 Homelessness; Z98.890 Other specified postprocedural states; Z88.1 Allergy status to other antibiotic agents; Z88.6 Allergy status to analgesic agent; Z60.2 Problems related to living alone
CPT/HCPCS: 36415; 80048; 80076; 80305; 80307; 80329; 81001; 85025; 93005; 99285; G0480; Q0163; 81000-TC

== ENCOUNTER 2019-08-08 20:38 | Emergency (ER) | payer OTHER ==
[~2019-08-08] VITALS: Ht 170.2 cm; Wt 95.3 kg
--- NOTE | 2019-08-08 21:12 | NUR ---
BIBS FOR C/O H/A. " I THINK I'M HAVING SPINAL MENINGITIS", PT TO BED 5, PT AWAKE, ALERT, TALKING INCOHERENTLY, -SOB, NAD NOTED, PENDING MD SHARP
[2019-08-09] MEDS ORDERED: HYDROCODONE/APAP 10/325MG 1 EA TABLET PO ONE (00:30)
[2019-08-09] MEDS ORDERED: OLANZAPINE 10 MG VIAL IM ONE ×2 (00:30→00:50)
[2019-08-09] MEDS ORDERED: ONDANSETRON 4 MG TAB.RAPDIS SL ONE (00:30)
[2019-08-09 00:39] LABS: BASOPHILS % (AUTO) 0.5 % (0.0-2.0); EOSINOPHILS % (AUTO) 2.4 % (0.0-6.0); HEMATOCRIT 44 % (39-51); HEMOGLOBIN 15.1 g/dL (13.5-17.5); LYMPHOCYTES # (AUTO) 2.4 /CMM (0.8-4.8); LYMPHOCYTES % (AUTO) 26.2 % (20.0-44.0); MEAN CORPUSCULAR HGB CONC 34 g/dl (31.0-36.0); MEAN CORPUSCULAR VOLUME 89 fL (80-96); MONOCYTES # (AUTO) 1.1 /CMM (0.1-1.30); MONOCYTES % (AUTO) 12.5 % (2.0-12.0); NEUTROPHILS # (AUTO) 5.3 /CMM (1.8-8.9); NEUTROPHILS % (AUTO) 58.4 % (43.0-81.0); PLATELET COUNT (AUTO) 290 /CMM (150-450); RED BLOOD CELL COUNT(AUTO) 4.99 MIL/uL (4.5-6.0)
[2019-08-09 00:48] LABS: CALCIUM, SERUM 9.2 mg/dL (8.5-10.1); CARBON DIOXIDE 25 mmol/L (21-32); CHLORIDE 102 mmol/L (98-107); GLUCOSE 85 mg/dL (74-106); POTASSIUM 3.6 mmol/L (3.5-5.1); SODIUM SERUM 138 mmol/L (136-145); UREA NITROGEN, BLOOD 12 mg/dL (7-18)
[2019-08-09] MEDS ORDERED: HYDROCODONE/APAP 10/325MG 1 EA TABLET ONE (00:50)
[2019-08-09] MEDS ORDERED: ONDANSETRON 4 MG TAB.RAPDIS ONE (00:50)
[2019-08-09 00:53] LABS: ALANINE AMINOTRANSFERASE 72 U/L (12-78); ALCOHOL, BLOOD < 3 mg/dL (0-0); ALKALINE PHOSPHATASE 82 U/L (46-116); ASPARTATE AMINOTRANSFERASE 44 U/L (15-37); BILIRUBIN,DIRECT 0.2 mg/dL (0.0-0.2); BILIRUBIN,TOTAL 1.1 mg/dL (0.2-1.0); TOTAL PROTEIN, SERUM 7.6 g/dL (6.4-8.2)
[2019-08-09 01:00] LABS: ACETAMINOPHEN 0 ug/ml (10-30); SALICYLATE 2.3 mg/dL (2.8-20.0)
--- NOTE | 2019-08-09 02:56 | NUR ---
pt was provided w/ a urinal for urine collection
[2019-08-09 04:16] LABS: APPEARANCE,URINE Clear (CLEAR); BILIRUBIN,URINE SMALL (NEGATIVE); BLOOD, URINE Negative Ery/uL (NEGATIVE); COLOR,URINE Dark (YELLOW); KETONES,URINE 80 (NEGATIVE); LEUKOCYTE ESTERASE ,URINE Negative (NEGATIVE); NITRITE, URINE Negative (NEGATIVE); PH,URINE 5.5 (5.0-8.0); PROTEIN,URINE Trace mg/dl (NEGATIVE); UGLUCOSE Negative (NEGATIVE); UROBILINOGEN,URINE 0.2 EU/dL (0.2)
--- NOTE | 2019-08-09 05:15 | NUR ---
ATTEMPTED TO DISCHARGE PATIENT. PT STATES C/O SUICIDAL IDEATION WITH PLAN TO RUN INTO TRAFFIC. AWARE
--- NOTE | 2019-08-09 05:30 | NUR ---
PT'S BELONGINGS WERE REMOVED AND PLACED IN THE LOCKER FOR SAFE KEEPING.
[2019-08-09 05:48] LABS: BACTERIA,URINE Few /HPF (None Seen); SPERM,URINE Many /HPF (None Seen); SQUAMOUS EPITHELIAL CELL,UR Rare /HPF (None Seen); WBC,URINE 0-2 /HPF (0-3)
--- NOTE | 2019-08-09 08:54 | NUR ---
PT AWAKE ON BED, AAOX4, NOT IN RESPIRATORY DISTRESS, V/S STABLE, KEPT RESTED AND COMFORTABLE, WILL CONTINUE TO MONITOR, [facility]CH [facility].
--- NOTE | 2019-08-09 09:06 | NUR ---
CALLED NELA ([facility])
--- NOTE | 2019-08-09 09:24 | NUR ---
CALL BACK FROM AISLINN, NISHA,STILL REVIEWING CLINICALS
[2019-08-09] MEDS ORDERED: ALPRAZOLAM 0.5 MG TABLET PO ONE (09:30)
[2019-08-09] MEDS ORDERED: ALPRAZOLAM 0.5 MG TABLET ONE (10:07)
--- NOTE | 2019-08-09 10:36 | NUR ---
Social service consult requested by ER staff for suicidal ideation. Pt is a 48 year old male who was admitted to [facility] ER for suicidal ideation and medical clearance. USAMA met with pt at bedside. Pt was laying down in his bed. Pt looks disheveled. Pt is ambulatory and states that he is able to walk independently. Pt displayed difficulties communicating due to cognitive impairment with disorganized thoughts. Pt is alert and oriented X3. Pt denies homelessness, but states he "lives everywhere" and refuse to provide specific information of dwelling. Pt states that he does not have a support system at this time, and did not identify next of kin or an emergency contact. Pt has a history of psychiatric [depression, anxiety, ADD] and drug use [methamphetamine] . Pt admits suicidal ideation and states that he "wants to walk into traffic." Pt would like to voluntarily go to [facility] at [address] [place] [address]; [phone]. Pt states he has been a patient of this facility in the past. USAMA spoke with Rodrick, Electric Truck Operator [[phone]] at [facility], who states they have beds available and requests SW fax clinicals to [[phone]] for review. USAMA faxed over clinical packet to Rodrick Electric Truck Operator, to facilitate admission. No other services needed at this time. USAMA is available if needed.
--- NOTE | 2019-08-09 11:45 | NUR ---
PER ABELARDO FORRESTER PT IS ACCEPTED AT [facility] MD: NUMBER FOR REPORT: [phone]
--- NOTE | 2019-08-09 11:47 | NUR ---
Director Fundraising, Rosie, at [facility]; called SW to inform that pt was accepted at their [place] facility. ER made aware of this. Pt will be under the care of Dr. Roberts at [facility] and Charge Nurse Trav [ [phone]] at [place] facility. ER to arrange transportation to facility.
--- NOTE | 2019-08-09 11:49 | NUR ---
REPORT GIVEN TO [facility].
--- NOTE | 2019-08-09 12:03 | NUR ---
CALLED CALL THE CAR. WAS GIVEN INAPPROPRIATE OPTIONS FOR DRIVING THE PT. WILL CALL [facility]
--- NOTE | 2019-08-09 12:08 | NUR ---
CALLED [facility] [phone] OPTION 1 ETA 1345 PER BRAN
--- NOTE | 2019-08-09 12:14 | NUR ---
CALLED AM [facility] BACK TO GIVE BED IN [facility] IN VN BED 110 IN UNIT ONE.
--- NOTE | 2019-08-09 13:59 | NUR ---
REPORT GIVEN TO EMT FOR PT TRANSFER TP [facility].
[2019-08-09 14:35] VITALS: BP 128/58
== END 2019-08-09 14:36 ==
LOC: ER 20:40
DX: R45.851 Suicidal ideations (principal); F41.9 Anxiety disorder, unspecified; F15.10 Other stimulant abuse, uncomplicated; F17.200 Nicotine dependence, unspecified, uncomplicated; F98.8 Other specified behavioral and emotional disorders with onset usually occurring in childhood and adolescence; Z98.890 Other specified postprocedural states; Z88.1 Allergy status to other antibiotic agents; Z88.6 Allergy status to analgesic agent; Z60.2 Problems related to living alone
CPT/HCPCS: 36415; 80048; 80076; 80305; 80307; 80329; 81001; 85025; 96372; 99285; 99406; G0480; J3490; Q0162; 81000-TC

== ENCOUNTER 2019-08-24 01:09 | Emergency (ER) | payer OTHER ==
[~2019-08-24] VITALS: Ht 170.2 cm; Wt 104.3 kg
--- NOTE | 2019-08-24 01:30 | NUR ---
BIBS WALKED IN TO ER. TO ER BED 12. AAOX4. NO RESP DISTRESS NOTED. AMBULATORY. CAME FOR SUICIDAL IDEATION W/ PLAN TO RUN INTO TRAFFIC. PT IS SEEKING VOLLUNTARY INPATIENT PSYCHIATRIC CARE. PT IS ALSO C/O BILAT FOOT PAIN. PT IS STRIPPED OFF CLOTHING AND PLACED ON A GOWN W/ ALL BELONGINGS PLACED IN THE LOCKER LOCATED IN THE UTILITY ROOM. MD WAS AT BEDSIDE FOR EVAL. ORDERS RECEIVED NOTED AND CARRIED OUT. 1:1 SITTER AT BEDSIDE
[2019-08-24 02:22] LABS: BASOPHILS % (AUTO) 0.4 % (0.0-2.0); EOSINOPHILS % (AUTO) 2.5 % (0.0-6.0); HEMATOCRIT 42 % (39-51); HEMOGLOBIN 14.3 g/dL (13.5-17.5); LYMPHOCYTES # (AUTO) 2.1 /CMM (0.8-4.8); MEAN CORPUSCULAR HGB CONC 34 g/dl (31.0-36.0); MEAN CORPUSCULAR VOLUME 89 fL (80-96); MONOCYTES # (AUTO) 1.2 /CMM (0.1-1.30); NEUTROPHILS # (AUTO) 4.8 /CMM (1.8-8.9); NEUTROPHILS % (AUTO) 58.1 % (43.0-81.0); PLATELET COUNT (AUTO) 316 /CMM (150-450); RED BLOOD CELL COUNT(AUTO) 4.74 MIL/uL (4.5-6.0); WHITE BLOOD COUNT (AUTO) 8.3 K/uL (4.3-11.0)
[2019-08-24 02:27] LABS: CARBON DIOXIDE 32 mmol/L (21-32); CHLORIDE 102 mmol/L (98-107); GLUCOSE 105 mg/dL (74-106); POTASSIUM 3.5 mmol/L (3.5-5.1); SODIUM SERUM 140 mmol/L (136-145); UREA NITROGEN, BLOOD 19 mg/dL (7-18)
[2019-08-24 02:33] LABS: ACETAMINOPHEN 0 ug/ml (10-30); ALANINE AMINOTRANSFERASE 86 U/L (12-78); ALBUMIN 3.9 g/dL (3.4-5.0); ALCOHOL, BLOOD < 3 mg/dL (0-0); ALKALINE PHOSPHATASE 78 U/L (46-116); ASPARTATE AMINOTRANSFERASE 77 U/L (15-37); BILIRUBIN,DIRECT 0.1 mg/dL (0.0-0.2); BILIRUBIN,TOTAL 0.6 mg/dL (0.2-1.0); SALICYLATE 2.6 mg/dL (2.8-20.0); TOTAL PROTEIN, SERUM 7.4 g/dL (6.4-8.2)
--- NOTE | 2019-08-24 04:00 | NUR ---
PT STILL UNABLE TO GIVE URINE. AWARE.
--- NOTE | 2019-08-24 06:04 | NUR ---
pt in bed sleeping comfortably. no distress noted.
--- NOTE | 2019-08-24 06:05 | NUR ---
sitter at bedside
--- NOTE | 2019-08-24 06:40 | NUR ---
URINE SENT TO LAB
[2019-08-24 07:24] LABS: APPEARANCE,URINE CLEAR (CLEAR); BILIRUBIN,URINE NEGATIVE (NEGATIVE); BLOOD, URINE NEGATIVE Ery/uL (NEGATIVE); COLOR,URINE YELLOW (YELLOW); KETONES,URINE NEGATIVE (NEGATIVE); LEUKOCYTE ESTERASE ,URINE NEGATIVE (NEGATIVE); NITRITE, URINE NEGATIVE (NEGATIVE); PH,URINE 5.5 (5.0-8.0); PROTEIN,URINE NEGATIVE (NEGATIVE); UGLUCOSE NEGATIVE (NEGATIVE); UROBILINOGEN,URINE 0.2 EU/dL (0.2)
--- NOTE | 2019-08-24 09:15 | NUR ---
BREAKFAST TRAY PROVIDED. TOLERATED PO WELL
--- NOTE | 2019-08-24 10:22 | NUR ---
myranda arias called for eval
--- NOTE | 2019-08-24 11:56 | NUR ---
SS CONSULT: SS consult requested by Dr. Marquise Gill for +SI with plan to run into traffic. Upon SS consult, the pt. presented pacing the halls. The pt. is receptive to meeting with SW and remained cooperative throughout interview. The pt. appears disheveled and stated they are experiencing homelessness. The pt. is well known to this hospital from previous admissions. SW is unable to gather detailed information and Hx as pt. is responding to internal stimuli throughout interview. SW redirected pt. continuously with minimal success. Pt. is fixated on auditory hallucinations. Per patient, he has a history of Paranoid Schizophrenia and stated, I lost my bottle of Xanax recently. Per patient, he is currently experiencing SI with plan to run into traffic. Patient denies ETOH OR Drug abuse. offered voluntary placement at [facility]; . The patient was agreeable to plan. USAMA also provided the pt. with clothing, meal and a list of Echo Detention tube room supervisor Locations includin [facility]. [facility] [address] for [place] [phone] for after [facility] placement. USAMA provided he pt. a list of resources including: [facility] located at [[address] [facility] ; . A. [place], [address] [place] [address], [place] ]; [facility] [place], [[address] [facility] ]; [facility] Homeless Resource Directory which includes food stamps, transitional housing, showers and hot meals etc; Mental Health clinics such as [facility] ; [facility] Mental Health ; Health clinics;[facility] and Alcohol treatment centers such as [facility] [place] [facility] [place], ; [facility] Substance Abuse Hotline and [facility] . The patient expressed understanding. The patient signed homeless waiver form and it was filed in the patient's chart.
--- NOTE | 2019-08-24 12:01 | NUR ---
SCVN: [facility] [phone] and spoke to Nic. USAMA faxed referrals to [facility] [phone] per Bonner request. Per Nic, he will send out referrals to [facility] and [facility] and update USAMA when a bed becomes available. USAMA Will follow up as needed.
--- NOTE | 2019-08-24 13:37 | NUR ---
CALL FROM YOSHI LEWIS,ACCEPTED AT [facility] BY DR GIL AND DR DICKINSON,REPORT TO [phone]
--- NOTE | 2019-08-24 13:40 | NUR ---
PATIENT INFORMED AND AGREED TO GO TO [place] CALLED
--- NOTE | 2019-08-24 13:41 | NUR ---
Discharge Plan: USAMA received a call from Nic at [facility] stating that the pt. has been accepted to [facility] [[facility] [address]; [phone]]. Per Nic, a nurse to nurse report should be made by calling [phone] ext. [phone] and speaking to Audio Visual Design Engineer, Raissa. USAMA relayed above stated information to ER charge Nurse Terry. Terry to set up transportation for pt.
--- NOTE | 2019-08-24 13:44 | NUR ---
per Sandrita from [facility], eta is 1500. Trip # [id number]
[2019-08-24 14:53] VITALS: BP 138/68
--- NOTE | 2019-08-24 14:53 | NUR ---
Patient is resting comfortably in bed. Easily aroused. VSS.
--- NOTE | 2019-08-24 15:19 | NUR ---
UPDATED ETA FOR TRANPORT 1540 PER HARDY
--- NOTE | 2019-08-24 17:32 | NUR ---
REPORT GIVEN TO MACKENZIE AT [facility]. AWAITING TRANSFER.
== END 2019-08-24 17:42 ==
LOC: ER 01:13
DX: R45.851 Suicidal ideations (principal); F32.9 Major depressive disorder, single episode, unspecified; F20.9 Schizophrenia, unspecified; F10.10 Alcohol abuse, uncomplicated; F17.200 Nicotine dependence, unspecified, uncomplicated; Y90.0 Blood alcohol level of less than 20 mg/100 ml; Z86.19 Personal history of other infectious and parasitic diseases; Z98.890 Other specified postprocedural states; Z88.1 Allergy status to other antibiotic agents; Z88.6 Allergy status to analgesic agent; Z60.2 Problems related to living alone
CPT/HCPCS: 36415; 80048; 80076; 80305; 80307; 80329; 81001; 85025; 99285; G0480; 81000-TC

== ENCOUNTER 2019-09-05 18:54 | Emergency (ER) | payer OTHER ==
[~2019-09-05] VITALS: Ht 170.2 cm; Wt 99.8 kg
--- NOTE | 2019-09-05 19:58 | NUR ---
PT BIBS. SI - PLANS TO RUN INTO TRAFFIC. VOLUNTARY. METH USE 2 DAYS AGO. PT PLACED ON MONITOR AND PULSE OX.
--- NOTE | 2019-09-05 20:02 | NUR ---
PT BELONGINGS PLACED IN LOCKER. PT IN GOWN.
[2019-09-05 20:14] LABS: APPEARANCE,URINE Clear (CLEAR); BILIRUBIN,URINE Negative (NEGATIVE); BLOOD, URINE Negative Ery/uL (NEGATIVE); COLOR,URINE Yellow (YELLOW); KETONES,URINE Negative (NEGATIVE); LEUKOCYTE ESTERASE ,URINE Negative (NEGATIVE); NITRITE, URINE Negative (NEGATIVE); PH,URINE 5.5 (5.0-8.0); PROTEIN,URINE Negative (NEGATIVE); UGLUCOSE Negative (NEGATIVE); UROBILINOGEN,URINE 0.2 EU/dL (0.2)
--- NOTE | 2019-09-05 20:16 | NUR ---
ASSISTANT BOOKKEEPER AT BEDSIDE
[2019-09-05 20:26] LABS: BASOPHILS % (AUTO) 0.5 % (0.0-2.0); EOSINOPHILS % (AUTO) 3.4 % (0.0-6.0); HEMATOCRIT 43 % (39-51); HEMOGLOBIN 14.4 g/dL (13.5-17.5); LYMPHOCYTES # (AUTO) 2.4 /CMM (0.8-4.8); LYMPHOCYTES % (AUTO) 34.2 % (20.0-44.0); MEAN CORPUSCULAR HGB CONC 33 g/dl (31.0-36.0); MEAN CORPUSCULAR VOLUME 90 fL (80-96); MONOCYTES # (AUTO) 0.9 /CMM (0.1-1.30); MONOCYTES % (AUTO) 12.9 % (2.0-12.0); NEUTROPHILS # (AUTO) 3.4 /CMM (1.8-8.9); PLATELET COUNT (AUTO) 259 /CMM (150-450); RED BLOOD CELL COUNT(AUTO) 4.78 MIL/uL (4.5-6.0)
[2019-09-05 20:37] LABS: CARBON DIOXIDE 27 mmol/L (21-32); CHLORIDE 104 mmol/L (98-107); CREATININE 0.8 mg/dL (0.6-1.3); GLUCOSE 91 mg/dL (74-106); POTASSIUM 3.2 mmol/L (3.5-5.1); SODIUM SERUM 140 mmol/L (136-145); UREA NITROGEN, BLOOD 8 mg/dL (7-18)
--- NOTE | 2019-09-05 20:40 | NUR ---
PT EASILY AROUSED. VSS.
[2019-09-05 20:42] LABS: ACETAMINOPHEN < 2 ug/ml (10-30); ALANINE AMINOTRANSFERASE 56 U/L (12-78); ALBUMIN 3.6 g/dL (3.4-5.0); ALCOHOL, BLOOD < 3 mg/dL (0-0); ALKALINE PHOSPHATASE 92 U/L (46-116); ASPARTATE AMINOTRANSFERASE 27 U/L (15-37); BILIRUBIN,DIRECT 0.1 mg/dL (0.0-0.2); BILIRUBIN,TOTAL 0.5 mg/dL (0.2-1.0); SALICYLATE 2.1 mg/dL (2.8-20.0); TOTAL PROTEIN, SERUM 7.1 g/dL (6.4-8.2)
--- NOTE | 2019-09-05 21:10 | NUR ---
CLINICALS FAXED TO [facility] FOR VOLUNTARY PSYCH PLACEMENT. AWAITING CALL BACK WITH FURTHER INFORMATION
--- NOTE | 2019-09-05 21:51 | NUR ---
ACCPTED AT [facility] NUMBER FOR REPORT EXT. [address] MARTINEZ
--- NOTE | 2019-09-05 21:57 | NUR ---
[facility] ETA 8797
--- NOTE | 2019-09-05 22:06 | NUR ---
REPORT GIVEN TO DAISY SHIN FOR [facility]
--- NOTE | 2019-09-05 23:32 | NUR ---
Patient is resting comfortably in bed. Easily aroused. VSS.
--- NOTE | 2019-09-06 01:07 | NUR ---
Patient is resting comfortably in bed with eyes closed. Easily aroused. VSS.
--- NOTE | 2019-09-06 03:19 | NUR ---
CALLED [facility] TO FOLLOW UP WITH TRANSPORTATION. PER DEVAN FROM [facility], "DID NOT PROCESS TRANSPORTATION", NEXT AVAILABLE ETA 0700
--- NOTE | 2019-09-06 03:28 | NUR ---
Patient is resting comfortably in bed. Easily aroused. VSS.
--- NOTE | 2019-09-06 03:44 | NUR ---
Suzan aaron in [facility] - 09/06/19 at 0351 by GUADALUPE CALLED [facility] TO FOLLOW UP WITH TRANSPORTATION. PER [facility]AN [facility], "DID NOT PROCESS TRANSPORTATION", NEXT AVAILABLE ETA 0771
--- NOTE | 2019-09-06 04:47 | NUR ---
Patient is resting comfortably in bed with eyes closed. Easily aroused. VSS
--- NOTE | 2019-09-06 06:13 | NUR ---
PT IN BED SLEEPING. NO DISTRESS NOTED
[2019-09-06 07:08] VITALS: BP 115/60
--- NOTE | 2019-09-06 07:09 | NUR ---
GAVE REPORT TO [place] [address] FOR TRANSPORTATION [facility]
== END 2019-09-06 07:11 ==
LOC: ER 18:56
DX: R45.851 Suicidal ideations (principal); F15.20 Other stimulant dependence, uncomplicated; F20.9 Schizophrenia, unspecified; F32.9 Major depressive disorder, single episode, unspecified; F10.10 Alcohol abuse, uncomplicated; F17.200 Nicotine dependence, unspecified, uncomplicated; Y90.0 Blood alcohol level of less than 20 mg/100 ml; Z86.19 Personal history of other infectious and parasitic diseases; Z98.890 Other specified postprocedural states; Z88.1 Allergy status to other antibiotic agents; Z88.6 Allergy status to analgesic agent
CPT/HCPCS: 36415; 80048; 80076; 80305; 80307; 80329; 81001; 85025; 99285; G0480; 81000-TC

== ENCOUNTER 2019-09-14 22:36 | Emergency (ER) | payer OTHER ==
[~2019-09-14] VITALS: Ht 170.2 cm; Wt 99.8 kg
--- NOTE | 2019-09-15 00:30 | NUR ---
CALLED PT IN WAITING ROOM. NO RESPONSE.
--- NOTE | 2019-09-15 01:29 | NUR ---
PT C/C +SI X2 DAYS, PLAN TO RUN INTO TRAFFIC, -HI, +HEARING VOICES. SAFETY PRECAUTIONS IMPLEMENTED. SITTER AT BEDSIDE. VSS. NO ACUTE DISTRESS NOTED
[2019-09-15] MEDS ORDERED: QUETIAPINE FUMARATE 100 MG TABLET PO STA (02:15)
[2019-09-15] MEDS ORDERED: Fluoxetine 10 mg capsule PO STA (02:15)
[2019-09-15] MEDS ORDERED: QUETIAPINE FUMARATE 25 MG TABLET ONE (02:20)
[2019-09-15] MEDS ORDERED: Fluoxetine 10 mg capsule PO ONE (02:32)
[2019-09-15 02:33] LABS: BASOPHILS % (AUTO) 0.3 % (0.0-2.0); EOSINOPHILS % (AUTO) 1.8 % (0.0-6.0); HEMATOCRIT 44 % (39-51); HEMOGLOBIN 14.9 g/dL (13.5-17.5); LYMPHOCYTES # (AUTO) 1.7 /CMM (0.8-4.8); LYMPHOCYTES % (AUTO) 20.4 % (20.0-44.0); MEAN CORPUSCULAR HGB CONC 34 g/dl (31.0-36.0); MEAN CORPUSCULAR VOLUME 89 fL (80-96); MONOCYTES # (AUTO) 1.1 /CMM (0.1-1.30); MONOCYTES % (AUTO) 13.8 % (2.0-12.0); NEUTROPHILS # (AUTO) 5.2 /CMM (1.8-8.9); NEUTROPHILS % (AUTO) 63.7 % (43.0-81.0); PLATELET COUNT (AUTO) 266 /CMM (150-450); RED BLOOD CELL COUNT(AUTO) 4.98 MIL/uL (4.5-6.0); WHITE BLOOD COUNT (AUTO) 8.1 K/uL (4.3-11.0)
--- NOTE | 2019-09-15 02:39 | NUR ---
PROZAC 10MG GIVEN PER MD ORDER
[2019-09-15 02:43] LABS: CALCIUM, SERUM 9.1 mg/dL (8.5-10.1); CARBON DIOXIDE 27 mmol/L (21-32); CHLORIDE 103 mmol/L (98-107); CREATININE 0.9 mg/dL (0.6-1.3); GLUCOSE 103 mg/dL (74-106); POTASSIUM 4.2 mmol/L (3.5-5.1); SODIUM SERUM 142 mmol/L (136-145); UREA NITROGEN, BLOOD 18 mg/dL (7-18)
[2019-09-15 02:48] LABS: ALANINE AMINOTRANSFERASE 91 U/L (12-78); ALBUMIN 4.1 g/dL (3.4-5.0); ALCOHOL, BLOOD < 3 mg/dL (0-0); ALKALINE PHOSPHATASE 88 U/L (46-116); ASPARTATE AMINOTRANSFERASE 41 U/L (15-37); BILIRUBIN,DIRECT 0.2 mg/dL (0.0-0.2); BILIRUBIN,TOTAL 1.1 mg/dL (0.2-1.0); TOTAL PROTEIN, SERUM 7.8 g/dL (6.4-8.2)
[2019-09-15 02:49] LABS: ACETAMINOPHEN 0 ug/ml (10-30); SALICYLATE 2.1 mg/dL (2.8-20.0)
[2019-09-15 05:48] VITALS: BP 124/84
--- NOTE | 2019-09-15 05:48 | NUR ---
Patient discharged to home in stable condition. Written and verbal after care instructions given. Patient verbalizes understanding of instruction. Patient is ambulatory with a steady gait.
== END 2019-09-15 05:49 | disposition home or self-care (01) ==
LOC: ER 22:36
DX: F15.10 Other stimulant abuse, uncomplicated (principal); F32.9 Major depressive disorder, single episode, unspecified; F20.9 Schizophrenia, unspecified; F10.10 Alcohol abuse, uncomplicated; F17.200 Nicotine dependence, unspecified, uncomplicated; Y90.0 Blood alcohol level of less than 20 mg/100 ml; Z86.19 Personal history of other infectious and parasitic diseases; Z98.890 Other specified postprocedural states; Z88.1 Allergy status to other antibiotic agents; Z88.6 Allergy status to analgesic agent
CPT/HCPCS: 36415; 80048; 80076; 80307; 80329; 85025; 99283; G0480

== ENCOUNTER 2019-11-19 06:24 | Emergency (ER) | payer OTHER ==
[~2019-11-19] VITALS: Ht 167.6 cm; Wt 90.7 kg
--- NOTE | 2019-11-19 06:56 | NUR ---
PT BIBSELF C/O AUDITORY HALLUCINATIONS. PT ALSO STATES HE IS PARANOID. PT AAOX4, CALM AND COOPERATIVE. VITAL SIGNS STABLE. SKIN WARM AND INTACT. AMBULATORY WITH STEADY GAIT. NO ACUTE DISTRESS NOTED AT THIS TIME. PT PLACED IN GOWN, BELONGINGS COLLECTED AND PLACED IN PATIENT LOCKER. SITTER AT BEDSIDE. WILL CONTINUE TO MONITOR.
[2019-11-19] MEDS ORDERED: OLANZAPINE 5 MG TABLET PO ONE (07:00)
[2019-11-19 07:18] LABS: BASOPHILS % (AUTO) 0.4 % (0.0-2.0); EOSINOPHILS % (AUTO) 3.5 % (0.0-6.0); HEMATOCRIT 43 % (39-51); HEMOGLOBIN 14.4 g/dL (13.5-17.5); LYMPHOCYTES # (AUTO) 1.8 /CMM (0.8-4.8); LYMPHOCYTES % (AUTO) 25.6 % (20.0-44.0); MEAN CORPUSCULAR HGB CONC 34 g/dl (31.0-36.0); MEAN CORPUSCULAR VOLUME 90 fL (80-96); MONOCYTES # (AUTO) 0.8 /CMM (0.1-1.30); NEUTROPHILS # (AUTO) 4.2 /CMM (1.8-8.9); NEUTROPHILS % (AUTO) 59.5 % (43.0-81.0); PLATELET COUNT (AUTO) 278 /CMM (150-450)
[2019-11-19 07:43] LABS: CALCIUM, SERUM 8.5 mg/dL (8.5-10.1); CARBON DIOXIDE 28 mmol/L (21-32); CHLORIDE 105 mmol/L (98-107); CREATININE 1.1 mg/dL (0.6-1.3); GLUCOSE 124 mg/dL (74-106); POTASSIUM 3.5 mmol/L (3.5-5.1); SODIUM SERUM 140 mmol/L (136-145); UREA NITROGEN, BLOOD 8 mg/dL (7-18)
[2019-11-19 07:47] LABS: ALANINE AMINOTRANSFERASE 41 U/L (12-78); ALBUMIN 3.7 g/dL (3.4-5.0); ALKALINE PHOSPHATASE 78 U/L (46-116); ASPARTATE AMINOTRANSFERASE 28 U/L (15-37); BILIRUBIN,DIRECT 0.1 mg/dL (0.0-0.2); BILIRUBIN,TOTAL 0.6 mg/dL (0.2-1.0)
[2019-11-19 07:50] LABS: ACETAMINOPHEN 0 ug/ml (10-30); SALICYLATE 1.9 mg/dL (2.8-20.0)
[2019-11-19 07:51] LABS: ALCOHOL, BLOOD < 3 mg/dL (0-0)
[2019-11-19] MEDS ORDERED: OLANZAPINE 5 MG TABLET ONE (08:07)
--- NOTE | 2019-11-19 08:12 | NUR ---
medicated as orgered,dietary called for breakfact tray
--- NOTE | 2019-11-19 11:30 | NUR ---
Sleeping soundly easily awakened. Urine collected and sent
[2019-11-19 12:38] LABS: APPEARANCE,URINE CLEAR (CLEAR); BILIRUBIN,URINE NEGATIVE (NEGATIVE); BLOOD, URINE NEGATIVE Ery/uL (NEGATIVE); COLOR,URINE YELLOW (YELLOW); KETONES,URINE NEGATIVE (NEGATIVE); LEUKOCYTE ESTERASE ,URINE NEGATIVE (NEGATIVE); NITRITE, URINE NEGATIVE (NEGATIVE); PROTEIN,URINE NEGATIVE (NEGATIVE); UGLUCOSE NEGATIVE (NEGATIVE); UROBILINOGEN,URINE 0.2 EU/dL (0.2)
--- NOTE | 2019-11-19 13:53 | NUR ---
FAXED CLINICALS TO [facility]
--- NOTE | 2019-11-19 15:54 | NUR ---
PER CM JESSICA AT INTAKE, TRYING TO MAKE BEDS AVAILABLE AT [facility] STILL NEEDS TO REVIEW CLINICALS.
--- NOTE | 2019-11-19 18:46 | NUR ---
STILL WAITING FOR BED AVAILABILITY AT [place], PER JESSICA CM AT [facility] AND MAY TAKE A WHILE
--- NOTE | 2019-11-20 04:33 | NUR ---
PT RESTING COMFORTABLY IN BED. VITAL SIGNS STABLE. SITTER AT BEDSIDE. WILL CONTINUE TO MONITOR
--- NOTE | 2019-11-20 05:29 | NUR ---
PER [facility]TA[facility], NO BEDS AVAILABLE AT THIS TIME
--- NOTE | 2019-11-20 08:31 | NUR ---
FOOD TRAY AT BEDSIDE
--- NOTE | 2019-11-20 10:16 | NUR ---
JOSHUA was informed by Luan at [facility] they have 4 male beds available at [place]. [facility] [employer] faxed clinical referral packet to [facility] intake.
--- NOTE | 2019-11-20 11:12 | NUR ---
patient accepted at [facility], waiting for bed information.
--- NOTE | 2019-11-20 11:14 | NUR ---
[employer] spoke with CJ at [facility] intake regarding updated. CJ informed STE[employer]ING pt has been accepted at [facility] and they will have discharges at 12:30PM. STEAM CONDITIONER F[employer]ING updated ALEIDA Prasad in ED.
--- NOTE | 2019-11-20 13:52 | NUR ---
JOSHUA received a call from DAVID at [facility] intake stating pt has been accepted to [place]. Accepting Dr. Spain/Dr. Villanueva. Report called to x [phone] Addendum: 11/20/19 at 1354 by CHESTER STUBBS SW Report to ALEIDA Wilkes at [place]. Rowdy in ED updated.
--- NOTE | 2019-11-20 14:20 | NUR ---
Report given to milka SHIN for continuity of care at [facility]. pt accepted to room 417a.
--- NOTE | 2019-11-20 17:24 | NUR ---
CALLED AM [facility] FOR [place], ETA OF 1800 WAS GIVEN. OPTION 1
--- NOTE | 2019-11-20 18:28 | NUR ---
Report given to Mason for transport to [facility]
[2019-11-20 18:29] VITALS: BP 132/80
== END 2019-11-20 18:29 ==
LOC: ER 06:28
DX: R45.851 Suicidal ideations (principal); F32.9 Major depressive disorder, single episode, unspecified; F20.9 Schizophrenia, unspecified; F17.200 Nicotine dependence, unspecified, uncomplicated; F98.8 Other specified behavioral and emotional disorders with onset usually occurring in childhood and adolescence; Z98.890 Other specified postprocedural states; Z88.1 Allergy status to other antibiotic agents; Z88.6 Allergy status to analgesic agent
CPT/HCPCS: 36415; 80048; 80076; 80305; 80307; 80329; 81001; 85025; 99285; G0480; 81000-TC

== ENCOUNTER 2019-12-25 23:36 | Emergency (ER) | payer OTHER ==
[~2019-12-25] VITALS: Ht 170.2 cm; Wt 90.7 kg
--- NOTE | 2019-12-26 00:02 | NUR ---
Suzan aaron in [facility] - 12/26/19 at 0023 by [facility] [employer] CALLED FOR WANDING.
--- NOTE | 2019-12-26 00:17 | NUR ---
BIBS FOR C /O SI W/ PLAN TO RUN IN TO TRAFFIC. VSS. SAFETY PRECUATION IN PLACE FOR SAFETY. UNABLE TO PROVIDE URINE AT THIS TIME,
--- NOTE | 2019-12-26 00:20 | NUR ---
SECURITY CALLED FOR WANDING.
--- NOTE | 2019-12-26 00:22 | NUR ---
PT PLACED IN GOWN. PLACED ON MONITOR AND PULSE OX. VSS. AWAITING URINE SAMPLE.
[2019-12-26] MEDS ORDERED: OLANZAPINE 5 MG TABLET PO ONE (00:30)
[2019-12-26 00:38] LABS: BASOPHILS % (AUTO) 0.4 % (0.0-2.0); EOSINOPHILS % (AUTO) 3.7 % (0.0-6.0); HEMATOCRIT 45 % (39-51); HEMOGLOBIN 14.9 g/dL (13.5-17.5); LYMPHOCYTES # (AUTO) 2.6 /CMM (0.8-4.8); LYMPHOCYTES % (AUTO) 33.1 % (20.0-44.0); MEAN CORPUSCULAR HGB CONC 33 g/dl (31.0-36.0); MEAN CORPUSCULAR VOLUME 91 fL (80-96); MONOCYTES # (AUTO) 0.8 /CMM (0.1-1.30); MONOCYTES % (AUTO) 10.1 % (2.0-12.0); NEUTROPHILS # (AUTO) 4.1 /CMM (1.8-8.9); NEUTROPHILS % (AUTO) 52.7 % (43.0-81.0); PLATELET COUNT (AUTO) 301 /CMM (150-450); RED BLOOD CELL COUNT(AUTO) 4.89 MIL/uL (4.5-6.0); WHITE BLOOD COUNT (AUTO) 7.7 K/uL (4.3-11.0)
[2019-12-26 00:46] LABS: CALCIUM, SERUM 8.6 mg/dL (8.5-10.1); CARBON DIOXIDE 32 mmol/L (21-32); CHLORIDE 102 mmol/L (98-107); GLUCOSE 102 mg/dL (74-106); POTASSIUM 3.7 mmol/L (3.5-5.1); SODIUM SERUM 141 mmol/L (136-145); UREA NITROGEN, BLOOD 7 mg/dL (7-18)
[2019-12-26 00:51] LABS: ALANINE AMINOTRANSFERASE 54 U/L (12-78); ALBUMIN 3.9 g/dL (3.4-5.0); ALCOHOL, BLOOD < 3 mg/dL (0-0); ALKALINE PHOSPHATASE 130 U/L (46-116); ASPARTATE AMINOTRANSFERASE 28 U/L (15-37); BILIRUBIN,DIRECT 0.1 mg/dL (0.0-0.2); BILIRUBIN,TOTAL 0.3 mg/dL (0.2-1.0); TOTAL PROTEIN, SERUM 7.3 g/dL (6.4-8.2)
[2019-12-26 00:59] LABS: ACETAMINOPHEN 0 ug/ml (10-30); SALICYLATE 2.5 mg/dL (2.8-20.0)
--- NOTE | 2019-12-26 02:06 | NUR ---
PT UNABLE TO PROVIDE URINE SAMPLE AT THIS TIME. MD CHEN
--- NOTE | 2019-12-26 02:20 | NUR ---
URINE COLLECTED AND SENT TO LAB. PT PLACED IN BED 11
[2019-12-26 03:15] LABS: APPEARANCE,URINE CLEAR (CLEAR); BILIRUBIN,URINE NEGATIVE (NEGATIVE); BLOOD, URINE NEGATIVE Ery/uL (NEGATIVE); COLOR,URINE YELLOW (YELLOW); KETONES,URINE NEGATIVE (NEGATIVE); LEUKOCYTE ESTERASE ,URINE NEGATIVE (NEGATIVE); NITRITE, URINE NEGATIVE (NEGATIVE); PH,URINE 6.5 (5.0-8.0); PROTEIN,URINE NEGATIVE (NEGATIVE); UGLUCOSE NEGATIVE (NEGATIVE)
[2019-12-26 03:17] LABS: BACTERIA,URINE Few /HPF (None Seen); RBC,URINE 0-2 /HPF (0-2); SQUAMOUS EPITHELIAL CELL,UR Rare /HPF (None Seen); WBC,URINE 0-2 /HPF (0-3)
[2019-12-26 03:18] LABS: CALCIUM OXALATE CRYSTALS,UR Moderate /HPF (None Seen); MUCUS,URINE Many /LPF (None Seen)
--- NOTE | 2019-12-26 03:22 | NUR ---
PT ASLEEP. VSS.
--- NOTE | 2019-12-26 05:27 | NUR ---
PER BREANNA FROM [facility], NO BEDS AVAILABLE AT THIS TIME
--- NOTE | 2019-12-26 05:53 | NUR ---
PT AMBULATED TO THE RESTROOM. VSS.
--- NOTE | 2019-12-26 06:37 | NUR ---
PT ACCEPTED TO [facility]. MARTINEZ AND DR. GIL.
--- NOTE | 2019-12-26 06:38 | NUR ---
Patient is resting comfortably in bed with eyes closed. Easily aroused. VSS
--- NOTE | 2019-12-26 07:10 | NUR ---
CALLED CALL THE CAR FOR TRANSPORTATION. [facility] ETA 0538 CONFIRMATION #[id number]
--- NOTE | 2019-12-26 07:15 | NUR ---
REPORT GIVEN TO MARIAN FROM [facility] FOR [facility]
--- NOTE | 2019-12-26 07:58 | NUR ---
Report given to [facility] ambulance for continuity of care
--- NOTE | 2019-12-26 08:07 | NUR ---
PATIENT LEFT FOR [facility]. NO DISTRESS NOTED. VITALS STABLE.
[2019-12-26 08:08] VITALS: BP 116/72
== END 2019-12-26 08:08 ==
LOC: ER 23:37
DX: R45.851 Suicidal ideations (principal); F32.9 Major depressive disorder, single episode, unspecified; F20.9 Schizophrenia, unspecified; Z86.19 Personal history of other infectious and parasitic diseases; Z98.890 Other specified postprocedural states; Z88.1 Allergy status to other antibiotic agents; Z88.6 Allergy status to analgesic agent
CPT/HCPCS: 36415; 80048; 80076; 80305; 80307; 80329; 81001; 85025; 99285; G0480; 81000-TC

== ENCOUNTER 2020-01-01 12:27 | Emergency (ER) | payer OTHER ==
[~2020-01-01] VITALS: Ht 170.2 cm; Wt 99.8 kg
[2020-01-01 12:39] VITALS: BP 141/84
--- NOTE | 2020-01-01 12:50 | NUR ---
SEEN AND EXAMINED BY .
--- NOTE | 2020-01-01 12:55 | NUR ---
Patient given written and verbal discharge instructions. Patient verbalizes understanding of instructions. Patient is ambulatory with steady gait. Refuses offer of group home placement. Patient given list of available shelters in surrounding area.
== END 2020-01-01 12:56 | disposition home or self-care (01) ==
LOC: ER 12:33
DX: F41.9 Anxiety disorder, unspecified (principal); F29 Unspecified psychosis not due to a substance or known physiological condition; F32.9 Major depressive disorder, single episode, unspecified; F20.9 Schizophrenia, unspecified; Z86.19 Personal history of other infectious and parasitic diseases; Z98.890 Other specified postprocedural states; Z88.1 Allergy status to other antibiotic agents; Z88.6 Allergy status to analgesic agent; Z76.0 Encounter for issue of repeat prescription

== ENCOUNTER 2020-01-15 17:41 | Emergency (ER) | payer OTHER ==
[~2020-01-15] VITALS: Ht 167.6 cm; Wt 93.0 kg
--- NOTE | 2020-01-15 17:55 | NUR ---
"My Toe started hurting/I have an ingrown toenail"a/ox4, ambulatory, with steady gait.
--- NOTE | 2020-01-15 18:31 | NUR ---
Patient ambulatory with steady gait. No distress noted. Patient discharged to home in stable condition. Written and verbal after care instructions given. Patient verbalizes understanding of instruction.
--- NOTE | 2020-01-15 18:32 | NUR ---
Patient given written and verbal discharge instructions. Patient verbalizes understanding of instructions. Patient is ambulatory with steady gait. Refuses offer of [facility] placement. Patient given list of available shelters in surrounding area. Refused tap card and food.
[2020-01-15 18:34] VITALS: BP 142/80
== END 2020-01-15 18:34 | disposition home or self-care (01) ==
LOC: ER 17:41
DX: M79.674 Pain in right toe(s) (principal); F32.9 Major depressive disorder, single episode, unspecified; F90.9 Attention-deficit hyperactivity disorder, unspecified type; F20.9 Schizophrenia, unspecified; F17.200 Nicotine dependence, unspecified, uncomplicated; Z98.890 Other specified postprocedural states; Z88.1 Allergy status to other antibiotic agents; Z88.6 Allergy status to analgesic agent

== ENCOUNTER 2020-01-18 12:14 | Emergency (ER) | payer OTHER ==
[~2020-01-18] VITALS: Ht 170.2 cm; Wt 99.8 kg
--- NOTE | 2020-01-18 13:16 | NUR ---
Patient awake alert to name noted ambulatory calm @ this time he stated hearing vouices ,sitter @ bedside continue to monitor
[2020-01-18 13:35] LABS: BASOPHILS % (AUTO) 0.5 % (0.0-2.0); EOSINOPHILS % (AUTO) 3.7 % (0.0-6.0); HEMATOCRIT 43 % (39-51); HEMOGLOBIN 14.2 g/dL (13.5-17.5); LYMPHOCYTES # (AUTO) 1.9 /CMM (0.8-4.8); LYMPHOCYTES % (AUTO) 28.4 % (20.0-44.0); MEAN CORPUSCULAR HGB CONC 33 g/dl (31.0-36.0); MEAN CORPUSCULAR VOLUME 91 fL (80-96); MONOCYTES # (AUTO) 0.5 /CMM (0.1-1.30); MONOCYTES % (AUTO) 7.6 % (2.0-12.0); NEUTROPHILS # (AUTO) 4.1 /CMM (1.8-8.9); NEUTROPHILS % (AUTO) 59.8 % (43.0-81.0); PLATELET COUNT (AUTO) 262 /CMM (150-450); RED BLOOD CELL COUNT(AUTO) 4.66 MIL/uL (4.5-6.0); WHITE BLOOD COUNT (AUTO) 6.8 K/uL (4.3-11.0)
[2020-01-18 13:43] LABS: CALCIUM, SERUM 8.5 mg/dL (8.5-10.1); CARBON DIOXIDE 30 mmol/L (21-32); CHLORIDE 106 mmol/L (98-107); CREATININE 0.9 mg/dL (0.6-1.3); GLUCOSE 88 mg/dL (74-106); POTASSIUM 3.6 mmol/L (3.5-5.1); SODIUM SERUM 141 mmol/L (136-145); UREA NITROGEN, BLOOD 5 mg/dL (7-18)
[2020-01-18 13:49] LABS: ACETAMINOPHEN < 2 ug/ml (10-30); ALANINE AMINOTRANSFERASE 36 U/L (12-78); ALBUMIN 3.4 g/dL (3.4-5.0); ALCOHOL, BLOOD < 3 mg/dL (0-0); ALKALINE PHOSPHATASE 87 U/L (46-116); ASPARTATE AMINOTRANSFERASE 13 U/L (15-37); BILIRUBIN,DIRECT 0.1 mg/dL (0.0-0.2); BILIRUBIN,TOTAL 0.3 mg/dL (0.2-1.0); SALICYLATE 1.4 mg/dL (2.8-20.0); TOTAL PROTEIN, SERUM 6.6 g/dL (6.4-8.2)
--- NOTE | 2020-01-18 14:41 | NUR ---
Patient awake alert no agitation urine obtained and send to lab
[2020-01-18 14:46] LABS: APPEARANCE,URINE Clear (CLEAR); BILIRUBIN,URINE Negative (NEGATIVE); BLOOD, URINE Negative Ery/uL (NEGATIVE); COLOR,URINE Yellow (YELLOW); KETONES,URINE Negative (NEGATIVE); LEUKOCYTE ESTERASE ,URINE Negative (NEGATIVE); NITRITE, URINE Negative (NEGATIVE); PROTEIN,URINE Negative (NEGATIVE); UGLUCOSE Negative (NEGATIVE); UROBILINOGEN,URINE 0.2 EU/dL (0.2)
--- NOTE | 2020-01-18 15:42 | NUR ---
JOSHUA received a call from ED RN Nando requesting for SW to refer pt to [facility] for voluntary psychiatric admission. Per MD notes, pt is 49-year-old male with known psychiatric history who states he is depressed and suicidal. Patient states he plans to run into traffic. Patient does admit to using methamphetamines 2 days ago. JOSHUA is familiar with the pt from several ED visits in the past for the same reasons. JOSHUA contacted Rodrick at [facility] and referred pt for voluntary psychiatric admission. Per Rodrick, they will have a bed for the pt. JOSHUA faxed clinicals to [facility] intake .
--- NOTE | 2020-01-18 15:45 | NUR ---
JOSHUA received a call from Angelica at [facility]. JOSHUA informed her that clinicals were faxed a few minutes ago and she should be receiving them in a few minutes. Addendum: 01/18/20 at 1554 by CHESTER FORRESTER JOSHUA updated Rowdy in ED regarding being referred to [facility] and intake to f/u with ED.
--- NOTE | 2020-01-18 15:52 | NUR ---
CHESTER CALLED INFO HAS BEEN FAXED AND SHE CALLED JAY. INTAKE WILL FOLLOW UP.
--- NOTE | 2020-01-18 16:08 | NUR ---
TIP [employer]ITCHER faxed clinicals again with " medically cleared" note to Jackie in intake at [facility].
--- NOTE | 2020-01-18 16:11 | NUR ---
JOSHUA received a call back from Jackie at [facility] intake, stating pt has been accepted to [facility]. Accepting Dr Roberts /Dr. Byrd. Report to TIKA Bazan at . JOSHUA updated Rowdy in ED.
--- NOTE | 2020-01-18 16:15 | NUR ---
pt has been accepted to [facility]. Accepting Dr Roberts /Dr. Byrd. Report to TIKA Bazan at . LIGHTING ENGINEER updated Rowdy in ED.
--- NOTE | 2020-01-18 16:17 | NUR ---
REPORT GIVEN TO ALEIDA MCGRAW FOR [facility].
[2020-01-18 16:18] VITALS: BP 134/81
--- NOTE | 2020-01-18 17:00 | NUR ---
Patient awake alert non distress no agitation no hallucination very cooperative non distress
--- NOTE | 2020-01-18 17:12 | NUR ---
CALLED [facility] RES#[id number]
--- NOTE | 2020-01-18 17:29 | NUR ---
Patient asleep but arousable non distress @ this time no hallucination no agitation continue to monitor
--- NOTE | 2020-01-18 18:07 | NUR ---
Patient is voluntary and trsfer to [facility]
== END 2020-01-18 18:08 ==
LOC: ER 12:17
DX: R45.851 Suicidal ideations (principal); F32.9 Major depressive disorder, single episode, unspecified; F20.9 Schizophrenia, unspecified; Z86.19 Personal history of other infectious and parasitic diseases; Z98.890 Other specified postprocedural states; Z88.1 Allergy status to other antibiotic agents; Z88.6 Allergy status to analgesic agent; Z60.2 Problems related to living alone
CPT/HCPCS: 36415; 80048; 80076; 80305; 80307; 80329; 81001; 85025; 99285; G0480; 81000-TC